=== PATIENT | male | born 1950 | race Caucasian/White ===

== ENCOUNTER → 2018-01-04 | Outpatient (CLI) | payer OTHER, BC ==
[~2018-01-04] MED LIST: B-COCAP2 PO; CINN1CAP2 PO; GLIM2TAB2 PO; LSN20 PO; MULT-506 PO; OMEG10007 PO; ZCR40 PO
[2018-01-04 19:01] LABS: HEMATOCRIT 39.1 % (42-52); HEMOGLOBIN 13.4 g/dL (14.0-18.0); MEAN CELL VOLUME 90.1 fL (80-100); MEAN CORPUSCULAR HEMOGLOBIN 30.9 pg (25-34); MEAN CORPUSCULAR HGB CONC 34.3 g/dl (32-36); MEAN PLATELET VOLUME 9.3 fL (7.4-10.4); PLATELET COUNT 133 K/uL (130-400); RED CELL DISTRIBUTION WIDTH CV 12.4 % (11.5-14.5); RED CELL DISTRIBUTION WIDTH SD 40.5 fL (36.4-46.3)
--- NOTE | 2018-01-04 19:40 | DIAGNOSTIC IMAGING REPORT ---
ULTRASOUND LEFT LOWER EXTREMITY VENOUS CLINICAL HISTORY: Left leg pain. COMPARISON STUDY: No priors. TECHNIQUE: Real-time, grayscale, and color Doppler sonography of the deep veins of the left lower extremity was performed from the inguinal crease to the calf. Compression and augmentation were utilized. FINDINGS: There is no sonographic evidence of deep venous thrombosis identified in the left lower extremity. The common femoral, superficial femoral, and popliteal veins are patent and normally compressible. The greater saphenous vein and the profunda femoris vein at the junction with the common femoral vein are clear. The visualized calf veins are patent. A popliteal cyst measures 2.2 x 1.6 x 3.3 cm. IMPRESSION: 1. There is no sonographic evidence of deep venous thrombosis identified in the left lower extremity. 2. Popliteal cyst. Electronically signed by: Dom Mendoza M.D. 01/04/2018 7:39 PM Dictated Date/Time: 01/04/2018 7:38 PM
== END | disposition home or self-care (01) ==
LOC: C.ULTR 18:11
PROVIDERS: ATTEND Physician Assistant
DX: M25.462 Effusion, left knee (principal); M71.22 Synovial cyst of popliteal space [Baker], left knee

== ENCOUNTER 2018-12-22 05:57 | Observation (INO) ==
--- OUTSIDE RECORDS SUMMARY | 2018-12-22 06:00 | External Medical Summary | Continuity of Care Document ---
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 , M.D. Start: 22-Feb-2018 Refills: 0 Atorvastatin Calcium 20 MG Oral Tablet; take 1 tablet by mouth once daily , M.D. Start: 22-Feb-2018 Refills: 0 90 Tablet Bottle Vitamin B Complex Oral Tablet; TAKE 1 TABLET DAILY. , M.D. Start: 22-Feb-2018 Refills: 0 Cinnamon 500 MG Oral Capsule; TAKE 1 CAPSULE Daily , M.D. Start: 22-Feb-2018 Refills: 0 Coenzyme Q-10 200 MG Oral Capsule; TAKE 1 CAPSULE Daily , M. D. Start: 22-Feb-2018 Refills: 0 Fish Oil 1000 MG Oral Capsule; TAKE 2 CAPSULE Daily , M.D. Start: 22-Feb-2018 Refills: 0 Glimepiride 2 MG Oral Tablet; TAKE 1 TABLET DAILY DIRECTE D. , M.D. Start: 22-Feb-2018 Refills: 0 Indomethacin 25 MG Oral Capsule; TAKE 1 CAPSULE 3 TIMES DAILY WITH FOOD NEEDED. , M.D. Start: 22-Feb-2018 Refills: 0 Lisinopril 20 MG Oral Tablet; TAKE 1 TABLET DAILY DIRECTE D. , M.D. Start: 22-Feb-2018 Quantity: 90 Refills: 3 Mometasone Furoate 50 MCG/ACT Nasal Susp ension; USE 2 SPRAYS IN EACH NOSTRIL ONCE DAILY , M.D. Start: 22-Feb-2018 Refills: 0 17 GM Inhaler Multi Vitamin Daily Oral Tablet; TAKE 1 TABLET DAILY. , M.D. Start: 22-Feb-2018 Refills: 0 Procedures Procedures not documented Immunizations Immunizations not documented Plan of Treatment Planned Observations Planned Goals not documented Results No Known Results Results not documented Encounters Appointment; Akira Pennington M.D. 23-Feb-2018 9:30 Encounter Diagnosis: Problem not documented
[2018-12-22] MEDS ORDERED: ONDANSETRON INJ 2 MG/ML 2 ML VIAL IV STA (07:14)
[2018-12-22] MEDS ORDERED: HYDROmorphone INJ 0.5 MG/0.5 ML SYR IV STA (07:14)
--- NOTE | 2018-12-22 07:18 | Emergency Department Note ---
ED Visit Note I, Dr. Vani Calix, PGY3, saw this patient with my attending, Dr. Brown, and participated in the care and management of this patient. Resident Activity Tracking Resident Involvement: Resident Care Provided Care Provided: Adult ED
--- NOTE | 2018-12-22 07:30 | Emergency Department Note ---
Entered by Angelica Millan acting as a scribe for Justin Brown MD History of Present Illness General Chief complaint: Rib Injury/Pain Stated complaint: Right rib pain Time Seen by Provider: 12/22/18 06:47 Source: patient History of Present Illness Onset (ago): hour(s) (this morning) Location: back (right-sided posterior ribs) Severity: severe Pain Consistency: + other (episode) Maximum Pain Intensity: 9 Quality: + sharp Relieved By: + medication (Fentanyl) and + other (lying still) Exacerbated By: + movement Associated symptoms: + denies other symptoms (dizziness, palpitations, difficulties breathing); no chest pain and no shortness of breath The patient is a 68 year old male that is presenting to the Emergency Room with complaints of an episode of sharp right-sided back and rib pain that started this morning around 0300. The patient reports that he was sleeping and felt a pop in his back that was followed by severe back spasms that the patient descr ibes as 10/10. He states that he was able to move to a chair but then was unable to move again secondary to the pain. He notes that his called EMS at that time. The patient reports that he took oxycodone but noticed no change in the pain. He notes that EMS gave him Fentanyl on the way to the Emergency Room which brought the pain to 5/10. He states that the pain is brought to a 0/10 when he is lying still, but he notes that the pain is exacerbated by any movement. He denies any chest pain, dizziness, palpitations, difficulties breathing, shortness of breath, or pain with movement of his arms. He notes that he fell and scraped his back in the same area 5 days ago but states that the pain has been improving with 2 daily doses of Ibuprofen. He reports that he has a history of controlled diabetes and gout. He denies taking any blood thinners. He states that he was in the Emergency Room for kidney stones 1 month ago, but he notes that he has passed a stone since then. The patient reports that he has a right-sided abdominal hernia that is unchanged. Home Medications Home Medications Medication Instructions Recorded Confirmed Type allopurinol 1 tab PO DAILY 11/18/18 12/22/18 History atorvastatin 20 mg PO DAILY 11/18/18 12/22/18 History cinnamon bark [Cinnamon] 500 mg PO DAILY 11/18/18 12/22/18 History coenzyme Q10 10 mg PO DAILY 11/18/18 12/22/18 History fish [id number]-vit C-vit E 1 cap PO DAILY 11/18/18 12/22/18 History glimepiride 2 mg PO DAILY 11/18/18 12/22/18 History indomethacin 25 mg PO TID PRN 11/18/18 12/22/18 History lisinopril 20 mg PO DAILY 11/18/18 12/22/18 History mometasone 2 spray INTRANASAL DAILY 11/18/18 12/22/18 History multivitamin 1 tab PO DAILY 11/18/18 12/22/18 History oxycodone 5 mg PO Q4H PRN #15 tab 11/18/18 12/22/18 Rx tamsulosin [Flomax] 0.4 mg PO DAILY #7 cap 11/18/18 12/22/18 Rx vitamin B complex 1 tab PO DAILY 11/18/18 12/22/18 History Allergies Allergy/AdvReac Type Severity Reaction Status Date / Time hydromorphone [From Dilaudid] AdvReac Intermediate vomiting Verified 12/22/18 13:23 Past Med/Surg History Medical History Hypertension (Chronic) HTN (hypertension) (Chronic) DM type 2 (diabetes mellitus, type 2) (Chronic) HLD (hyperlipidemia) (Chronic) History of prostate cancer (Chronic) Gout (Chronic) Hematuria Surgical History History of colonoscopy History of prostate surgery S/P cataract surgery S/P cholecystectomy History of cystoscopy Social History Preferred Language: Nepali Communication Ability: Effective Gyro Compass Tester Required: No Beliefs That Will Affect Care: None marital status: Current Living Situation: Spouse Other Information That Helps Us Care for You: No Feels Safe at Home: Yes Safety Concerns: Feels Safe At This Time Smoking Status: Never smoker Do You Dip or Chew Tobacco: No Hx Alcohol Use: Yes Alcohol type: wine Hx Substance Use: No Review of Systems See HPI for pertinent positives & negatives. and A total of 10 systems reviewed and were otherwise negative Physical Exam Vital Signs Vital Signs - 24 hr 12/22/18 06:05 12/22/18 09:54 12/22/18 11:18 Temperature 36.9 C Temperature Source Oral Sepsis Recent Fever Within 48 Hours No Sepsis Action Taken by Nursing No Action Required Pulse Rate 82 Pulse Rate [Left Finger] 87 77 Pulse Rhythm Regular Pulse Rhythm [Left Finger] Regular Pulse Strength Normal Pulse Strength [Left Finger] Normal Respiratory Rate 18 20 22 Respiratory Effort / Characteristics Non-Labored Spontaneous Non-Labored Spontaneous Respiratory Depth Normal Normal Respiratory Pattern Regular Regular Blood Pressure 130/89 Blood Pressure [Right Arm] 127/68 137/80 Blood Pressure Mean 102 Blood Pressure Mean [Right Arm] 87 99 Blood Pressure Position Lying Blood Pressure Position [Right Arm] Lying Pulse Oximetry 94 97 97 Oxygen Delivery Method Room Air Room Air Room Air 12/22/18 12:28 Temperature Temperature Source Sepsis Recent Fever Within 48 Hours Sepsis Action Taken by Nursing Pulse Rate Pulse Rate [Left Finger] 61 Pulse Rhythm Pulse Rhythm [Left Finger] Regular Pulse Strength Pulse Strength [Left Finger] Normal Respiratory Rate 18 Respiratory Effort / Characteristics Non-Labored Respiratory Depth Normal Respiratory Pattern Blood Pressure Blood Pressure [Right Arm] 131/79 Blood Pressure Mean Blood Pressure Mean [Right Arm] 96 Blood Pressure Position Blood Pressure Position [Right Arm] Sitting Pulse Oximetry 96 Oxygen Delivery Method Room Air General: Non-ill appearing older male who appears to be in significant pain with palpation of right posterior ribs. HEENT: Normal cephalic atraumatic. Pupils are equal round and reactive to light. Extraocular movements are intact. Oropharynx is pink with moist mucous membranes. No swelling of the mouth lips or tongue. Neck: Supple with a midline trachea. No meningeal signs or stiffness, no JVD or bruits. No Stridor. Chest: Clear to auscultation bilaterally. No wheezes or rhonchi. No increased work of breathing. No crepitus. Heart: regular rate and rhythm. Abdomen: Soft nontender, nondistended without rebound guarding or rigidity. Non- tender right-sided hernia that is unchanged from baseline. Extremities: No cyanosis clubbing or edema. No calf tenderness or asymmetry Spine/Back. No CVA tenderness Skin: Good turgor without rashes. Neurologic exam: Cranial nerves two through 12 are intact. Motor and sensation are intact and symmetrical throughout. Course 07:The patient was evaluated in room A09B. A complete history and physical examination was performed. 807: Upon re-evaluation, the patient continues to be in significant pain. I updated him on his current results. The patient will complete a CT scan once his pain and nausea improve. 1015: I updated the patient on his current lab and imaging results. The patient continues to experience pain and nausea. 1045: I reviewed the patient's case with Dr. Burch, [facility] Hospitalist, will evaluate the patient for further management. 1050: Upon reevaluation, the patient is resting comfortably. I discussed laboratory and radiographic results with the patient. He verbalized agreement of the treatment plan. The patient will be evaluated for further management and care. Consultations Consultation #1: I reviewed the patient's case with Dr. Burch, [facility] [address] talist, will evaluate the patient for further management. Time: 10:45 Administered Medications Allopurinol (Zyloprim) 100 mg PO DAILY [facility] Stop: 01/21/19 12:29 Last Admin: 12/22/18 13:48 Dose: 100 mg Documented by: [id number] Atorvastatin Calcium (Lipitor) 20 mg PO DAILY [facility] Stop: 01/21/19 12:29 Last Admin: 12/22/18 13:48 Dose: 20 mg Documented by: [id number] Fluticasone Propionate (Flonase) 2 sprays SHERIF DAILY [facility] Stop: 01/21/19 12:29 Last Admin: 12/22/18 13:47 Dose: 2 sprays Documented by: [id number] Ioversol (Optiray 320 100ml) 94 ml IV ONCE PRN PRN Reason: Interaction Checking Stop: 12/26/18 09:41 Last Admin: 12/22/18 09:42 Dose: 94 ml Documented by: [id number] Lidocaine (Lidoderm 5%) 1 patch TD QAM [facility] Stop: 01/21/19 13:59 Last Admin: 12/22/18 13:47 Dose: 1 patch Documented by: [id number] Discontinued Medications Diazepam (Valium) 5 mg PO NOW ONE Stop: 12/22/18 13:00 Last Admin: 12/22/18 13:55 Dose: 5 mg Documented by: [id number] Hydromorphone HCl (Dilaudid) 0.5 mg IV NOW STA Stop: 12/22/18 07:15 Last Admin: 12/22/18 07:29 Dose: 0.5 mg Documented by: [id number] Hydromorphone HCl (Dilaudid) 1 mg IV NOW STA Stop: 12/22/18 08:15 Last Admin: 12/22/18 08:19 Dose: 1 mg Documented by: [id number] Promethazine HCl 12.5 mg/ (Sodium Chloride) 50.5 mls @ 202 mls/hr IV NOW STA Stop: 12/22/18 10:10 Last Infusion: 12/22/18 10:25 Dose: 0 mls/hr Documented by: [id number] Admin: 12/22/18 10:06 Dose: 202 mls/hr Documented by: [id number] Ketorolac Tromethamine (Toradol) 30 mg IV NOW ONE Stop: 12/22/18 08:15 Last Admin: 12/22/18 08:19 Dose: 30 mg Documented by: [id number] Ketorolac Tromethamine (Toradol) 15 mg IV NOW STA Stop: 12/22/18 11:47 Last Admin: 12/22/18 12:21 Dose: Not Given Documented by: [id number] Ketorolac Tromethamine (Toradol) Confirm Administered Dose 30 mg .ROUTE .STK-MED ONE Stop: 12/22/18 11:55 Last Admin: 12/22/18 11:58 Dose: 30 mg Documented by: [id number] Ondansetron HCl (Zofran) 4 mg IV NOW STA Stop: 12/22/18 07:15 Last Admin: 12/22/18 07:29 Dose: 4 mg Documented by: [id number] Promethazine HCl (Phenergan) Confirm Administered Dose 12.5 mg IV .STK-MED ONE Stop: 12/22/18 10:01 Last Admin: 12/22/18 10:06 Dose: Not Given Documented by: [id number] Medical Decision Making Differential Diagnosis Differential Diagnosis: Etiologies such as rib fracture, pulmonary contusion, pneumothorax, kidney stones, electrolyte or metabolite abnormalities as well as others were considered. Medical Records Attestation: I reviewed the patient's medical records. Home Medications Current Medication List: was personally reviewed by me Laboratory Data Attestation: I reviewed the patient's lab results. Result diagrams: 12/22/18 07:45 12/22/18 07:45 Lab Results 12/22/18 12/22/18 Range/Units 07:45 07:45 WBC 6.19 (4.8-10.8) K/uL RBC 4.15 L (4.7-6.1) M/uL Hgb 13.3 L (14.0-18.0) g/dL Hct 37.4 L (42-52) % MCV 90.1 (80-100) fL MCH 32.0 (25-34) pg MCHC 35.6 (32-36) g/dL RDW Std Deviation 41.0 (36.4-46.3) fL RDW Coeff of Agustin 12.5 (11.5-14.5) % Plt Count 123 L (130-400) K/uL MPV 10.0 (7.4-10.4) fL Immature Gran % (Auto) 0.3 % Neut % (Auto) 51.0 % Lymph % (Auto) 33.4 % Wilkin % (Auto) 12.4 % Eos % (Auto) 2.1 % Baso % (Auto) 0.8 % Immature Gran # (Auto) 0.02 (0.00-0.02) K/uL Neut # (Auto) 3.15 (1.4-6.5) K/uL Lymph # (Auto) 2.07 (1.2-3.4) K/uL Wilkin # (Auto) 0.77 H (0.11-0.59) K/uL Eos # (Auto) 0.13 (0-0.5) K/uL Baso # (Auto) 0.05 (0-0.2) K/uL Sodium 138 (136-145) mmol/L Potassium 4.2 (3.5-5.1) mmol/L Chloride 108 H (98-107) mmol/L Carbon Dioxide 21 (21-32) mmol/L Anion Gap 9.0 (3-11) BUN 13 (7-18) mg/dl Creatinine 0.99 (0.6-1.4) mg/dl Est Cr Clr Drug Dosing 78.0 ml/min Est GFR ( Amer) 91.0 Est GFR (Non-Af Amer) 78.5 BUN/Creatinine Ratio 13.2 (10-20) Glucose 169 H (70-99) mg/dl Calcium 9.0 (8.5-10.1) mg/dl Total Bilirubin 0.4 (0.2-1) mg/dl AST 47 H (15-37) U/L ALT 64 (12-78) U/L Alkaline Phosphatase 73 (45-117) U/L Total Protein 7.1 (6.4-8.2) gm/dl Albumin 3.4 (3.4-5.0) gm/dl Globulin 3.7 (2.5-4.0) gm/dl Albumin/Globulin Ratio 0.9 (0.9-2) Imaging Data Radiologist's Impression: Radiology results as stated below per my review and the radiologist's interpretation: CT OF THE ABDOMEN AND PELVIS WITH CONTRAST CLINICAL HISTORY: eval for trauma COMPARISON STUDY: CT of the abdomen and pelvis November 18, 2018. TECHNIQUE: Following IV administration of 94 mL of Optiray-320, axial images of the abdomen and pelvis were obtained from the lung bases to the proximal femurs. Images were reviewed in the axial, sagittal, and coronal planes. IV contrast was administered without complication. Automated exposure control was utilized for the study. A dose lowering technique was utilized adhering to the principles of ALARA. FINDINGS: Note is made of nondisplaced acute fractures of the right eighth and ninth ribs and an acute mildly displaced fracture of the right 10th rib. There is fatty infiltration of the liver. There is no evidence for traumatic injury to the liver, spleen, adrenal glands, kidneys or pancreas. The gallbladder surgically absent. There is no biliary ductal dilatation. There is a small right flank contusion. No hemoperitoneum or pneumoperitoneum is present. The distal left ureteral calculus shown on CT of January 18, 2019 is no longer visualized. Caliber and wall thickness of small and large bowel are normal. Fat-containing ventral and umbilical hernias are noted. There is no acute lumbar spine or pelvic fracture. IMPRESSION: 1. No evidence of traumatic injury to the solid abdominal viscera. 2. Acute fractures of the right eighth, ninth and 10th ribs, better depicted on the chest CT. Small right flank/lower chest wall contusion. Electronically signed by: Jamison Kirk M.D. 12/22/2018 10:[address] OF THE CHEST WITH IV CONTRAST CLINICAL HISTORY: eval for trauma, rt lower rib pain COMPARISON STUDY: Chest CT July 05, 2014. Chest radiograph January 23, 2018. TECHNIQUE: Following IV administration of 94 mL of Optiray-320, helical axial images of the chest were obtained. Sagittal and coronal reconstructions were viewed as well as maximal intensity projections on an independent 3-D w orkstation. Automated exposure control was utilized for the study. A dose lowering technique was utilized adhering to the principles of ALARA. CT DOSE: 968.49 mGy.cm FINDINGS: There is no pneumothorax or pleural effusion. There is no evidence for traumatic injury to the thoracic aorta. No acute thoracic spine fracture is noted. Note is made of an acute nondisplaced fractures of the lateral right eighth and ninth ribs and an acute minimally displaced fracture of the posterior lateral right 10th rib. Fatty infiltration of the liver is noted. The CT of the abdomen and pelvis will be reported separately. IMPRESSION: 1. Acute minimally displaced fracture of the posterolateral right 10th rib. Acute nondisplaced fractures of the lateral right eighth and ninth ribs. No pneumothorax. 2. No additional acute traumatic findings within chest. Electronically signed by: Jamison Kirk M.D. 12/22/2018 10:06 AM ECG Data Attestation: I personally reviewed and interpreted this ECG as follows: Indication: back/shoulder pain Rate (beats per minute): 67 Rhythm: normal sinus Findings: + prolonged QT (mildly); no PAC, no PVC, no ST depression, no ST elevation, no acute ischemic change and no ectopy Comparison ECG Date: from (01/23/2018) Change: no significant change Blood Pressure Blood Pressure Findings: Normal blood pressure MDM Narrative This patient comes in as described above. He is complained of right posterior rib pain. He had a injury on Monday and has had some mild pain since then last night he felt a pop and has had pain it comes in spasms is significantly exacerbated when I palpate him. He does not appear to be any any shortness of breath or have any central chest pain no abdominal pain. No fever chills or cough. He has had kidney stones recently says this feels different .no dysuria or hematuria. IV access was established and blood work was obtained. He was ordered IV Dilaudid and Zofran. X-rays were obtained. He was reassessed frequently. He did continue to have pain and was given additional IV Dilaudid and Toradol. He seemed to have a lot of nausea and vomiting to some of which may have been related headaches or the pain was given additional IV Zofran as well as IV Phenergan. Rather doing x-rays, I did abdomen CAT scans and he does have 3 rib fractures on the right one is slightly displaced. No pneumothorax no pulmonary contusion. no internal organ injury or bleeding. His EKG does not suggest acute coronary syndrome or arrhythmias. no acute electrolyte or metabolic abnormality. given his ongoing pain and vomiting and nausea, I do think he should be admitted/observe for pain management further treatment and evaluation. [facility]. Impression & Plan Rib fracture, Intractable pain, Nausea, Chest pain Discharge Plan Visit Data *Final* Discharge Date/Time: 12/22/18 12:50 Chief Complaint: Rib Injury/Pain Stated Complaint: Right rib pain ED Provider: Justin Brown ED Midlevel Provider: Vani Calix Discharge Problem: Rib fracture, Intractable pain, Nausea, Chest pain Patient Disposition: Admitted As Inpatient Discharge Instructions Interventions: ED Discharge Assessment Last Done: 12/22/18 12:50 The scribe's documentation has been prepared under my direction and personally reviewed by me in its entirety. I confirm that the note above accurately reflects all work, treatment, procedures, and medical decision making performed by me.
[2018-12-22] MEDS ORDERED: HYDROmorphone INJ 1 MG/ML SYRINGE IV STA (08:14)
[2018-12-22] MEDS ORDERED: KETOROLAC 30 MG/ML VIAL IV ONE (08:14)
[2018-12-22 08:34] LABS: Basophils # (auto) 0.05 K/uL (0-0.2); Basophils % (auto) 0.8 %; Eosinophils # (auto) 0.13 K/uL (0-0.5); Eosinophils % (auto) 2.1 %; Hematocrit (blood only) 37.4 % (42-52); Hemoglobin 13.3 g/dL (14.0-18.0); Immature Granulocytes # (auto) 0.02 K/uL (0.00-0.02); Immature Granulocytes % (auto) 0.3 %; Lymphocytes # (auto) 2.07 K/uL (1.2-3.4); Lymphocytes % (auto) 33.4 %; Mean Corpuscular Hgb Conc 35.6 g/dL (32-36); Mean Corpuscular Volume 90.1 fL (80-100); Monocytes # (auto) 0.77 K/uL (0.11-0.59); Monocytes % (auto) 12.4 %; Neutrophils # (auto) 3.15 K/uL (1.4-6.5); Platelet Count 123 K/uL (130-400); RDW Coefficient of Variation 12.5 % (11.5-14.5); Red Blood Count 4.15 M/uL (4.7-6.1); White Blood Count 6.19 K/uL (4.8-10.8)
[2018-12-22 08:50] LABS: Albumin Level 3.4 gm/dl (3.4-5.0); BUN Creatinine Ratio 13.2 (10-20); Est GFR (Non-African American) 78.5; Potassium 4.2 mmol/L (3.5-5.1)
[2018-12-22 08:53] LABS: Albumin Globulin Ratio 0.9 (0.9-2); Bilirubin,Total 0.4 mg/dl (0.2-1); Globulin 3.7 gm/dl (2.5-4.0); Total Protein 7.1 gm/dl (6.4-8.2)
[2018-12-22] MEDS ORDERED: IOVERSOL 100ml IV PRN (09:42)
[2018-12-22] MEDS ORDERED: PROMETHAZINE HCL 12.5 MG in SODIUM CHLORIDE 0.9% 50 ML IV STA (09:56)
[2018-12-22] MEDS ORDERED: PROMETHAZINE 12.5 MG/50.5 ML NSS IV ONE (10:00)
--- NOTE | 2018-12-22 10:07 | CT Scan Report ---
CT OF THE CHEST WITH IV CONTRAST CLINICAL HISTORY: eval for trauma, rt lower rib pain COMPARISON STUDY: Chest CT July 05, 2014. Chest radiograph January 23, 2018. TECHNIQUE: Following IV administration of 94 mL of Optiray-320, helical axial images of the chest we re obtained. Sagittal and coronal reconstructions were viewed as well as maximal intensity projectio ns on an independent 3-D workstation. Automated exposure control was utilized for the study. A dose lowering technique was utilized adhering to the principles of ALARA. CT DOSE: 968.49 mGy.cm FINDINGS: There is no pneumothorax or pleural effusion. There is no evidence for traumatic injury to the thoracic aorta. No acute thoracic spine fracture is noted. Note is made of an acute nondisplaced fractures of the lateral right eighth and ninth ribs and an acute minimally displaced fracture of th e posterior lateral right 10th rib. Fatty infiltration of the liver is noted. The CT of the abdomen a nd pelvis will be reported separately. IMPRESSION: 1. Acute minimally displaced fracture of the posterolateral right 10th rib. Acute nondisplaced fractu res of the lateral right eighth and ninth ribs. No pneumothorax. 2. No additional acute traumatic findings within chest. Electronically signed by: Jamison Kirk M.D. 12/22/2018 10:06 AM
--- NOTE | 2018-12-22 10:18 | CT Scan Report ---
CT OF THE ABDOMEN AND PELVIS WITH CONTRAST CLINICAL HISTORY: eval for trauma COMPARISON STUDY: CT of the abdomen and pelvis November 18, 2018. TECHNIQUE: Following IV administration of 94 mL of Optiray-320, axial images of the abdomen and pelvi s were obtained from the lung bases to the proximal femurs. Images were reviewed in the axial, sagitt al, and coronal planes. IV contrast was administered without complication. Automated exposure contro l was utilized for the study. A dose lowering technique was utilized adhering to the principles of A SHIRIN. FINDINGS: Note is made of nondisplaced acute fractures of the right eighth and ninth ribs and an acut e mildly displaced fracture of the right 10th rib. There is fatty infiltration of the liver. There is no evidence for traumatic injury to the liver, spleen, adrenal glands, kidneys or pancreas. The gall bladder surgically absent. There is no biliary ductal dilatation. There is a small right flank contus ion. No hemoperitoneum or pneumoperitoneum is present. The distal left ureteral calculus shown on CT of January 18, 2019 is no longer visualized. Caliber and wall thickness of small and large bowel are norm al. Fat-containing ventral and umbilical hernias are noted. There is no acute lumbar spine or pelvic fracture. IMPRESSION: 1. No evidence of traumatic injury to the solid abdominal viscera. 2. Acute fractures of the right eighth, ninth and 10th ribs, better depicted on the chest CT. Small r ight flank/lower chest wall contusion. Electronically signed by: Jamison Kirk M.D. 12/22/2018 10:17 AM
[2018-12-22] MEDS ORDERED: KETOROLAC TROMETHAMINE 15 MG/ML VIAL IV STA (11:46)
[2018-12-22] MEDS ORDERED: KETOROLAC 30 MG/ML VIAL ONE (11:54)
[2018-12-22] MEDS ORDERED: OXYCODONE HCL IR 5 MG TAB (IMMEDIATE RELEASE) PO PRN (12:28)
--- NOTE | 2018-12-22 12:36 | History & Physical Report ---
Date of Service December 22, 2018 Assessment & Plan (1) Rib fracture: Traumatic rib fractures from a fall 3 days ago. Mild displaced 10th rib possibly occurred overnight when he turned around in bed. Extreme pain. Dilaudid made him ill. Will try morphine, tylenol, Toradol, Valium PRN. Thoracic surgery for consideration of intercostal nerve block. Other considerations are a lidocaine patch and ice. (2) Intractable pain: supportive care as above. (3) Nausea: Multifactorial etiology including pain and narcotics. Antiemetics as needed. Avoid Dilaudid. He had morphine during a prior ER visit and did OK with it. (4) Hypertension: controlled, however, will hold lisinopril in setting of Toradol use to reduce risk of BRANDT. (5) DM type 2 (diabetes mellitus, type 2): Hold outpatient glymepiride. Lantus/ISS loose #1 coverage. A1C in am. (6) History of prostate cancer: s/p prostate surgery (7) Gout: controlled, cont daily allopurinol. (8) DVT prophylaxis: SCDs for now pending procedure by thoracics. Full Code as discussed with patient and his on admission. Dispo-to home when pain is controlled. Renée Burch DO [facility] Hospitalist History of Present Illness Chief Complaint: R flank pain Primary Care Provider: Shorty Gonzales DO 68-year-old man presents 3 days after falling into a cedar chest in a dark room. This was a mechanical fall and there was no loss of consciousness reported. He reportedly hit his right posterior flank which still has some skin irritation present but no broken skin. He states that overnight he rolled over in bed and heard a "ping." He immediately experienced extreme pain that was not improved. He developed some nausea and came to the ER for pain control. In the ER he received 1.5 mg of IV Dilaudid which subsequently made him ill. He began vomiting. He was then given 4 mg of IV Zofran followed by 12.5 mg of promethazine and was starting to improve. He tolerated 2 doses of ketorolac. Imaging was performed and a CT revealed an acute minimally displaced fracture of the posterior lateral right 10th rib with acute nondisplaced fractures of the lateral right eighth and ninth ribs. No pneumothorax is present. There were no acute traumatic findings within the chest outside of this. There was no evidence of injury to the thoracic aorta. There was no evidence of pleural effusion. No hemoperitoneum or pneumoperitoneum was present. A small right flank/lower chest wall contusion was seen. Lab work was otherwise unremarkable aside from a mildly elevated AST and the patient admitted to recent alcohol use. Anesthesia was notified but does not perform intercostal nerve blocks. Thoracic surgery was consulted. Allergies Allergy/AdvReac Type Severity Reaction Status Date / Time hydromorphone [From Dilaudid] AdvReac Intermediate vomiting Verified 12/22/18 13:23 Home Medications Home Medications Medication Instructions Recorded Confirmed Type allopurinol 1 tab PO DAILY 11/18/18 12/22/18 History atorvastatin 20 mg PO DAILY 11/18/18 12/22/18 History cinnamon bark [Cinnamon] 500 mg PO DAILY 11/18/18 12/22/18 History coenzyme Q10 10 mg PO DAILY 11/18/18 12/22/18 History fish [id number]-vit C-vit E 1 cap PO DAILY 11/18/18 12/22/18 History glimepiride 2 mg PO DAILY 11/18/18 12/22/18 History indomethacin 25 mg PO TID PRN 11/18/18 12/22/18 History lisinopril 20 mg PO DAILY 11/18/18 12/22/18 History mometasone 2 spray INTRANASAL DAILY 11/18/18 12/22/18 History multivitamin 1 tab PO DAILY 11/18/18 12/22/18 History oxycodone 5 mg PO Q4H PRN #15 tab 11/18/18 12/22/18 Rx tamsulosin [Flomax] 0.4 mg PO DAILY #7 cap 11/18/18 12/22/18 Rx vitamin B complex 1 tab PO DAILY 11/18/18 12/22/18 History Past Med/Surg History Medical History Hypertension (Chronic) HTN (hypertension) (Chronic) DM type 2 (diabetes mellitus, type 2) (Chronic) HLD (hyperlipidemia) (Chronic) History of prostate cancer (Chronic) Gout (Chronic) Hematuria Surgical History History of colonoscopy History of prostate surgery S/P cataract surgery S/P cholecystectomy History of cystoscopy Social History Preferred Language: Indonesian Communication Ability: Effective [employer] Installer Required: No Beliefs That Will Affect Care: None marital status: Current Living Situation: Spouse Other Information That Helps Us Care for You: No Feels Safe at Home: Yes Safety Concerns: Feels Safe At This Time Smoking Status: Never smoker Do You Dip or Chew Tobacco: No Hx Alcohol Use: Yes Alcohol type: wine Hx Substance Use: No Review of Systems Review of Systems: At least ten systems were reviewed and negative except as indicated in HPI above. Physical Exam Physical Exam: CONSTITUTIONAL: WNWD, vitals as above, generally well- appearing, moderate distress, actively vomiting EYES: normal conjuctivae, no scleral icterus RESPIRATORY: clear to auscultation bilaterally, no crackles, rales or wheezes, normal respiratory effort CARDIOVASCULAR: regular rate and rhythm, S1 and 2 heard without murmurs, gallops or rubs, no JVD, no peripheral edema CHEST: inspection of chest was normal GASTROINTESTINAL: soft, nontender, nontender, nondistended MUSCULOSKELETAL: strength 5/5 throughout, head is normocephalic and atraumatic, ambulatory, no anterior chest wall tenderness to palpation. Significant TTP over R posterolateral 8-10 ribs. SKIN: warm and dry, mild contusion on posterolateral R flank area with no break in skin NEUROLOGIC: no gross focal deficits, ambulatory PSYCHIATRIC: alert cooperative and oriented to person, place and time. Results & Data Vital Signs (Past 12 Hours) Vital Signs Temp Pulse Pulse Resp BP BP Pulse Ox 12/22/18 12:28 61 18 131/79 96 12/22/18 11:18 77 22 137/80 97 12/22/18 09:54 87 20 127/68 97 12/22/18 06:05 36.9 C 82 18 130/89 94 Laboratory Results Short CBC 12/22/18 Range/Units 07:45 WBC 6.19 (4.8-10.8) K/uL Hgb 13.3 L (14.0-18.0) g/dL Hct 37.4 L (42-52) % Plt Count 123 L (130-400) K/uL BMP 12/22/18 07:45 Sodium 138 Potassium 4.2 Chloride 108 H Carbon Dioxide 21 BUN 13 Creatinine 0.99 Glucose 169 H Calcium 9.0 Liver Function 12/22/18 Range/Units 07:45 Total Bilirubin 0.4 (0.2-1) mg/dl AST 47 H (15-37) U/L ALT 64 (12-78) U/L Alkaline Phosphatase 73 (45-117) U/L Albumin 3.4 (3.4-5.0) gm/dl Diagnostic Findings CT OF THE CHEST WITH IV CONTRAST CLINICAL HISTORY: eval for trauma, rt lower rib pain COMPARISON STUDY: Chest CT July 05, 2014. Chest radiograph January 23, 2018. FINDINGS: There is no pneumothorax or pleural effusion. There is no evidence for traumatic injury to the thoracic aorta. No acute thoracic spine fracture is noted. Note is made of an acute nondisplaced fractures of the lateral right eighth and ninth ribs and an acute minimally displaced fracture of the posterior lateral right 10th rib. Fatty infiltration of the liver is noted. The CT of the abdomen and pelvis will be reported separately. IMPRESSION: 1. Acute minimally displaced fracture of the posterolateral right 10th rib. Acute nondisplaced fractures of the lateral right eighth and ninth ribs. No pneumothorax. 2. No additional acute traumatic findings within chest. CT OF THE ABDOMEN AND PELVIS WITH CONTRAST CLINICAL HISTORY: eval for trauma COMPARISON STUDY: CT of the abdomen and pelvis November 18, 2018. FINDINGS: Note is made of nondisplaced acute fractures of the right eighth and ninth ribs and an acute mildly displaced fracture of the right 10th rib. There is fatty infiltration of the liver. There is no evidence for traumatic injury to the liver, spleen, adrenal glands, kidneys or pancreas. The gallbladder surgically absent. There is no biliary ductal dilatation. There is a small right flank contusion. No hemoperitoneum or pneumoperitoneum is present. The distal left ureteral calculus shown on CT of January 18, 2019 is no longer visualized. Caliber and wall thickness of small and large bowel are normal. Fat-containing ventral and umbilical hernias are noted. There is no acute lumbar spine or pelvic fracture. IMPRESSION: 1. No evidence of traumatic injury to the solid abdominal viscera. 2. Acute fractures of the right eighth, ninth and 10th ribs, better depicted on the chest CT. Small right flank/lower chest wall contusion Code Status & VTE Plan Code Status Full VTE Prophylaxis Plan VTE Prophylaxis will be ordered: Yes Critical Care Time Critical Care Time: No (1) Rib fracture Encounter type: initial encounter Fracture type: closed Laterality: right Rib fracture type: multiple ribs Qualified Code(s): S22.41XA - Multiple fractur es of ribs, right side, initial encounter for closed fracture
[2018-12-22] MEDS ORDERED: diazePAM 5 MG TABLET PO ONE (12:59)
[2018-12-22] MEDS ORDERED: ACETAMINOPHEN 325 MG TAB PO PRN (12:59)
[2018-12-22] MEDS ORDERED: DEXTROSE 50% 50 ML SYRINGE IV PRN (12:59)
[2018-12-22] MEDS ORDERED: MoRPHine SULFATE 4 MG/ML 1 ML CARP\\VIAL IV PRN (12:59)
[2018-12-22] MEDS ORDERED: GLUCOSE 10 TABS/TUBE PO PRN (12:59)
[2018-12-22] MEDS ORDERED: GLUCOSE 40% GEL 15 GM TUBE PO PRN (12:59)
[2018-12-22] MEDS ORDERED: CARBOHYDRATES FOR HYPOGLYCEMIA PO PRN (12:59)
[2018-12-22] MEDS ORDERED: ONDANSETRON INJ 2 MG/ML 2 ML VIAL IV PRN (12:59)
[2018-12-22] MEDS ORDERED: GLUCAGON FOR INJ 1 MG VIAL SQ PRN (12:59)
[2018-12-22] MEDS: LIDOCAINE 5% 1 PATCH TD SCH (13:47)
[2018-12-22] MEDS: FLUTICASONE PROPIONATE NA SPR 16 GM BTL NAE SCH (13:47)
[2018-12-22] MEDS: ALLOPURINOL 100 MG TAB PO SCH (13:48)
[2018-12-22] MEDS: ATORVASTATIN 20 MG TAB PO SCH (13:48)
[2018-12-22] MEDS: INSULIN ASPART 100 UNITS/ML 3 ML PEN SC SCH ×2 (18:05→21:42)
[2018-12-22] MEDS: INSULIN GLARGINE SOLOSTAR 100 UNITS/ML 3 ML PEN SC SCH (21:42)
[2018-12-22] MEDS: KETOROLAC TROMETHAMINE 15 MG/ML VIAL IV PRN (21:43)
[2018-12-22] MEDS: diazePAM 5 MG TABLET PO PRN (22:43)
[2018-12-23] MEDS: KETOROLAC TROMETHAMINE 15 MG/ML VIAL IV PRN (04:36)
[2018-12-23 07:05] VITALS: BP 102/65; PULSE 71; TEMP 98.1; O2SAT 94
[2018-12-23 07:25] LABS: Hematocrit (blood only) 37.7 % (42-52); Hemoglobin 13.2 g/dL (14.0-18.0); Mean Corpuscular Volume 90.6 fL (80-100); Mean Platelet Volume 9.6 fL (7.4-10.4); Platelet Count 108 K/uL (130-400); RDW Coefficient of Variation 12.6 % (11.5-14.5); RDW Standard Deviation 41.6 fL (36.4-46.3); Red Blood Count 4.16 M/uL (4.7-6.1)
--- NOTE | 2018-12-23 07:49 | XRay Report ---
SINGLE VIEW CHEST CLINICAL HISTORY: Rib fractures. FINDINGS: An AP, portable, upright chest radiograph is compared to study dated 01/23/2018 and correlate d with chest CT dated 12/22/2018. The examination is degraded by portable technique and patient rotatio n. The cardiomediastinal silhouette is unremarkable, noting atherosclerotic calcification of the tho racic aorta. There is elevation of the right hemidiaphragm and bibasilar atelectasis. No airspace con solidation or large pleural effusion is identified. No pneumothorax is seen. Right lower rib fracture s are again noted. IMPRESSION: 1. Right-sided rib fractures are again noted. 2. No pneumothorax is seen. 3. There is no airspace consolidation or large pleural effusion. Electronically signed by: Dom Mendoza M.D. 12/23/2018 7:47 AM
[2018-12-23 07:57] LABS: BUN Creatinine Ratio 18.8 (10-20); Calcium 8.6 mg/dl (8.5-10.1); Creatinine Clr Calc Pharmacy 59.4 ml/min; Est GFR (African American) 65.4; Est GFR (Non-African American) 56.5; Potassium 4.1 mmol/L (3.5-5.1)
[2018-12-23] MEDS: LIDOCAINE 5% 1 PATCH TD SCH (09:03)
[2018-12-23] MEDS: ALLOPURINOL 100 MG TAB PO SCH (09:04)
[2018-12-23] MEDS: ATORVASTATIN 20 MG TAB PO SCH (09:04)
[2018-12-23] MEDS: FLUTICASONE PROPIONATE NA SPR 16 GM BTL NAE SCH (09:04)
[2018-12-23] MEDS: INSULIN GLARGINE SOLOSTAR 100 UNITS/ML 3 ML PEN SC SCH (09:07)
[2018-12-23] MEDS: INSULIN ASPART 100 UNITS/ML 3 ML PEN SC SCH ×2 (09:07→13:08)
[2018-12-23] MEDS: diazePAM 5 MG TABLET PO PRN (09:14)
--- NOTE | 2018-12-23 13:13 | Discharge Summary ---
Date of Service December 23, 2018 Admission HPI Per Admitting Provider 68-year-old man presents 3 days after falling into a cedar chest in a dark room. This was a mechanical fall and there was no loss of consciousness reported. He reportedly hit his right posterior flank which still has some skin irritation present but no broken skin. He states that overnight he rolled over in bed and heard a "ping." He immediately experienced extreme pain that was not improved. He developed some nausea and came to the ER for pain control. In the ER he received 1.5 mg of IV Dilaudid which subsequently made him ill. He began vomiting. He was then given 4 mg of IV Zofran followed by 12.5 mg of p romethazine and was starting to improve. He tolerated 2 doses of ketorolac. Imaging was performed and a CT revealed an acute minimally displaced fracture of the posterior lateral right 10th rib with acute nondisplaced fractures of the lateral right eighth and ninth ribs. No pneumothorax is present. There were no acute traumatic findings within the chest outside of this. There was no evidence of injury to the thoracic aorta. There was no evidence of pleural effusion. No hemoperitoneum or pneumoperitoneum was present. A small right flank/lower chest wall contusion was seen. Lab work was otherwise unremarkable aside from a mildly elevated AST and the patient admitted to recent alcohol use. Anesthesia was notified but does not perform intercostal nerve blocks. Thoracic surgery was consulted. Admission Exam Per Admitting Provider CONSTITUTIONAL: WNWD, vitals as above, generally well-appearing, moderate di stress, actively vomiting EYES: normal conjuctivae, no scleral icterus RESPIRATORY: clear to auscultation bilaterally, no crackles, rales or wheezes, normal respiratory effort CARDIOVASCULAR: regular rate and rhythm, S1 and 2 heard without murmurs, gallops or rubs, no JVD, no peripheral edema CHEST: inspection of chest was normal GASTROINTESTINAL: soft, nontender, nontender, nondistended MUSCULOSKELETAL: strength 5/5 throughout, head is normocephalic and atraumatic, ambulatory, no anterior chest wall tenderness to palpation. Significant TTP over R posterolateral 8-10 ribs. SKIN: warm and dry, mild contusion on posterolateral R flank area with no break in skin NEUROLOGIC: no gross focal deficits, ambulatory PSYCHIATRIC: alert cooperative and oriented to person, place and time. Principal Diagnosis Pain from Rib Fractures Discharge Exam ROS-No Headache, No Visual Changes, No Nausea, No Vomiting, No Fever, No Chills, No Neck Pain or Stiffness, No Chest Pain, No Palpitations, No SOB, No HERNANDEZ, No Cough, No Sputum, No Wheezing, No Abdominal Pain, No Diarrhea, No Hematemesis, No Hemoptysis, No Unexpected Weight Loss, No Flank pain, No Melena, No Hematochezia, No Frequency, No Urgency, No Burning, No Hematuria, No Rashes, No Diaphoresis. Appetite is Normal, +Rib Pain Physical Exam Gen-AAO x 3, NAD, Afebrile Head-NCAT, EOMI, PERRLA, Anicteric Sclera, No Posterior Pharyngeal Erythema Neck-Supple, No JVD, No Thyromegaly, No Masses, No LAD, No Bruits Lungs-Clear to Auscultation Bilaterally, No Rales, No Rhonchi, No Wheezing, No Crepitus Chest-No S4, +S1, +S2, No S3, No Murmurs, No Rubs, No Gallops, No Ectopy Abdomen-Soft, Bowel Sounds Present, Non Tender, Non Distended, No Hepatomegaly, No Splenomegaly, No Palpable Masses, No Rebound, No Rigidity, No Guarding Musculoskeletal-Full Range of Motion Bilaterally, No CVAT Extremities-No Cyanosis, No Clubbing, No Edema Nuero-Cranial Nerves II-XII grossly intact, Motor WNL, DTRs WNL, Strength WNL, Non Focal Psych-Normal Mood Discharge Data Allergies Allergy/AdvReac Type Severity Reaction Status Date / Time hydromorphone [From Dilaudid] AdvReac Intermediate vomiting Verified 12/22/18 13:23 Consultations 12/22/18 13:17 Consult Thoracic Surgery Routine Ordered Studies 12/22/18 08:25 CT abd pelvis IV con only Stat CT chest w con Stat Current Diagnoses Type 2 diabetes mellitus without complications (12/22/18) Essential (primary) hypertension (12/22/18) Gout, unspecified (12/22/18) Nausea (12/22/18) Pain, unspecified (12/22/18) Multiple fractures of ribs, right side, initial encounter for closed fracture (12/22/18) Personal history of malignant neoplasm of prostate (12/22/18) Allergies hydromorphone [From Dilaudid] Adverse Reaction (Intermediate, Verified 12/22/18 13:23) vomiting Height/Weight/Isolation Height 5 ft 7 in Weight 91.2 kg Chemistry 12/22/18 12/23/18 07:45 07:00 Sodium 138 135 L Potassium 4.2 4.1 Chloride 108 H 105 Carbon Dioxide 21 24 Anion Gap 9.0 6.0 BUN 13 24 H D Creatinine 0.99 1.30 D Glucose 169 H 158 H Hospital Course (1) Rib fracture: Traumatic rib fractures from a fall 3 days ago. Mild displaced 10th rib possibly occurred overnight when he turned around in bed. Extreme pain. Dilaudid made him ill. Will try morphine, tylenol, Toradol, Valium PRN. Thoracic surgery for consideration of intercostal nerve block. Other considerations are a lidocaine patch and ice. Will DC today on Salonpas, Ativan, Motrin and tylenol (2) Intractable pain: supportive care as above. (3) Nausea: Multifactorial etiology including pain and narcotics. Antiemetics as needed. Avoid Dilaudid. He had morphine during a prior ER visit and did OK with it. (4) Hypertension: controlled, however, will hold lisinopril in setting of Toradol use to reduce risk of BRANDT. (5) DM type 2 (diabetes mellitus, type 2): Hold outpatient glymepiride. Lantus/ISS loose #1 coverage. (6) History of prostate cancer: s/p prostate surgery (7) Gout: controlled, cont daily allopurinol. (8) DVT prophylaxis: Dispo-to home today Total Time Total Time Spent Total Time Spent (In Minutes): 45 mins Total Time Includes: Examination of the Patient, Discharge Planning, Medication Reconciliation and Communication With Other Providers Discharge Plan Discharge Items Patient Disposition: Home - Self-Care Reason For Visit: PAIN S/P FALL Discharge Diagnosis: Rib Fractures Discharge Goals: Decrease discomfort Activity: Resume your previous activity Lifting: Gradually increase as tolerated Bathing: No limitations Sexual Activity: When tolerated Exercise/Sports: Gradually increase as tolerated Driving/Machine Use: No limitations Weightbearing: Left weightbearing and Right weightbearing Non-emergency contact: Primary Care Provider Call non-emergency contact if: you have any medication questions and your symptoms worsen Follow-up/Referrals: Shorty Gonzales, [Primary Care Provider] - 12/26/18 10:55 am Diet: Regular Addtl Provider Instructions: None Prescriptions: New acetaminophen [Tylenol Extra Strength] 500 mg tablet 500 mg PO .[id number] Qty: 90 RF: 0 ibuprofen 400 mg tablet 400 mg PO Q6H PRN (Reason: fever or pain) Qty: 90 RF: 0 ketorolac 10 mg tablet 10 mg PO Q8H PRN (Reason: pain) Qty: 10 RF: 0 No Action multivitamin Tablet 1 tab PO DAILY RF: 0 atorvastatin 20 mg tablet 20 mg PO DAILY RF: 0 lisinopril 20 mg tablet 20 mg PO DAILY RF: 0 coenzyme Q10 10 mg Capsule 10 mg PO DAILY RF: 0 allopurinol 100 mg tablet 1 tab PO DAILY RF: 0 glimepiride 2 mg tablet 2 mg PO DAILY RF: 0 indomethacin 25 mg capsule 25 mg PO TID PRN (Reason: gout flare) RF: 0 fish zap-gervn-4-vit C-vit E 2,000-650-12 mg/2.5 gram Emulsion In Packet 1 cap PO DAILY RF: 0 mometasone 50 mcg/actuation spray,non-aerosol 2 spray intranasal DAILY RF: 0 vitamin B complex Tablet 1 tab PO DAILY RF: 0 cinnamon bark [Cinnamon] 500 mg Capsule 500 mg PO DAILY RF: 0 tamsulosin [Flomax] 0.4 mg capsule 0.4 mg PO DAILY Qty: 7 RF: 0 oxycodone 5 mg tablet 5 mg PO Q4H PRN (Reason: pain) Qty: 15 RF: 0 Stand-Alone Forms: [facility] Discharge Orders: Discharge Order (Routine); Ordered 12/23/18 Ordered By: Krzysztof Garcia Admission Data Admit Date/Time: 12/22/18 11:37 Attending Provider: Krzysztof Garcia Admit Provider: Renée Burch Primary Care Provider: Shorty Gonzales Other Providers: Jose Vences Service: Medical
--- NOTE | 2018-12-23 22:17 | Consultation Report ---
DATE OF CONSULTATION: 12/23/2018 REASON FOR CONSULTATION: Right-sided rib fractures. 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 He turned in bed and I had such pain he could not move and 911 was called and EMS brought him into the Emergency Room. He was admitted by Dr. Renée Burch. I was asked to see the patient about possibly performing a block. Narcotics make him extremely nauseated and he will not use them. He has found that Valium has helped him. I met with the patient and his today. His pain is better this morning. He has a lidocaine patch and he is taking narcotics with Valium and is much better. We had a long discussion about different ways to handle rib fractures. The patient has had rib fractures in the past. This fracture is minimally displaced and I see only a single rib. PAST MEDICAL HISTORY: 1. History of rib fractures. 2. Adult onset diabetes mellitus. 3. History of carcinoma of the prostate. 4. History of gout. PAST SURGICAL HISTORY: 1. Cholecystectomy. 2. Cataract extraction with lens implants. 3. Prostatectomy. 4. Colonoscopy. 5. Cystoscopies. SOCIAL HISTORY: The patient occasionally drinks wine. He does not use tobacco. He has never smoked. He is originally from [place], [place]. 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 He lives at home with his . He retired here to [place] primarily because of the fly fishing. He is independent in his activities of daily living. FAMILY MEDICAL HISTORY: The patient's son at age 26 and we did not delve into the reasons. His daughter is healthy. REVIEW OF SYSTEMS: The patient states he has been eating well and drinking well until this occurred just a few days ago. He denies any skin breakdown. He has had no visual or auditory symptoms. He denies hemoptysis or productive cough. He has had no palpitations or substernal chest pressure. He has had no peripheral edema or joint effusions. Neurologically, he has been completely intact. PHYSICAL EXAMINATION: GENERAL: This is a 5 feet 7 inch, 200-pound male who is awake, alert and oriented. HEENT: His extraocular movements are intact. His pupils are equal, round and reactive. Sclerae are anicteric. He has a pierre. His tongue is midline. He has no oral mucosal lesions. NECK: Supple. I detect no supraclavicular or cervical lymphadenopathy or neck vein distention. LUNGS: Clear. HEART: He has no wheezing or rales. HEART: He has regular rate and rhythm of his heart. I see no ecchymosis and he has no crepitus in his chest. He does have a patch over his area of his rib. ABDOMEN: Soft, except in the right upper quadrant where due to his rib fracture he has pain on palpation. He has good bowel sounds. He has had no peripheral edema. He has good peripheral pulses. NEUROLOGIC: He is completely intact. ASSESSMENT AND PLAN: Minimally displaced right lateral tenth rib fracture. The x-ray also feels that there is a nondisplaced fracture of the 8th and 9th ribs; however, these are very subtle findings. He has no evidence of a pleural effusion. He has no evidence of a pneumothorax. ASSESSMENT AND PLAN: Day #4 status post right rib fractures. We had a long talk about this and I did explain to him that an intercostal block may be helpful, but it is a temporizing measure. I do not think that a referral to the pain specialist for a ferry terminal agent block is appropriate here. I told him he is going to take time, but he will get over it and having rib fracture in the past he understands. I did give the patient my card and I will be glad to see him back at any time, but I think he can be discharged home. JANINA
[2018-12-24 06:45] LABS: Estimated Average Glucose 146 mg/dl; Hemoglobin A1C 6.7 % (4.5-5.6)
== END 2018-12-23 14:28 | disposition home or self-care (01) ==
LOC: ED 05:57 → 3W 05:57

== ENCOUNTER 2024-03-04 09:53 | Inpatient (IN) ==
[2024-03-04] MEDS: OPTIRAY 320 125ml IV ONE (10:23)
--- NOTE | 2024-03-04 10:36 | Emergency Department Note ---
Impression & Plan Stroke-like symptoms, Anemia, Acute lower GI bleeding, Carotid arterial disease ED Provider Note NAME: KULWINDER LOTT AGE: 73 SEX: M : 1950 ARRIVES VIA: Walk-In INFORMANT: Patient, the patient's significant other ED PROVIDER(S): Chilo Patterson DO CHIEF COMPLAINT: Strokelike symptoms HPI: The patient is a 73-year-old male who was made a stroke alert from triage. The patient states that he has been having symptoms over the course of the last few months but the symptoms worsen especially over the last 24 hours. He was made a stroke alert because of a left facial droop as well as problems with vision in his left eye. The patient denies having any nausea or vomiting. He states he has dizziness upon standing. He has a history of metastatic prostate cancer and has been experiencing rectal bleeding recently. The patient has had no vomiting. He denies having any headache. He denies having any recent trauma but his significant other states he may have had a fever last week. The patient has not been seen by his family doctor but came directly to the emergency department because of the symptoms. ROS: See above HPI for pertinent positives & negatives. A total of 10 systems reviewed and were otherwise negative. PAST MEDICAL HISTORY: See Below PAST SURGICAL HISTORY: See Below FAMILY HISTORY: See Below SOCIAL HISTORY: See Below HOME MEDICATIONS: See Below ALLERGIES: See Below VITALS: See Below PHYSICAL EXAMINATION: GENERAL: Patient is awake alert in no acute distress patient is resting comfortably and showing no signs of anxiety EYES: The conjunctivae are pale. The pupils are round and reactive. EARS, NOSE, MOUTH AND THROAT: The nose is without any evidence of any deformity. NECK: The neck is nontender and supple. RESPIRATORY: Normal respiratory effort is noted there is no evidence of wheezing rhonchi or rales CARDIOVASCULAR: Regular rate and rhythm noted there no murmurs rubs or gallops normal S1 normal S2. GASTROINTESTINAL: The abdomen is soft. Abdomen is nontender. MUSCULOSKELETAL/EXTREMITIES: There is no evidence of gross deformity full range of motion is noted in the hips and shoulders. SKIN: Trace pedal edema was noted bilaterally. Skin was pale and cool. NEUROLOGIC: Patient is awake alert and oriented x 3. There is a left-sided facial droop with forehead sparing. There is no drift in the upper extremities. MEDICAL DECISION MAKING: The patient is a 73-year-old male who presented to the emergency department for an evaluation of strokelike symptoms. The patient was having problems with his left vision and also appeared to have a facial droop. It was unclear exactly when the symptoms started. The patient was not felt to be a candidate for TNK because the onset of symptoms was not completely well-known and not inside the 4 and half hour window but the patient was also very anemic with GI bleeding. I discussed the patient's laboratory and radiographic studies with him. He was ordered for blood transfusion. I did consent the patient and ordered the blood transfusion. I [facility] have agreed to evaluate the patient in the emergency department for further management and disposition. Triage Nursing notes reviewed. Prior medical records reviewed Vital Signs: reviewed and remarkable for no significant abnormalities Differential diagnosis: Infection, dehydration, metabolic abnormality, hypo/hyperglycemia, electrolyte disturbance, anemia, hypoxia, cardiac sources, intracerebral event, toxicologic, neurologic, as well as other pathologies. ER treatment provided: See below Diagnostics interpreted by me: ECG: EKG was obtained in the emergency department. My interpretation is normal sinus rhythm at 89 bpm. There is no ectopy. Nonspecific ST segment abnormalities were noted. This was compared to a tracing from December 22, 2018. No changes were noted. Cardiac Monitoring: An order was placed for continuous cardiac monitoring. The monitor shows a rate of 75 bpm with sinus rhythm. Laboratory studies: As stated above and show below. Imaging studies: See below. Radiographic imaging was reviewed by myself Consultation(s): I discussed this case with Dr. Chin who [facility] ED COURSE: Procedures: none Critical Care: I have personally spent greater than 45 minutes of critical care time in the direct management of this patient. This includes bedside care, interpretation of diagnostic studies, and testing, discussion with consultants, patient, and family members, and other required patient management activities. This 45 minutes is in excess of all separately billable procedures. Past Med/Surg History Problem List (Updated 03/04/24 @ 12:11 by New Chin MD) Radiation proctitis Carotid arterial disease (Acute) Acute lower GI bleeding (Acute) Anemia (Acute) Stroke-like symptoms (Acute) Rectal bleeding Prostate cancer (Chronic) Recurrent prostate cancer (Chronic) Incisional hernia Fever Lactic acid acidosis Lactic acidosis (Acute) Rib fracture (Acute) Intractable pain (Acute) Nausea (Acute) DVT prophylaxis Chest pain (Acute) History of colonoscopy Hypertension (Chronic) HTN (hypertension) (Chronic) DM type 2 (diabetes mellitus, type 2) (Chronic) HLD (hyperlipidemia) (Chronic) History of prostate cancer (Chronic) s/p prostatectomy (2009) Gout (Chronic) Medical History Anaplasmosis Thrombocytopenia Chronic- platelets baseline in the s per chart review dating back to at least 2018 (S). Appears to have been initially noted during active anaplasmosis infection at that time which was treated. Surgical History History of umbilical hernia repair S/P cataract surgery right and left S/P cholecystectomy History of prostate surgery prostatectomy 2008 History of cystoscopy Family History Mother Coronary heart disease Father No problems noted. 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 Feels Safe at Home: Yes Assistive Devices: Glasses Allergies Allergies Allergy/AdvReac Type Severity Reaction Status Date / Time fentanyl AdvReac Intermediate Vomiting Verified 03/04/24 13:00 hydromorphone [From Dilaudid] AdvReac Intermediate vomiting Verified 03/04/24 13:00 oxycodone AdvReac Mild Nausea Verified 03/04/24 13:00 Home Meds Home Medications Medication Instructions Recorded Confirmed allopurinol 100 mg tablet 100 mg PO QAM 11/18/18 03/04/24 atorvastatin 20 mg tablet 20 mg PO HS 11/18/18 03/04/24 coenzyme Q10 10 mg capsule 10 mg PO QAM 11/18/18 03/04/24 lisinopril 20 mg tablet 20 mg PO QAM 11/18/18 03/04/24 mometasone 50 mcg/actuation nasal 2 spray intranasal DAILY PRN 11/18/18 03/04/24 spray Allergy Symptoms multivitamin 1 tab PO QAM 11/18/18 03/04/24 vitamin B complex 1 tab PO QAM 11/18/18 03/04/24 cetirizine 10 mg tablet (Zyrtec) 10 mg PO DAILY PRN Allergy Symptoms 11/22/21 03/04/24 calcium carb-ergocalciferol (vit 1,000 tab PO DAILY 02/13/23 03/04/24 D2) 500 mg-125 unit tablet cholecalciferol (vitamin D3) 25 25 mcg PO DAILY 02/13/23 03/04/24 mcg (1,000 unit) capsule vitamin E mixed 400 unit capsule 400 unit PO QAM 02/13/23 03/04/24 glimepiride 4 mg tablet 4 mg PO QAM 03/04/24 03/04/24 mesalamine 1,000 mg rectal 1,000 mg VA HS 03/04/24 03/04/24 suppository Results & Data (ED) Vital Signs Vital Signs - 24 hr 03/04/24 10:01 03/04/24 10:29 03/04/24 10:39 Temperature 36.8 C Temperature Source Temporal Artery Scan Pulse Rate 93 H 77 Pulse Rate [Apical] 86 Pulse Rate from SpO2 Sensor 77 Pulse Rhythm Pulse Strength Respiratory Rate 18 14 14 Respiratory Effort / Characteristics Non-Labored Spontaneous Respiratory Depth Normal Respiratory Pattern Regular Blood Pressure 98/57 L Blood Pressure [Right Arm] 123/71 Blood Pressure Mean 70 Blood Pressure Mean [Right Arm] 88 Blood Pressure Position Sitting Pulse Oximetry 100 100 100 Oxygen Delivery Method Room Air Room Air Sepsis Recent Fever Within 48 Hours No Sepsis New/Unexplained Change in Mental Status No Sepsis Action Taken by Nursing No Action Required 03/04/24 10:42 03/04/24 11:00 03/04/24 11:00 Temperature Temperature Source Pulse Rate 86 Pulse Rate [Apical] Pulse Rate from SpO2 Sensor Pulse Rhythm Pulse Strength Respiratory Rate Respiratory Effort / Characteristics Respiratory Depth Respiratory Pattern Blood Pressure 113/68 113/68 Blood Pressure [Right Arm] Blood Pressure Mean 92 92 Blood Pressure Mean [Right Arm] Blood Pressure Position Pulse Oximetry Oxygen Delivery Method Sepsis Recent Fever Within 48 Hours Sepsis New/Unexplained Change in Mental Status Sepsis Action Taken by Nursing 03/04/24 11:00 03/04/24 11:30 03/04/24 11:38 Temperature Temperature Source Pulse Rate 75 83 Pulse Rate [Apical] Pulse Rate from SpO2 Sensor 75 Pulse Rhythm Pulse Strength Respiratory Rate 12 16 Respiratory Effort / Characteristics Respiratory Depth Respiratory Pattern Blood Pressure 116/54 L Blood Pressure [Right Arm] Blood Pressure Mean 72 Blood Pressure Mean [Right Arm] Blood Pressure Position Pulse Oximetry 100 Oxygen Delivery Method Sepsis Recent Fever Within 48 Hours Sepsis New/Unexplained Change in Mental Status Sepsis Action Taken by Nursing 03/04/24 11:54 03/04/24 12:00 03/04/24 12:00 Temperature Temperature Source Pulse Rate 78 Pulse Rate [Apical] Pulse Rate from SpO2 Sensor 76 Pulse Rhythm Pulse Strength Respiratory Rate 21 Respiratory Effort / Characteristics Respiratory Depth Respiratory Pattern Blood Pressure 110/61 110/61 Blood Pressure [Right Arm] Blood Pressure Mean 81 81 Blood Pressure Mean [Right Arm] Blood Pressure Position Pulse Oximetry 98 Oxygen Delivery Method Sepsis Recent Fever Within 48 Hours Sepsis New/Unexplained Change in Mental Status Sepsis Action Taken by Nursing 03/04/24 12:15 03/04/24 12:59 03/04/24 13:15 Temperature 36.7 C 36.6 C Temperature Source Oral Oral Pulse Rate 76 77 75 Pulse Rate [Apical] Pulse Rate from SpO2 Sensor 76 Pulse Rhythm Regular Pulse Strength Normal Respiratory Rate 15 18 18 Respiratory Effort / Characteristics Respiratory Depth Respiratory Pattern Blood Pressure 117/62 115/70 Blood Pressure [Right Arm] Blood Pressure Mean 80 85 Blood Pressure Mean [Right Arm] Blood Pressure Position Lying Pulse Oximetry 98 100 Oxygen Delivery Method Sepsis Recent Fever Within 48 Hours Sepsis New/Unexplained Change in Mental Status Sepsis Action Taken by Nursing 03/04/24 13:30 03/04/24 14:00 03/04/24 14:41 Temperature Temperature Source Pulse Rate 70 69 76 Pulse Rate [Apical] Pulse Rate from SpO2 Sensor Pulse Rhythm Regular Regular Pulse Strength Normal Normal Respiratory Rate 20 18 Respiratory Effort / Characteristics Respiratory Depth Respiratory Pattern Blood Pressure 101/61 104/61 Blood Pressure [Right Arm] Blood Pressure Mean 74 75 Blood Pressure Mean [Right Arm] Blood Pressure Position Lying Lying Pulse Oximetry 100 100 Oxygen Delivery Method Sepsis Recent Fever Within 48 Hours Sepsis New/Unexplained Change in Mental Status Sepsis Action Taken by Nursing 03/04/24 14:45 03/04/24 15:12 03/04/24 15:30 Temperature 36.8 C 36.8 C Temperature Source Oral Oral Pulse Rate 76 71 75 Pulse Rate [Apical] Pulse Rate from SpO2 Sensor Pulse Rhythm Regular Regular Pulse Strength Normal Normal Respiratory Rate 18 12 14 Respiratory Effort / Characteristics Respiratory Depth Respiratory Pattern Blood Pressure 117/65 121/64 120/76 Blood Pressure [Right Arm] Blood Pressure Mean 82 83 90 Blood Pressure Mean [Right Arm] Blood Pressure Position Lying Lying Pulse Oximetry 99 100 100 Oxygen Delivery Method Sepsis Recent Fever Within 48 Hours Sepsis New/Unexplained Change in Mental Status Sepsis Action Taken by Jail Medications Current Medication List: was personally reviewed by me Laboratory Data Attestation: I reviewed the patient's lab results. 03/04/24 10:29 03/04/24 10:29 Lab Results 03/04/24 03/04/24 03/04/24 Range/Units 10:29 10:31 11:37 WBC 3.20 L (4.8-10.8) K/ul RBC 1.99 L (4.70-6.10) M/uL Hgb 5.9 L* (14.0-18.0) g/dl Hct 19.3 L* (42.0-52.0) % MCV 97.0 (80.0-100.0) fL MCH 29.6 (25.0-34.0) pg MCHC 30.6 L (32.0-36.0) g/dL RDW Std Deviation 50.6 H (36.4-46.3) fL RDW Coeff of Agustin 14.6 H (11.5-14.5) % Plt Count 102 L (130-400) K/uL MPV 9.5 (9.4-12.4) fL Immature Gran % (Auto) 0.3 % Neut % (Auto) 57.8 % Lymph % (Auto) 20.0 % Power % (Auto) 16.9 % Eos % (Auto) 4.4 % Baso % (Auto) 0.6 % Neut # (Auto) 1.85 (1.40-6.50) K/uL Lymph # (Auto) 0.64 L (1.20-3.40) K/uL Power # (Auto) 0.54 (0.11-0.59) K/uL Eos # (Auto) 0.14 (0.00-0.50) K/uL Baso # (Auto) 0.02 (0.00-0.20) K/uL Immature Gran # (Auto) 0.01 (0.01-0.20) K/uL Polychromasia 1+ Tear Drop Cells 1+ PT 11.7 (9.0-12.0) Seconds INR 1.1 (0.9-1.1) APTT 23 (21-31) Seconds PTT Ratio 0.9 Sodium 135 L (136-145) mmol/L Potassium 4.1 (3.5-5.1) mmol/L Chloride 107 (98-107) mmol/L Carbon Dioxide 21 (21-32) mmol/L Anion Gap 7 (3-11) BUN 13 (6-23) mg/dl Creatinine 0.99 (0.6-1.4) mg/dl Est Cr Clr Drug Dosing 68.7 ml/min Est GFR ( Amer) 87.8 ml/min Est GFR (Non-Af Amer) 75.8 ml/min BUN/Creatinine Ratio 13.1 (10-20) Glucose 132 H (70-99(Fasting)) mg/dl POC Glucose 142 H (70-99) mg/dl Calcium 8.4 L (8.6-10.3) mg/dl Magnesium 1.9 (1.7-2.4) mg/dl Total Bilirubin 0.4 (0.2-1.0) mg/dl AST 15 (13-39) U/L ALT 11 (7-52) U/L Alkaline Phosphatase 61 (34-104) U/L Troponin I High Sens 3.5 (0-20) pg/ml Total Protein 5.5 L (6.0-8.3) gm/dl Albumin 3.3 L (3.4-5.0) gm/dl Globulin 2.2 L (2.5-4.0) gm/dl Albumin/Globulin Ratio 1.5 (0.9-2) Blood Type A Positive Blood Type Recheck A Positive Antibody Screen NEGATIVE Crossmatch See Detail Administered Medications Discontinued Medications Sodium Chloride (Nss) 500 mls @ 999 mls/hr IV .Q31M ONE Stop: 03/04/24 11:09 Last Infusion: 03/04/24 15:12 Dose: Infused Documented By: Admin: 03/04/24 11:58 Dose: 999 mls/hr Documented By: STEPHEN Ioversol (Optiray 320 125ml) 112 ml IV ONCE ONE Stop: 03/04/24 10:24 Last Admin: 03/04/24 10:23 Dose: 112 ml Documented By: HANNAH Imaging Data Attestation: I personally reviewed and interpreted this imaging study as follows: My Impression: 1 view chest x-ray was obtained in the emergency department. My interpretation is no free air or definite infiltrate, final report below. CT of the brain was obtained in the emergency department. My interpretation is no intracranial hemorrhage or mass effect, final report below. Radiologist's Impression: Chest X-Ray 03/04/24 10:16 XR chest 1V portable CLINICAL HISTORY: neuro deficit, acute stroke suspected TECHNIQUE: Single frontal radiograph of the chest was obtained. Comparison: Comparison is made to chest radiograph 12/23/2018 FINDINGS: No lines and tubes are seen. Calcified aortic knob is seen. The lungs are clear. No evidence of pleural effusion or pneumothorax. IMPRESSION: No acute chest disease. ACT 112: Negative or not required by law. Electronically signed by: Trell Dudley M.D. 03/04/2024 10:[address] 03/04/24 10:16 CT head/brain wo con CLINICAL HISTORY: neuro deficit, acute stroke suspected Technique: Contiguous axial CT images of the head were acquired from the base of the skull to the vertex without intravenous contrast administration. Images were viewed in brain, subdural and bone windows. Automated dose lowering techniques and/or adjustment according to patient size were utilized for this exam. Comparison: None available at the time of this dictation. Findings: Areas of decreased attenuation are present in the periventricular and subcortical white matter bilaterally consistent with small vessel ischemic disease. Generalized cerebral atrophy with commensurate enlargement of the ventricles, sulci, and cisterns is also present. There is no acute intracranial hemorrhage or evidence of acute territorial infarction. No shift of the midline structures, mass effect, or extra-axial abnormalities are shown. Atherosclerotic calcifications are present in the intracranial segments of the internal carotid arteries. Imaged portions of the paranasal sinuses and mastoid air cells are clear. The orbits appear normal. There are no acute fractures of the calvaria or scalp swelling. Impression: No acute intracranial hemorrhage, no evidence of acute territorial infarction or other acute intracranial disease process. ACT 112: Negative or not required by law. Electronically signed by: Trell Dudley M.D. 03/04/2024 10:38 AM Head CTA 03/04/24 10:16 CT ANGIOGRAM OF THE BRAIN CLINICAL HISTORY: Neurological deficit. Stroke like symptoms. COMPARISON STUDY: Unenhanced CT of the brain performed concurrently on 03/04/2024. TECHNIQUE: Following the IV administration of 112 cc of Optiray 320, CT angiogram of the brain was performed from the skull base to the vertex. Images are reviewed in the axial, sagittal, and coronal planes. 3-D MIPS images are created and assessed. IV contrast was administered without complication. A dose lowering technique was utilized adhering to the principles of ALARA. CT DOSE: 1322.69 mGy.cm FINDINGS: Brain parenchyma: There is age-related involutional change noting mild subcortical and periventricular microangiopathic disease. There is no evidence of hemorrhage, mass effect, or acute territorial ischemia noting angiographic phase technique. There is no evidence of enhancing mass lesion on the angiogram phase images. No extra-axial fluid collection is seen. Billingsley-white matter differentiation is preserved. Ventricles, sulci, and cisterns: Prominent secondary to involutional change. CT angiogram of the brain: There is atherosclerotic calcification of the cavernous carotid and vertebral arteries. The internal carotid arteries are widely patent, as are the anterior and middle cerebral arteries. The vertebrobasilar system and posterior cerebral arteries are widely patent. The vertebral arteries are codominant. There is no aneurysm, high-grade stenosis, or focal vessel cutoff identified throughout the intracranial circulation. Dural sinuses: Clear as visualized. Orbits: The bony orbits are intact. The orbital contents are normal as visualized noting bilateral ocular lens implants. Sinuses and mastoids: There is moderate mucosal thickening within the maxillary antra and ethmoid sinuses. Trace mucosal thickening is seen in the left frontal sinus and the sphenoid sinuses. The mastoid air cells are well pneumatized. Calvarium: The skeletal structures are osteopenic. The calvarium appears intact. IMPRESSION: 1. There is no evidence of hemorrhage, mass effect, or acute territorial ischemia noting angiographic phase technique. 2. Unremarkable CT angiogram of the brain. ACT 112: Negative or not required by law. Electronically signed by: Dom Mendoza M.D. 03/04/2024 11:06 AM Neck CTA 03/04/24 10:16 CT ANGIOGRAPHY OF THE NECK WITH CONTRAST CLINICAL HISTORY: neuro deficit, acute stroke suspected COMPARISON STUDY: CT of the neck February 17, 2018. Technique: CT angiography of the carotid and vertebral arteries was obtained using Optiray and 3D reconstruction on an independent workstation. NASCET criteria was utilized. Automated exposure control was utilized for the study. A dose lowering technique was utilized adhering to the principles of ALARA. Findings: Visualized portions of the lung apices are unremarkable. There is no cervical spine fracture. No cervical lymphadenopathy is identified. There is moderate plaque within the proximal bilateral internal carotid arteries. This results in mild stenosis of the proximal right internal carotid artery. Vessel measures 3.2 mm at site of narrowing and 4 mm distally. There is 30% stenosis. There is no significant stenosis of the cervical portion of the left internal carotid artery. The bilateral vertebral arteries are patent. There is no aneurysm or dissection within the neck. There is moderate plaque at the origin of the right subclavian artery without stenosis. IMPRESSION: 1. Moderate atherosclerotic plaque within the proximal bilateral internal carotid arteries. Mild stenosis of the proximal right internal carotid artery. No stenosis within the cervical left internal carotid artery. 2. No dissection or aneurysm within the neck. ACT 112: Negative or not required by law. Electronically signed by: Jamison Kirk M.D. 03/04/2024 10:41 AM Discharge Plan Visit Data Chief Complaint: TIA Symptoms Stated Complaint: EAR PAIN, LOSING VISION, SLURRED SPEECH ED Provider: Chilo Patterson Discharge Problem: Stroke-like symptoms, Anemia, Acute lower GI bleeding, Carotid arterial disease Patient Disposition: Being Evaluated by Hospitalist Forms Stand Alone Forms: My [facility] Prescriptions Prescriptions: No Action vitamin E mixed 400 unit capsule 400 unit PO QAM calcium carbonate-vitamin D2 500-125 mg-unit tablet 1,000 tab PO DAILY cholecalciferol (vitamin D3) 25 mcg (1,000 unit) capsule 25 mcg PO DAILY multivitamin Tablet 1 tab PO QAM atorvastatin 20 mg tablet 20 mg PO HS lisinopril 20 mg tablet 20 mg PO QAM coenzyme Q10 10 mg Capsule 10 mg PO QAM allopurinol 100 mg tablet 100 mg PO QAM mometasone 50 mcg/actuation spray,non-aerosol 2 spray intranasal DAILY PRN (Reason: Allergy Symptoms) vitamin B complex Tablet 1 tab PO QAM cetirizine [Zyrtec] 10 mg Tablet 10 mg PO DAILY PRN (Reason: Allergy Symptoms) glimepiride 4 mg tablet 4 mg PO QAM mesalamine 1,000 mg suppository 1,000 mg VA HS Referrals Referrals: Shorty Gonzales DO [Primary Care Provider] - Discharge Problem: Anemia Qualifiers: Anemia type: unspecified type Qualified Code(s): D64.9 - Anemia, unspecified Carotid arterial disease Qualifiers: Carotid artery disease type: unspecified Laterality: unspecified laterality Q ualified Code(s): I77.9 - Disorder of arteries and arterioles, unspecified
--- NOTE | 2024-03-04 10:40 | CT Scan Report ---
CT head/brain wo con CLINICAL HISTORY: neuro deficit, acute stroke suspected Technique: Contiguous axial CT images of the head were acquired from the base of the skull to the emmy bonny without intravenous contrast administration. Images were viewed in brain, subdural and bone [facility]. Automated dose lowering techniques and/or adjustment according to patient size were utilized for this exam. Comparison: None available at the time of this dictation. Findings: Areas of decreased attenuation are present in the periventricular and subcortical white matter bilate rally consistent with small vessel ischemic disease. Generalized cerebral atrophy with commensurate e nlargement of the ventricles, sulci, and cisterns is also present. There is no acute intracranial hem orrhage or evidence of acute territorial infarction. No shift of the midline structures, mass effect, or extra-axial abnormalities are shown. Atherosclerotic calcifications are present in the intracran ial segments of the internal carotid arteries. Imaged portions of the paranasal sinuses and mastoid air cells are clear. The orbits appear normal. There are no acute fractures of the calvaria or scalp swelling. Impression: No acute intracranial hemorrhage, no evidence of acute territorial infarction or other acute intracra nial disease process. ACT 112: Negative or not required by law. Electronically signed by: Trell Dudley M.D. 03/04/2024 10:38 AM
--- NOTE | 2024-03-04 10:40 | XRay Report ---
XR chest 1V portable CLINICAL HISTORY: neuro deficit, acute stroke suspected TECHNIQUE: Single frontal radiograph of the chest was obtained. Comparison: Comparison is made to chest radiograph 12/23/2018 FINDINGS: No lines and tubes are seen. Calcified aortic knob is seen. The lungs are clear. No evidence of pleur al effusion or pneumothorax. IMPRESSION: No acute chest disease. ACT 112: Negative or not required by law. Electronically signed by: Trell Dudley M.D. 03/04/2024 10:39 AM
--- NOTE | 2024-03-04 10:42 | CT Scan Report ---
CT ANGIOGRAPHY OF THE NECK WITH CONTRAST CLINICAL HISTORY: neuro deficit, acute stroke suspected COMPARISON STUDY: CT of the neck February 17, 2018. Technique: CT angiography of the carotid and vertebral arteries was obtained using Optiray and 3D rec onstruction on an independent workstation. NASCET criteria was utilized. Automated exposure control was utilized for the study. A dose lowering technique was utilized adhering to the principles of ALA RA. Findings: Visualized portions of the lung apices are unremarkable. There is no cervical spine fractur e. No cervical lymphadenopathy is identified. There is moderate plaque within the proximal bilateral internal carotid arteries. This results in mild stenosis of the proximal right internal carotid arter y. Vessel measures 3.2 mm at site of narrowing and 4 mm distally. There is 30% stenosis. There is no significant stenosis of the cervical portion of the left internal carotid artery. The bilateral verte bral arteries are patent. There is no aneurysm or dissection within the neck. There is moderate plaqu e at the origin of the right subclavian artery without stenosis. IMPRESSION: 1. Moderate atherosclerotic plaque within the proximal bilateral internal carotid arteries. Mild sten osis of the proximal right internal carotid artery. No stenosis within the cervical left internal car otid artery. 2. No dissection or aneurysm within the neck. ACT 112: Negative or not required by law. Electronically signed by: Jamsion Kirk M.D. 03/04/2024 10:41 AM
[2024-03-04 10:52] LABS: Hematocrit (blood only) 19.3 % (42.0-52.0); Hemoglobin 5.9 g/dl (14.0-18.0); Mean Corpuscular Hemoglobin 29.6 pg (25.0-34.0); Mean Corpuscular Hgb Conc 30.6 g/dL (32.0-36.0); Mean Platelet Volume 9.5 fL (9.4-12.4); Platelet Count 102 K/uL (130-400); RDW Coefficient of Variation 14.6 % (11.5-14.5); RDW Standard Deviation 50.6 fL (36.4-46.3); Red Blood Count 1.99 M/uL (4.70-6.10)
[2024-03-04] MEDS ORDERED: SODIUM CHLORIDE 0.9% 250 ML IV PRN (10:55)
[2024-03-04 11:00] LABS: INR 1.1 (0.9-1.1); Partial Thromboplastin Ratio 0.9; Partial Thromboplastin Time 23 Seconds (21-31); Prothrombin Time 11.7 Seconds (9.0-12.0)
[2024-03-04 11:02] LABS: Albumin Globulin Ratio 1.5 (0.9-2); Albumin Level 3.3 gm/dl (3.4-5.0); BUN Creatinine Ratio 13.1 (10-20); Bilirubin,Total 0.4 mg/dl (0.2-1.0); Calcium 8.4 mg/dl (8.6-10.3); Creatinine Clr Calc Pharmacy 68.7 ml/min; Est GFR (African American) 87.8 ml/min; Est GFR (Non-African American) 75.8 ml/min; Globulin 2.2 gm/dl (2.5-4.0); Magnesium 1.9 mg/dl (1.7-2.4); Potassium 4.1 mmol/L (3.5-5.1); Total Protein 5.5 gm/dl (6.0-8.3)
[2024-03-04 11:06] LABS: Basophils # (auto) 0.02 K/uL (0.00-0.20); Basophils % (auto) 0.6 %; Eosinophils # (auto) 0.14 K/uL (0.00-0.50); Eosinophils % (auto) 4.4 %; Immature Granulocytes # (auto) 0.01 K/uL (0.01-0.20); Immature Granulocytes % (auto) 0.3 %; Lymphocytes # (auto) 0.64 K/uL (1.20-3.40); Monocytes # (auto) 0.54 K/uL (0.11-0.59); Monocytes % (auto) 16.9 %; Neutrophils # (auto) 1.85 K/uL (1.40-6.50); Neutrophils % (auto) 57.8 %; Polychromasia 1+; Tear Drop Cells 1+
[2024-03-04 11:07] LABS: Troponin I High Sensitivity 3.5 pg/ml (0-20)
--- NOTE | 2024-03-04 11:08 | CT Scan Report ---
CT ANGIOGRAM OF THE BRAIN CLINICAL HISTORY: Neurological deficit. Stroke like symptoms. COMPARISON STUDY: Unenhanced CT of the brain performed concurrently on 03/04/2024. TECHNIQUE: Following the IV administration of 112 cc of Optiray 320, CT angiogram of the brain was pe rformed from the skull base to the vertex. Images are reviewed in the axial, sagittal, and coronal pl anes. 3-D MIPS images are created and assessed. IV contrast was administered without complication. A dose lowering technique was utilized adhering to the principles of ALARA. CT DOSE: 1322.69 mGy.cm FINDINGS: Brain parenchyma: There is age-related involutional change noting mild subcortical and periventricula r microangiopathic disease. There is no evidence of hemorrhage, mass effect, or acute territorial isc hemia noting angiographic phase technique. There is no evidence of enhancing mass lesion on the angio gram phase images. No extra-axial fluid collection is seen. Billingsley-white matter differentiation is pres erved. Ventricles, sulci, and cisterns: Prominent secondary to involutional change. CT angiogram of the brain: There is atherosclerotic calcification of the cavernous carotid and verteb ral arteries. The internal carotid arteries are widely patent, as are the anterior and middle cerebra l arteries. The vertebrobasilar system and posterior cerebral arteries are widely patent. The vertebr al arteries are codominant. There is no aneurysm, high-grade stenosis, or focal vessel cutoff identif ied throughout the intracranial circulation. Dural sinuses: Clear as visualized. Orbits: The bony orbits are intact. The orbital contents are normal as visualized noting bilateral oc ular lens implants. Sinuses and mastoids: There is moderate mucosal thickening within the maxillary antra and ethmoid sin uses. Trace mucosal thickening is seen in the left frontal sinus and the sphenoid sinuses. The mastoi d air cells are well pneumatized. Calvarium: The skeletal structures are osteopenic. The calvarium appears intact. IMPRESSION: 1. There is no evidence of hemorrhage, mass effect, or acute territorial ischemia noting angiographic phase technique. 2. Unremarkable CT angiogram of the brain. ACT 112: Negative or not required by law. Electronically signed by: Dom Mendoza M.D. 03/04/2024 11:06 AM
[2024-03-04] MEDS: SODIUM CHLORIDE 0.9% 500 ML IV ONE (11:58)
--- NOTE | 2024-03-04 12:13 | History & Physical Report ---
Date of Service March 04, 2024 Assessment & Plan (1) Anemia: (2) Rectal bleeding: (3) Radiation proctitis: (4) Prostate cancer: (5) Stroke-like symptoms: Plan 73-year-old male with history of diabetes type 2, hypertension, metastatic prostate cancer, status post prostatectomy, radiation therapy, radiation proctitis presenting with dizziness. Strokelike symptoms, left facial droop, left visual symptoms r/o TIA vs Acute CVA, in the setting of severe anemia CT head: No acute process CT angiogram head and neck: Atherosclerotic plaques of bilateral ICA, mild stenosis RCA Left facial droop not observed on my exam Mild left blurring of vision still present though Patient not on aspirin, but is already on Lipitor Anticoagulation contraindicated at this point in light of patient's Hematochezia,severe anemia Will proceed with the stroke protocol without tPA Obtain brain MRI after 2 units of packed RBCs are given, and patient ensured to be hemodynamically stable Neurology consultation ordered Severe anemia secondary acute blood loss anemia secondary to hematochezia, radiation proctitis Status post EGD and colonoscopy in February 28, 2024 Positive for gastritis, radiation proctitis status post APC, positive for polyps and diverticulosis Mesalamine suppository and iron supplements started as an outpatient Last hemoglobin was 7.5 earlier this month Currently 5.6 2 units of packed RBCs ordered Repeat hemoglobin at 4 PM and 10 PM Check anemia panel Protonix IV twice daily GI consultation Pancytopenia WBC 3000s Hemoglobin 5.6 Platelet count 102,000 Check peripheral smear Diabetes type 2 Hold glimepiride Insulin sliding scale for now Hypertension Hold lisinopril in light of strokelike symptoms, anemia Metastatic prostate cancer Status post prostatectomy in 2008, status post radiation therapy Follows with urology as an outpatient and radiation clinic DVT prophylaxis SCDs for now Full code Disposition Admit to PCU Lives at home with family History of Present Illness Chief Complaint: Persistent hematochezia, left eye blurring of vision Primary Care Provider: Shorty Gonzales DO 73-year-old male with history of diabetes type 2, hypertension, metastatic prostate cancer, status post prostatectomy, radiation therapy, radiation proctitis presenting with persistent hematochezia, left eye blurring of vision. Patient has a history of metastatic prostate cancer status post prostatectomy in 2008 and radiation therapy last session March 2023. For the past 3 months, he has been having progressive hematochezia. He underwent an EGD and colonoscopy February 28, 2024 which showed gastritis, radiation proctitis status post APC, polyps and diverticulosis. He was started on mesalamine suppository and iron supplements. Patient still reports persistent frequent hematochezia 2-3 times per day. Today, patient noted that he was having blurring of vision on the left eye, prompting consult to the ER. At the ER, blood pressure 123/71, pulse rate 86, saturating 100% on room air. At the triage area, patient was noted to have left-sided facial droop and left eye visual disturbance. CT head no acute process CT angiogram head and neck showing plaques at the bilateral ICA, mild stenosis of the right ICA Hemoglobin 5.6. 2 units of packed RBCs ordered In light of patient's severe anemia, suspected GI bleeding secondary to radiation proctitis, stroke alert canceled as patient is not a candidate for tPA and patient's left facial droop and visual symptoms are chronic per ER MD's assessment On exam, patient seen resting in bed, comfortable, not in distress, very pleasant gentleman Denies active shortness of breath, chest pain, palpitations, dizziness No hematochezia so far while in the ER Reports mild blurring of vision, left eye No other neurologic symptoms Allergies Allergy/AdvReac Type Severity Reaction Status Date / Time fentanyl AdvReac Intermediate Vomiting Verified 03/04/24 13:00 hydromorphone [From Dilaudid] AdvReac Intermediate vomiting Verified 03/04/24 13:00 oxycodone AdvReac Mild Nausea Verified 03/04/24 13:00 Home Medications Medication Instructions Recorded Confirmed Type allopurinol 100 mg tablet 100 mg PO QAM 11/18/18 03/04/24 History atorvastatin 20 mg tablet 20 mg PO HS 11/18/18 03/04/24 History coenzyme Q10 10 mg capsule 10 mg PO QAM 11/18/18 03/04/24 History lisinopril 20 mg tablet 20 mg PO QAM 11/18/18 03/04/24 History mometasone 50 mcg/actuation nasal 2 spray intranasal DAILY PRN 11/18/18 03/04/24 History spray Allergy Symptoms multivitamin 1 tab PO QAM 11/18/18 03/04/24 History vitamin B complex 1 tab PO QAM 11/18/18 03/04/24 History cetirizine 10 mg tablet (Zyrtec) 10 mg PO DAILY PRN Allergy Symptoms 11/22/21 03/04/24 History calcium carb-ergocalciferol (vit 1,000 tab PO DAILY 02/13/23 03/04/24 History D2) 500 mg-125 unit tablet cholecalciferol (vitamin D3) 25 25 mcg PO DAILY 02/13/23 03/04/24 History mcg (1,000 unit) capsule vitamin E mixed 400 unit capsule 400 unit PO QAM 02/13/23 03/04/24 History glimepiride 4 mg tablet 4 mg PO QAM 03/04/24 03/04/24 History mesalamine 1,000 mg rectal 1,000 mg [place] HS 03/04/24 03/04/24 History suppository Past Med/Surg History Problem List (Updated 03/04/24 @ 12:11 by New Chin MD) Radiation proctitis Carotid arterial disease (Acute) Acute lower GI bleeding (Acute) Anemia (Acute) Stroke-like symptoms (Acute) Rectal bleeding Prostate cancer (Chronic) Recurrent prostate cancer (Chronic) Incisional hernia Fever Lactic acid acidosis Lactic acidosis (Acute) Rib fracture (Acute) Intractable pain (Acute) Nausea (Acute) DVT prophylaxis Chest pain (Acute) History of colonoscopy Hypertension (Chronic) HTN (hypertension) (Chronic) DM type 2 (diabetes mellitus, type 2) (Chronic) HLD (hyperlipidemia) (Chronic) History of prostate cancer (Chronic) s/p prostatectomy (2008) Gout (Chronic) Medical History Anaplasmosis Thrombocytopenia Chronic- platelets baseline in the 's per chart review dating back to at least 2018 ([facility]). Appears to have been initially noted during active anaplasmosis infection at that time which was treated. Surgical History History of umbilical hernia repair S/P cataract surgery right and left S/P cholecystectomy History of prostate surgery prostatectomy 2009 History of cystoscopy Family History Mother Coronary heart disease Father No problems noted. 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 Last used 03/01/24. 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 Feels Safe at Home: Yes Safety Concerns: Feels Safe At This Time Assistive Devices: None Review of Systems Review of Systems: all noted and negative except for above Physical Exam Physical Exam: General- oriented x 3, not in distress, speaks in sentences with no effort or accessory muscle use Head- atraumatic Eyes- PERRL, EOMI, anicteric ENT- oropharynx clear Neck- supple, no JVD, no adenopathy, no thyromegaly; carotids +2/2, no bruits appreciated Lungs- clear to auscultation bilaterally, no rales/wheezes Heart- normal rate, regular rhythm; no murmur, no gallop, no rub appreciated Abdomen- normal bowel sounds, nondistended, soft, nontender, no masses or hepatosplenomegaly Extremities- no pretibial edema, no calf tenderness; peripheral pulses intact Neuro- alert, oriented x 3; CN 2-12 grossly intact except for mild blurring of vision in the left eye; motor 5/5 bilaterally;sensation 100% on all extremities; no other gross focal neurologic deficits Skin- warm & dry Results & Data Results & Data Vital Signs (Past 12 Hours) Vital Signs Temp Pulse Pulse Resp BP BP Pulse Ox 03/04/24 10:42 86 03/04/24 10:29 86 14 123/71 100 03/04/24 10:01 36.8 C 93 H 18 98/57 L 100 O2 Del Method 03/04/24 10:42 03/04/24 10:29 Room Air 03/04/24 10:01 Room Air all noted and reviewed including below (1) Anemia Anemia type: unspecified type Qualified Code(s): D64.9 - Anemia, unspecified
--- NOTE | 2024-03-04 13:04 | Electrocardiogram Report ---
Test Reason : Blood Pressure : / mmHG Vent. Rate : 089 BPM Atrial Rate : 089 BPM P-R Int : 118 ms QRS Dur : 076 ms QT Int : 408 ms P-R-T Axes : 064 044 032 degrees QTc Int : 496 ms Normal sinus rhythm Nonspecific T wave abnormality Abnormal ECG When compared with ECG of 22-DEC-2018 07:56, Nonspecific T wave abnormality now evident in Lateral leads Confirmed by Chilo Owens ([id number]) on 03/04/2024 1:04:05 PM Referred By: REFERRED SELF Confirmed By:Chilo Owens
--- OUTSIDE RECORDS SUMMARY | 2024-03-04 14:07 | External Medical Summary ---
Author Name Unknown Address Unknown Organization : Laboratory Report Ordering Provider Test Date Status YANNA DURAND 02/28/2024 13:03:09 Final Observation Date Value Abnormality Reference (Units ) Status Glucose Point of Care 02/28/2024 13:03:09 138 Above high normal 70-120 (mg/dL) Final Performing Location
--- OUTSIDE RECORDS SUMMARY | 2024-03-04 14:07 | External Medical Summary | Summary of Care ---
Author Name Unknown Organization [facility] Address [address] [place] [address] Phone [phone] Care Team Providers Care Simulation Engineer Name Role Phone Shorty Gonzales DO Primary Care Provider Reason for Visit * Reason Comments Outpatient Testing Encounter Details Date Type Department Care Team (Late st Contact Info) Description 02/21/2024 1:00 PM EDT Laboratory Laboratory [facility] [address] [place] [phone] [place], [address] [place] [address] Rectal bleeding Allergies Active Allergy Reactions Criticality Noted Date Comments Pollen 05/02/2013 Blevins, maple pollen Ragweed 05/02/2013 Eye sx documented as of this encounter (statuses as of 02/21/2024) Medications Medication Sig Dispensed Refills Start Date End Date Status Multiple Vitamin (MULTI VITAMIN MENS) Tablet Take 1 Tab by mouth daily. Active Cinnamon 500 MG Capsule Take 1 Capsule by mouth in the morning. Active B Complex Vitamins (VITAMIN B COMPLEX) Tablet Take 1 Tablet by mouth in the morning. Active Calcium Carb-Cholecalciferol 500-10 MG-MCG Oral Tablet Take by mouth. Active Indomethacin 25 MG Oral Capsule (Indocin)Indications :Gouty arthropathy Take 1 Capsule by mouth 3 times a day as needed for Pain. 40 Capsule 1 07/19/2023 Active Allopurinol 100 MG Oral Tablet (Zyloprim)Indication s:Acute idiopathic gout of right hand TAKE 1 TABLET BY MOUTH EVERY MORNING 90 Tablet 2 09/16/2023 Active Lisinopril 20 MG Oral Tablet (Prinivil)Indication s:HTN, goal below 130/80 Take 1 Tablet by mouth in the morning. 90 Tablet 2 11/14/2023 Active Atorvastatin Calcium 20 MG Oral Tablet (Lipitor)Indications :Hyperlipidemia TAKE 1 TABLET BY MOUTH EVERY MORNING 90 Tablet 2 01/18/2024 Active Mometasone Furoate 50 MCG/ACT Nasal SuspensionIndication s:Allergic rhinitis, unspecified seasonality, unspecified trigger Administer 2 Sprays into nostril in the morning. 51 g 3 01/26/2024 Active Glimepiride 4 MG Oral Tablet (Amaryl) TAKE 1 TABLET BY MOUTH EVERY MORNING 90 Tablet 2 02/06/2024 Active Vitamin E 100 UNIT Oral Capsule Take 1 Capsule by mouth in the morning. Active Hydrocortisone (Perianal) 2.5 % External CreamIndications:Hem orrhoids, external without complications Administer into the rectum 2 times a day. 28 g 1 02/20/2024 Active documented as of this encounter (statuses as of 02/21/2024) Active Problems Problem Noted Date Diagnosed Date Prostate cancer 04/04/2023 Chronic osteoarthritis 10/08/2021 Type 2 diabetes mellitus with polyneuropathy 03/2019 Type 2 diabetes mellitus wit h hemoglobin A1c goal of less than 7.0% 12/08/2015 Overview: ICD-10 update of inactive term History of prostate cancer 12/08/2015 Actinic keratosis 04/03/2014 Actinic keratosis 01/30/2014 History of basal cell carcinoma 01/30/2014 Hyperlipidemia 05/02/2013 HTN, goal below 140/90 05/02/2013 documented as of this encounter (statuses as of 02/21/2024) Resolved Problems Problem Noted Date Diagnosed Date Resolved Date Benign paroxysmal vertigo 03/03/2016 Recurrent nevus of back 01/30/201411/2018 Pre-diabetes 05/02/2013 12/08/2015 documented as of this encounter (statuses as of 02/21/2024) Immunizations Name Administration Dates Next Due COVID-19 mRNA, LNP-s, No Pre serve, 2-Dose Series (ZoomForth) 01/30/2022,06/03/2021,10/28/2020,10/07 Covid-19, Mrna, Lnp-s, Pf, B ivalent, 30 Mcg, IM, 12 yrs and above (Pfizer) 05/20/2022 Pneumococcal Conjugate Vacc, 13 Valent (Prevnar) 05/19/2017 Pneumococcal Conjugate Vacci ne, 20-valent ([id number]) 09/21/2022 Pneumococcal Polysaccharide PPV23 (Pneumovax) 02/26/2016 Seasonal Influenza Virus Vac cine, Unspecified Formulation 06/06/2021 Seasonal Influenza, PF, 6 M & above, IM , (FluLaval or Fluzone) 06/19/2018,06/07/2017 Seasonal Influenza, Quadriva lent Hd, 65+ Yrs 06/05/2022 Seasonal Influenza, Quadriva lent, No Preserve, IM 05/31/2020,06/01/2016,06/03/2015 Seasonal Influenza, Split, I IV3, With Preserve, Inj 05/27/2014,05/02/2013,06/25/2012,06/30,08/22/2006 Seasonal Influenza, Trivalen t, Adjuvanted, 65+ yrs 05/28/2020,07/03/2019 TD, Preservative Free 12/07/2016 TDAP (age 10 and older)(Boostrix) 08/22/2006 Varicella Zoster Vaccine (Adult) 07/05/2012 Zoster Vaccine Recombinant (Shingrix) 06/02/2019 ,03/17/2019 documented as of this encounter Social History Tobacco Use Types Packs/Day Years Used Date Smoking Tobacco: Never Smokeless Tobacco: Never Alcohol Use Standard Drinks/Week Comments Yes 0 (1 standard drink = 0.6 oz pur e alcohol) 3-4 drinks/week PHQ-2 Answer Date Recorded PHQ Adult Total Score 0 10/27/2021 Hunger Vital Sign Answer Date Recorded Within the past 12 months, y ou worried that your food would run out before you got the money to buy more. Never true 02/19/20 21 Within the past 12 months, t he food you bought just didn't last and you didn't have money to get more. Never true 02/18/2021 Utilities Answer Date Recorded Do you have trouble paying y our heating, water, or electric bill? (Adult - for ages 18 years and over) Not on file 02/06/2024 Is your family able to pay t he heat, water, or electric bill? (Household - for ages 0-17 years) Not on file 02/06/2024 Does your family have access to good internet? (Household - for ages 0-17 years) Not on file 02/06/2024 Social Connections Answer Date Recorded How often do you feel lonely or isolated from those around you? (Adult - for ages 18 years and over) Not on file 02/06/2024 Sex and Gender Information Value Date Recorded Sex Assigned at Not on file Gender Identity Not on file Sexual Orientation Not on file Job Start Date Occupation Industry Not on file Not on file Not on file documented as of this encounter Plan of Treatment Upcoming Encounters Date Type Department Care Team (Latest Contact Info) Description 02/28/2024 1:15 PM EDT Hospital Encounter ENDO [facility], Endoscopy Room [facility] [address] [place] [phone] Alicia Hoover, DO [address] [place] [address] 02/28/2024 1:15 PM EDT - 02/28/2024 1:45 PM EDT Surgery ENDO [facility], Endoscopy Room [facility] [address] [place] [phone] Alicia Hoover, DO [address] [place] [address] COLONOSCOPY FLEXIBLE PROXIMAL DIAGNOSTIC 03/27/2024 3:40 PM EDT Office Visit [facility] [place] [address] [place] [address] Shorty Gonzales, DO [address] [place] [id number] 06/05/2024 3:00 PM EDT Office Visit [facility] [place] [address] [place] [address] Shorty Gonzales, DO [address] [place] [id number] 02/25/2025 11:15 AM EDT Office Visit Dermatology [facility] [place] [address] [facility] [place] [address] Cristian Banks MD [address] [facility] [place], [place] [address] Pending Results Name Type Priority Associated Diagnoses Date /Time CBC Lab Routine Rectal bleeding 02/21/2024 12:55 PM EDT Scheduled Procedures Name Priority Associated Diagnoses Date/Ti me COLONOSCOPY FLEXIBLE PROXIMAL DIAGNOSTIC Recall History of colon polyps Hemorrhage of rectum and anus 02/28/2024 1:15 PM EDT Health Maintenance Due Date Last Done Comments Cologuard 1996 Fecal Occult Blood Test 1996 Sigmoidoscopy 1996 Depression Screening 10/27/2022 10/27/2021 Diabetic Foot Exam 09/21/2023 09/21/2022, 0 02/19/2021, 01/31/2020, Additional history exists COVID-19 Vaccine (2022- season) 2023 05/28/2023, 05/20/2022, 01/30/2022, Additional history exists Influenza Vaccine (FLU shot) (#1) 2024 05/28/2023, 06/05/2022, 06/06/2021, Additional history exists HbA1c 05/16/2024 11/14/2023, 08/22, 10/25/2021, Additional history exists Albumin/Creatinine Ratio 11/13/2024 024, 10/25/2021, 02/06/2020, Additional history exists Diabetic Eye Exam 12/11/2024 12/12/2023, , 12/05/2022, Additional history exists Colonoscopy 02/11/2025 02/12/2020, 02/12/2020 Colorectal Cancer Screening 02/11/2025 GFR 02/18/2025 02/19/2024, 10/20, 04/04/2023, Additional history exists DTaP,Tdap,and Td Vaccines (3 - Td or Tdap) 12/07/2026 12/07/2016, 08/22/2006 Lipid Panel 11/13/2028 11/14/2023, 08/22, 03/17/2021, Additional history exists Zoster Vaccines Completed 06/02/2019, 02/19, 07/05/2012 RETIRED - COLONOSCOPY-EVERY 5 YRS AGES 18-100 Discontinued 02/12/2020, 02/12/2020 Pneumococcal Vaccine: 65+ Years Completed 09/21/2022, 05/19/2017, 02/26/2016 HPV (Gardasil) Vaccine Aged Out No lo nger eligible based on patient's age to complete this topic Hepatitis B Vaccine Aged Out No longe r eligible based on patient's age to complete this topic MENINGOCOCCAL (MENACTRA/MENVEO) Aged Out No longer eligible based on patient's age to complete this topic documented as of this encounter Medical Devices Not on filedocumented as of this encounter Visit Diagnoses Diagnosis Rectal bleeding Hemorrhage of rectum and anus History of colon polyps Personal history of colonic polyps Hemorrhage of rectum and anus documented in this encounter Care Teams Simulation Engineer Relationship Specialty Start Date End Date Shorty Gonzales DO [address] [place] [address] PCP - General Family Medicine 05/02/13 documented as of this encounter
--- OUTSIDE RECORDS SUMMARY | 2024-03-04 14:07 | External Medical Summary | Summary of Care ---
Author Name Unknown Organization [facility] Address [address] [place] [address] Phone [phone] Care Team Providers Care Member Of Congress Name Role Phone Shorty Gonzales DO Primary Care Provider [phone] Reason for Visit * Auth/Cert Specialty Diagnoses / Procedures Referred By Contac t Referred To Contact Diagnoses History of colon polyps Hemorrhage of rectum and anus History of colon polyps [Z86.010] Hemorrhage of rectum and anus [K62.5] Procedures COLONOSCOPY, DIAGNOSTIC (RECTUM) COLONOSCOPY FLEXIBLE PROXIMAL DIAGNOSTIC Alicia Hoover DO [address] [place] [id number] [facility] [address] [place] [phone] Referral ID Status Reason Start Date Expiration Date Visits Re quested Visits Authorized [id number] Encounter Details Date Type Department Care Team (Latest Contact Info) Description 02/28/2024 12:22 PM EDT - 02/28/2024 2:46 PM EDT Hospital Encounter [facility], Endoscopy [facility] [address] [place] [id number] Alicia Hoover DO [address] [place] [id number] Various: GICOLON,UGI Discharge Disposition: Home - Self Care Allergies Active Allergy Reactions Criticality Noted Date Comments Pollen 05/02/2013 [place], maple pollen Ragweed 05/02/2013 Eye sx documented as of this encounter (statuses as of 02/29/2024) Medications Medication Sig Dispensed Refills Start Date End Date Status Multiple Vitamin (MULTI VITAMIN MENS) Tablet Take 1 Tab by mouth daily. Active Cinnamon 500 MG Capsule Take 1 Capsule by mouth in the morning. Active B Complex Vitamins (VITAMIN B COMPLEX) Tablet Take 1 Tablet by mouth in the morning. Active Calcium Carb-Cholecalcife rol 500-10 MG-MCG Oral Tablet Take by mouth. Active Indomethacin 25 MG Oral Capsule (Indocin)Indicati ons:Gouty arthropathy Take 1 Capsule by mouth 3 times a day as needed for Pain. 40 Capsule 1 3 Active Additional Information Patient not taking.Reported on 02/28/2024 Allopurinol 100 MG Oral Tablet (Zyloprim)Indicat ions:Acute idiopathic gout of right hand TAKE 1 TABLET BY MOUTH EVERY MORNING 90 Tablet 2 4 Active Lisinopril 20 MG Oral Tablet (Prinivil)Indicat ions:HTN, goal below 130/80 Take 1 Tablet by mouth in the morning. 90 Tablet 2 4 Active Atorvastatin Calcium 20 MG Oral Tablet (Lipitor)Indicati ons:Hyperlipidemi a TAKE 1 TABLET BY MOUTH EVERY MORNING 90 Tablet 2 4 Active Additional Information Patient taking differently:20 mg Oral Daily(AM), Takes at night, Reported on 02/23/2024 Mometasone Furoate 50 MCG/ACT Nasal SuspensionIndicat ions:Allergic rhinitis, unspecified seasonality, unspecified trigger Administer 2 Sprays into nostril in the morning. 51 g 3 4 Active Glimepiride 4 MG Oral Tablet (Amaryl) TAKE 1 TABLET BY MOUTH EVERY MORNING 90 Tablet 2 4 Active Vitamin E 100 UNIT Oral Capsule Take 1 Capsule by mouth in the morning. Active Hydrocortisone (Perianal) 2.5 % External CreamIndications: Hemorrhoids, external without complications Administer into the rectum 2 times a day. 28 g 1 4 Active Mesalamine 1000 MG Rectal Suppository (Canasa) Administer 1 Suppository into the rectum at bedtime. 90 Suppository 4 Active Ferrous Sulfate 325 (65 Fe) MG Oral Tablet (Feosol) Take 1 Tablet by mouth in the morning and 1 Tablet before bedtime. 180 Tablet 4 Active Ferrous Sulfate 325 (65 Fe) MG Oral Tablet (Feosol) Take 1 Tablet by mouth in the morning and 1 Tablet before bedtime. 180 Tablet 4 02/28/20 24 Discontinued Mesalamine 1000 MG Rectal Suppository (Canasa) Administer 1 Suppository into the rectum at bedtime. 90 Suppository 4 02/28/20 24 Discontinued documented as of this encounter (statuses as of 02/29/2024) Active Problems Problem Noted Date Diagnosed Date [...] as of this encounter (statuses as of 02/29/2024) Resolved Problems Problem Noted Date Diagnosed Date Resolved Date Benign paroxysmal vertigo 03/03/2016 Recurrent nevus of back 01/30/201411/2018 Pre-diabetes 05/02/2013 12/08/2015 documented as of this encounter (statuses as of 02/29/2024) Immunizations Name Administration Dates Next Due COVID-19 mRNA, LNP-s, No Pre serve, 2-Dose Series ([employer]) 01/30/2022,06/03/2021,10/28/2020,10/07 Covid-19, Mrna, Lnp-s, Pf, B ivalent, 30 Mcg, IM, 12 yrs and above ([employer]) 05/20/2022 Pneumococcal Conjugate Vacc, 13 Valent (Prevnar) 05/19/2017 Pneumococcal Conjugate Vacci ne, 20-valent ([id number]) 09/21/2022 Pneumococcal Polysaccharide PPV23 (Pneumovax) 02/26/2016 Seasonal [...] on file documented as of this encounter Last Filed Vital Signs Vital Sign Reading Time Taken Comments Blood Pressure 109/51 02/28/2024 2:26 PM EDT Pulse 78 02/28/2024 2:26 PM EDT Temperature 37.2 C (99 F) 02/28/2024 2:26 PM EDT Respiratory Rate 16 02/28/2024 2:26 PM EDT Oxygen Saturation 100% 02/28/2024 2:26 PM EDT Inhaled Oxygen Concentration - - Weight 80.7 kg (178 lb) 02/23/2024 9:05 AM EDT Height 170.2 cm (5' 7") 02/23/2024 9:05 AM EDT Body Mass Index 27.88 02/23/2024 9:05 AM EDT documented in this encounter H&P Notes * Alicia Hoover, DO - 02/28/2024 1:03 PM EDT Endoscopy Pre-Procedure Assessment Name: Vincenzo Hernández Date: 02/28/2024 Time: 1:03 PM Procedure(s): Colonoscopy; with Indication(s) of evaluation of GI blood loss or iron- deficiency anemia Upper GI Endoscopy; with Indication(s) of evaluation and management of GI bleeding and/or iron-deficiency anemia Endoscopy Pre-Procedure Assessment: Prior to the procedure, the patient is identified. The patient's history, medications and allergieshave been reviewed. The patient is competent. The risks and benefits of the proposed procedure and the planned sedation have been discussed with the patient. All questions have been answered and informed consent for the procedure has been obtained. Prior to Admission medications Medication Sig Last Dose Discont. Vitamin E 100 UNIT Oral Capsule Take 1 Capsule by mouth in the morning. 02/27/2024 Glimepiride 4 MG Oral Tablet (Amaryl) TAKE 1 TABLET BY MOUTH EVERY MORNING 02/27/2024 Mometasone Furoate 50 MCG/ACT Nasal Suspension Administer 2 Sprays into nostril in the morning. 02/27/2024 Atorvastatin Calcium 20 MG Oral Tablet (Lipitor) TAKE 1 TABLET BY MOUTH EVERY MORNING Patient taking differently: Take 1 Tablet by mouth in the morning. Takes at night . 02/27/2024 Lisinopril 20 MG Oral Tablet (Prinivil) Take 1 Tablet by mouth in the morning. Past Week Allopurinol 100 MG Oral Tablet (Zyloprim) TAKE 1 TABLET BY MOUTH EVERY MORNING 02/27/2024 Calcium Carb-Cholecalciferol 500-10 MG-MCG Oral Tablet Take by mouth. 02/27/2024 B Complex Vitamins (VITAMIN B COMPLEX) Tablet Take 1 Tablet by mouth in the morning. 02/27/2024 Cinnamon 500 MG Capsule Take 1 Capsule by mouth in the morning. Past Week Multiple Vitamin (MULTI VITAMIN MENS) Tablet Take 1 Tab by mouth daily. 02/27/2024 Hydrocortisone (Perianal) 2.5 % External Cream Administer into the rectum 2 times a day. Indomethacin 25 MG Oral Capsule (Indocin) Take 1 Capsule by mouth 3 times a day as needed for Pain. Patient not taking: Reported on 02/28/2024 Not Taking Review of patient's allergies indicates: Allergen Reactions Pollen [place], maple pollen Ragweed Eye sx Ht 1.702 m (5' 7") | Wt 80.7 kg (178 lb) | BMI 27.88 kg/m | BSA 1.95 m Physical Exam: Mental Status Examination: alert and oriented. Airway Examination: normal oropharyngeal airway and neck mobility. Respiratory Examination: clear to auscultation. CV Examination: regular rate and rhythm. ASA Grade: III - A patient with severe systemic disease. Abdomen: soft Latest Reference Range & Units 02/19/24 10:42 02/21/24 12:55 Sodium 135 - 146 mmol/L 139 Potassium 3.5 - 5.1 mmol/L 4.0 Chloride 98 - 107 mmol/L 104 CO2 22 - 32 mmol/L 22 BUN 6 - 20 mg/dL 14 Creatinine 0.6 - 1.2 mg/dL 1.0 Estimated Glomerular Filtration Rate >=60 mL/min 80 Anion Gap 7 - 15 mmol/L 13 Glucose 70 - 120 mg/dL 254 (H) Calcium 8.4 - 10.2 mg/dL 9.1 Folic Acid >4.5 ng/mL >20.0 TSH 0.27 - 4.20 uIU/mL 1.10 CBC Rpt ! WBC 4.00 - 10.80 K/uL 4.44 5.47 RBC 4.50 - 5.25 M/uL 2.50 2.45 HGB 14.0 - 16.8 g/dL 7.9 (L) 7.5 (L) HCT 40.0 - 48.4 % 25.0 (L) 23.9 (L) MCV 82.0 - 99.5 fL 100.0 97.6 MCH 27.0 - 34.0 pg 31.6 30.6 MCHC 32.0 - 36.0 g/dL 31.6 31.4 RDW 11.5 - 15.5 % 13.6 14.2 PLT 140 - 400 K/uL 120 (L) 119 (L) MPV 6.6 - 11.1 fL 10.6 10.0 ANEMIA CBC Rpt ! Absolute Neutrophils 1.80 - 7.70 K/uL 2.50 Absolute Lymphocytes 1.00 - 4.80 K/ul 1.18 Absolute Monocytes 0.00 - 1.10 K/uL 0.50 Absolute Eosinophils 0.00 - 0.70 K/uL 0.20 Absolute Basophils 0.00 - 0.20 K/uL 0.05 IRON SCREEN, INCLUDING TIBC Rpt Iron 45 - 176 ug/dL 57 Iron Binding Capacity 250 - 425 ug/dL 324 Transferrin Saturation Percent 15 - 55 % 18 Ferritin 30 - 400 ng/mL 86 Vitamin B12 232 - 1,245 pg/mL 537 Immature Reticuloctye Fraction 2.5 - 20.6 % 21.6 (H) Reticulocyte Hemoglobin 29.7 - 37.4 pg 31.7 Absolute Reticulocyte 31.3 - 100.1 K/uL 124.2 (H) Reticulocyte Percent 0.80 - 1.90 % 4.87 (H) (H): Data is abnormally high !: Data is abnormal (L): Data is abnormally low Rpt: View report in Results Review for more information This patient has undergone a preprocedural evaluation. A determination has been made to proceed with the planned procedure under [facility] procedural guidelines and the [facility] Non-Emergent, Elective Medical Services and Treatment Recommendations (published on 11-26-19). The community and hospital prevalence of COVID-19 has been discussed as well as this patient's specific risks associated with SARS-CoV-19 infection. Based upon the clinical acuity and patient-specific care considerations, this procedure is deemed a Tier II - Intermediate acuity treatment or service with either progression or the threat of progressive disease related to the delay in treatment. Not providing the service has the potential for increasing morbidity or mortality. After reviewing the risks and benefits, the patient is deemed in satisfactory condition to undergo the procedure. The anesthesia plan is to use general anesthesia. We have discussed the risks and benefits of upper endoscopy to include bleeding, infection, perforation, discomfort, aspiration and need for follow-up studies. I have discussed the risks of colonoscopy to include bleeding, infection, perforation, pain, missedpolyps, and need for follow-up studies. Alicia Hoover DO 02/28/2024 documented in this encounter Procedure Notes * Shorty Gonzales DO - 02/28/2024 1:03 PM EDTAssociated Order(s): UPPER GI ENDOSCOPY [facility] Patient Name: Vincenzo Hernández Procedure Date: 02/28/2024 1:03 PM Date of : 1950 Admit Type: Outpatient Note Status: Finalized Date of : 1950 Admit Type: Outpatient Age: 73 Room: [facility] Gender: Male Note Status: Finalized Procedure: Upper GI endoscopy Indications: Hematochezia Providers: Alicia Hoover DO (Doctor) Referring MD: Shorty Gonzales DO (Referring MD) Medicines: General Anesthesia Complications: No immediate complications. Estimated blood loss: Minimal. Procedure: Pre-Anesthesia Assessment: - Prior to the procedure, a History and Physical was performed, and patient medications, allergies and sensitivities were reviewed. The patient's tolerance of previous anesthesia was reviewed. - The risks and benefits of the procedure and the sedation options and risks were discussed with the patient. All questions were answered and informed consent was obtained. - Patient identification and proposed procedure were verified prior to the procedure by the physician, the nurse and the table games manager. The procedure was verified in the procedure room. - Pre-procedure physical examination revealed no contraindications to sedation. - ASA Grade Assessment: III - A patient with severe systemic disease. - After reviewing the risks and benefits, the patient was deemed in satisfactory condition to undergo the procedure. - The anesthesia plan was to use general anesthesia. - Immediately prior to administration of medications, the patient was re- assessed for adequacy to receive sedatives. - The heart rate, respiratory rate, oxygen saturations, blood pressure, adequacy of pulmonary ventilation, and response to care were monitored throughout the procedure. - The physical status of the patient was re-assessed after the procedure. After obtaining informed consent, the endoscope was passed under direct vision. All instruments were visually inspected immediately before and after removal from the patient to ensure they are fully intact. Throughout the procedure, the patient's blood pressure, pulse, and oxygen saturations were monitored continuously. The PCF-H180AL(colonscope)[id number] was introduced through the mouth, and advanced to the third part of duodenum. The upper GI endoscopy was accomplished without difficulty. The patient tolerated the procedure well. Findings & Specimens: The examined esophagus was normal. The Z-line was regular and was found 37 cm from the incisors. Diffuse mild inflammation characterized by erythema and granularity was found in the entire examined stomach. Biopsies were taken with a cold forceps for histology. The pathology specimen was placed into Bottle Number 1. Estimated blood loss was minimal. The examined duodenum was normal. Impression: - Normal esophagus. - Z-line regular, 37 cm from the incisors. - Gastritis. Biopsied. - Normal examined duodenum. Recommendation: - Perform a colonoscopy today. Alicia Hoover DO 02/28/2024 2:20:13 PM This report has been signed electronically. * Shorty Gonzales DO - 02/28/2024 1:01 PM EDTAssociated Order(s): COLONOSCOPY [facility] Patient Name: Vincenzo Hernández Procedure Date: 02/28/2024 1:01 PM Date of : 1950 Admit Type: Outpatient Note Status: Finalized Date of : 1950 Admit Type: Outpatient Age: 73 Room: [facility] Gender: Male Note Status: Finalized Procedure: Colonoscopy Indications: Hematochezia Providers: Alicia Hoover DO (Doctor) Referring MD: Shorty Gonzales DO (Referring MD) Medicines: General Anesthesia Complications: No immediate complications. Estimated blood loss: Minimal. Procedure: Pre-Anesthesia Assessment: - Prior to the procedure, a History and Physical was performed, and patient medications, allergies and sensitivities were reviewed. The patient's tolerance of previous anesthesia was reviewed. - The risks and benefits of the procedure and the sedation options and risks were discussed with the patient. All questions were answered and informed consent was obtained. - Patient identification and proposed procedure were verified prior to the procedure by the physician, the nurse and the table games manager. The procedure was verified in the procedure room. - Pre-procedure physical examination revealed no contraindications to sedation. - ASA Grade Assessment: III - A patient with severe systemic disease. - After reviewing the risks and benefits, the patient was deemed in satisfactory condition to undergo the procedure. - The anesthesia plan was to use general anesthesia. - Immediately prior to administration of medications, the patient was re- assessed for adequacy to receive sedatives. - The heart rate, respiratory rate, oxygen saturations, blood pressure, adequacy of pulmonary ventilation, and response to care were monitored throughout the procedure. - The physical status of the patient was re-assessed after the procedure. After I obtained informed consent, the scope was passed under direct vision. All instruments were visually inspected immediately before and after removal from the patient to ensure they are fully intact. Throughout the procedure, the patient's blood pressure, pulse, and oxygen saturations were monitored continuously. The PCF-H180AL(colonscope)[id number] was introduced through the anus and advanced to the terminal ileum. The patient tolerated the procedure well. The quality of the bowel preparation was fair. The colonoscopy was technically difficult and complex due to significant looping. Successful completion of the procedure was aided by withdrawing and reinserting the scope. Findings & Specimens: The digital rectal exam findings include surgically absent prostate. Pertinent negatives include normal sphincter tone. The terminal ileum appeared normal. Two sessile polyps were found in the ascending colon. The polyps were 4 to 6 mm in size. These polyps were removed with a cold snare. Resection was complete, but the polyp tissue was not retrieved. Multiple medium-mouthed diverticula were found in the sigmoid colon and descending colon. A 5 mm polyp was found in the transverse colon. The polyp was sessile. The polyp was removed with a cold snare. Resection was complete, but the polyp tissue was not retrieved. A localized area of mildly nodular mucosa was found in the anterior rectum. Biopsies were taken with a cold forceps for histology. The pathology specimen was placed into Bottle Number 2. Estimated blood loss was minimal. Multiple medium-sized localized angioectasias with bleeding on contact were found in the anerior rectum. Coagulation for hemostasis using argon plasma at 1 liter/minute and 20 moon was successful. Estimated blood loss was minimal. The exam was otherwise without abnormality. Impression: - Preparation of the colon was fair. - The examined portion of the ileum was normal. - Two 4 to 6 mm polyps in the ascending colon, removed with a cold snare. Complete resection. Polyp tissue not retrieved. - Moderate diverticulosis in the sigmoid colon and in the descending colon. - One 5 mm polyp in the transverse colon, removed with a cold snare. Complete resection. Polyp tissue not retrieved. - Nodular mucosa in the rectum. Biopsied. 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 Treated with argon plasma coagulation (APC). - The examination was otherwise normal. Recommendation: - The patient will be observed post-procedure, until all discharge criteria are met. - Advance diet as tolerated today. - Await pathology results. - Repeat colonoscopy in 1 year because the bowel preparation was suboptimal. - Try Canasa 1000 mg suppository 1 per rectum QHS for 8 weeks. - If significant bleeding persists, repeat APC can be arranged. Alicia Hoover DO 02/28/2024 2:18:46 PM This report has been signed electronically. documented in this encounter Nursing Notes * Quiana Reece RN - 02/28/2024 2:30 PM EDT Patient is alert, pain free, passing flatus and tolerating po fluids prior to discharge. Patient has been visited by Dr. Alicia Hoover. Patient has received and demonstrates understanding of discharge instructions. Patient is transported via w/c to private auto accompanied by endo staff. * Sudhir Obrien RN - 02/28/2024 2:11 PM EDT Multiple polyps removed in ascending colon, unable to retreive due to poor prep, Dr Hoover aware. * Sudhir Obrien RN - 02/28/2024 2:10 PM EDT See anesthesia record for medication administered during procedure. Sudhir Obrien RN Specimen(s) and location(s) verified with physician post procedure 2:10 PM Sudhir Obrien RN Pre cleaning of scope at the bedside started by surgery technician. Mid abdominal pressure given per Dr. Alicia Hoover to assist with scope advancement. Pt tolerated well * Radha Diaz RN - 02/28/2024 1:06 PM EDT Pt prepped and ready for anesthesia to assess. Call villagomez in reach. documented in this encounter Plan of Treatment Upcoming Encounters Date Type Department Care Team (Late st Contact Info) Description 03/27/2024 3:40 PM EDT Office Visit [facility] [address] [place] [id number] Shorty Gonzales, DO [address] [place], [place] [address] 06/05/2024 3:00 PM EDT Office Visit [facility] [address] [place] [address] Shorty Gonzales, DO [address] [place] [id number] 02/25/2025 11:15 AM EDT Office Visit [facility] [address] [place] [address] Cristian Bnaks MD [address] [facility] [place] [id number] Pending Results Name Type Priority Associated Diagnoses Date /Time SURGICAL PATHOLOGY Pathology Routine History of colon polyps Hemorrhage of rectum and anus 02/28/2024 2:11 PM EDT Scheduled Orders Name Type Priority Associated Diagnoses Order Schedule GLUCOSE METER, POINT OF CARE (COMMUNICATION ORDER) Point of Care Testing Routine As Needed until discontinued starting 02/28/2024 SURGICAL PATHOLOGY Pathology Routine History of colon polyps Hemorrhage of rectum and anus Release Upon Ordering for 1 Occurrences starting 02/28/2024, 1 completed Health Maintenance Due Date Last Done Comments Cologuard 1996 Fecal Occult Blood Test 1996 Sigmoidoscopy 1996 Depression Screening 10/27/2022 10/27/2021 Diabetic Foot Exam 09/21/2023 09/21/2022, 0 02/19/2021, 01/31/2020, Additional history exists COVID-19 Vaccine ( season) 2023 05/28/2023, 05/20/2022, 01/30/2022, Additional history exists Influenza Vaccine (FLU shot) (#1) 2024 05/28/2023, 06/05/2022, 06/06/2021, Additional history exists HbA1c 05/16/2024 11/14/2023, 08/22, 10/25/2021, Additional history exists Albumin/Creatinine Ratio 11/13/2024 024, 10/25/2021, 02/06/2020, Additional history exists Diabetic Eye Exam 12/11/2024 12/12/2023, , 12/05/2022, Additional history exists GFR 02/18/2025 02/19/2024, 10/20, 04/04/2023, Additional history exists DTaP,Tdap,and Td Vaccines (3 - Td or Tdap) 12/07/2026 12/07/2016, 08/22/2006 Lipid Panel 11/13/2028 11/14/2023, 08/22, 03/17/2021, Additional history exists Colonoscopy 02/27/2029 02/28/2024, 01/20, 02/12/2020 Colorectal Cancer Screening 02/27/2029 Zoster Vaccines Completed 06/02/2019, 02/19, 07/05/2012 Pneumococcal Vaccine: 65+ Years Completed 09/21/2022, 05/19/2017, 02/26/2016 RETIRED - COLONOSCOPY-EVERY 5 YRS AGES 18-100 Discontinued 02/28/2024, 02/12/2020, 02/12/2020 HPV (Gardasil) Vaccine Aged Out No lo nger eligible based on patient's age to complete this topic Hepatitis B Vaccine Aged Out No longe r eligible based on patient's age to complete this topic MENINGOCOCCAL (MENACTRA/MENVEO) Aged Out No longer eligible based on patient's age to complete this topic documented as of this encounter Medical Devices Not on filedocumented as of this encounter Procedures Procedure Name Priority Date/Time Associated Diagnosis Comments UPPER GI ENDOSCOPY 02/28/2024 1: 03 PM EDT GLUCOSE METER, POINT OF CARE ARJUN 02/28/2024 1:03 PM EDT COLONOSCOPY 02/28/2024 1:01 PM EDT documented in this encounter Results * UPPER GI ENDOSCOPY (02/28/2024 1:03 PM EDT) 02/28/2024 1:03 PM EDT Narrative Procedure Note Shorty Gonzales DO - 02/28/2024 1:03 PM EDT [facility] Patient Name: Vincenzo Hernández Procedure Date: 02/28/2024 1:03 PM Date of : 1950 Admit Type: Outpatient Note Status:Finalized Date of : 1950 Admit Type: Outpatient Age: 73 Room: [facility] Gender: Male Note Status: Finalized Procedure: Upper GI endoscopy Indications: Hematochezia Providers: Alicia Hoover DO (Doctor) Referring MD: Shorty Gonzales DO (Referring MD) Medicines: General Anesthesia Complications: No immediate complications. Estimated blood loss:Minimal. Procedure: Pre-Anesthesia Assessment: - Prior to the procedure, a History and Physicalwas performed, and patient medications, allergies and sensitivities werereviewed. The patient's tolerance of previous anesthesia was reviewed. - The risks and benefits of the procedure and thesedation options and risks were discussed with the patient. All questions wereanswered and informed consent was obtained. - Patient identification and proposed procedurewere verified prior to the procedure by the physician, the nurse and the table games manager.The procedure was verified in the procedure room. - Pre-procedure physical examination revealed nocontraindications to sedation. - ASA Grade Assessment: III - A patient with severesystemic disease. - After reviewing the risks and benefits, thepatient was deemed in satisfactory condition to undergo the procedure. - The anesthesia plan was to use generalanesthesia. - Immediately prior to administration ofmedications, the patient was re-assessed for adequacy to receive sedatives. - The heart rate, respiratory rate, oxygensaturations, blood pressure, adequacy of pulmonary ventilation, and response to care weremonitored throughout the procedure. - The physical status of the patient wasre-assessed after the procedure. After obtaining informed consent, the endoscope waspassed under direct vision. All instruments were visually inspected immediatelybefore and after removal from the patient to ensure they are fully intact. Throughout the procedure, the patient's bloodpressure, pulse, and oxygen saturations were monitored continuously. ThePCF-H180AL(colonscope)[id number] was introduced through the mouth, and advanced to the third part ofduodenum. The upper GI endoscopy was accomplished without difficulty. The patienttolerated the procedure well. Findings & Specimens: The examined esophagus was normal. The Z-line was regular and was found 37 cm from the incisors. Diffuse mild inflammation characterized by erythema and granularitywas found in the entire examined stomach. Biopsies were taken with a cold forceps for histology. Thepathology specimen was placed into Bottle Number 1. Estimated blood loss was minimal. The examined duodenum was normal. Impression: - Normal esophagus. - Z-line regular, 37 cm from the incisors. - Gastritis. Biopsied. - Normal examined duodenum. Recommendation: - Perform a colonoscopy today. Alicia Hoover DO 02/28/2024 2:20:13 PM This report has been signed electronically. Shorty Ascencio [facility] DO GASTRO UPPER * (ABNORMAL) GLUCOSE METER, POINT OF CARE (02/28/2024 1:03 PM EDT) Glucose Meter 138(H) 70 - 120 mg/dL 02/28/2024 1:10 PM EDT LAB[facility]ATORY [place] 57-00 Blood Whole blood specimen / Unknown 02/28/2024 1:03 PM EDT 02/28/2024 1:10 PM EDT Alicia Hoover DO LAB POINT OF CARE TE ST DOCKED DEVICE UNSOLICITED RESULTS LAB[facility]AT[facility] [address] [facility] [place] [address] * COLONOSCOPY (02/28/2024 1:01 PM EDT) 02/28/2024 1:01 PM EDT Narrative Procedure Note Shorty Gonzales DO - 02/28/2024 1:01 PM EDT [facility] Patient Name: Vincenzo Hernández Procedure Date: 02/28/2024 1:01 PM Date of : 1950 Admit Type: Outpatient Note Status:Finalized Date of : 1950 Admit Type: Outpatient Age: 73 Room: Advanced Endo Gender: Male Note Status: Finalized Procedure: Colonoscopy Indications: Hematochezia Providers: Alicia Hoover DO (Doctor) Referring MD: Shorty Gonzales DO (Referring MD) Medicines: General Anesthesia Complications: No immediate complications. Estimated blood loss:Minimal. Procedure: Pre-Anesthesia Assessment: - Prior to the procedure, a History and Physicalwas performed, and patient medications, allergies and sensitivities werereviewed. The patient's tolerance of previous anesthesia was reviewed. - The risks and benefits of the procedure and thesedation options and risks were discussed with the patient. All questions wereanswered and informed consent was obtained. - Patient identification and proposed procedurewere verified prior to the procedure by the physician, the nurse and the table games manager.The procedure was verified in the procedure room. - Pre-procedure physical examination revealed nocontraindications to sedation. - ASA Grade Assessment: III - A patient with severesystemic disease. - After reviewing the risks and benefits, thepatient was deemed in satisfactory condition to undergo the procedure. - The anesthesia plan was to use generalanesthesia. - Immediately prior to administration ofmedications, the patient was re-assessed for adequacy to receive sedatives. - The heart rate, respiratory rate, oxygensaturations, blood pressure, adequacy of pulmonary ventilation, and response to care weremonitored throughout the procedure. - The physical status of the patient wasre-assessed after the procedure. After I obtained informed consent, the scope waspassed under direct vision. All instruments were visually inspected immediatelybefore and after removal from the patient to ensure they are fully intact. Throughout the procedure, the patient's bloodpressure, pulse, and oxygen saturations were monitored continuously. ThePCF-H180AL(colonscope)[id number] was introduced through the anus and advanced to the terminal ileum. Thepatient tolerated the procedure well. The quality of the bowel preparation wasfair. The colonoscopy was technically difficult and complex due to significant looping.Successful completion of the procedure was aided by withdrawing and reinsertingthe scope. Findings & Specimens: The digital rectal exam findings include surgically absent prostate.Pertinent negatives include normal sphincter tone. The terminal ileum appeared normal. Two sessile polyps were found in the ascending colon. The polyps were4 to 6 mm in size. These polyps were removed with a cold snare. Resection was complete, but the polyptissue was not retrieved. Multiple medium-mouthed diverticula were found in the sigmoid colonand descending colon. A 5 mm polyp was found in the transverse colon. The polyp wassessile. The polyp was removed with a cold snare. Resection was complete, but the polyp tissue was notretrieved. A localized area of mildly nodular mucosa was found in the anteriorrectum. Biopsies were taken with a cold forceps for histology. The pathology specimen was placed intoBottle Number 2. Estimated blood loss was minimal. Multiple medium-sized localized angioectasias with bleeding oncontact were found in the anerior rectum. Coagulation for hemostasis using argon plasma at 1liter/minute and 20 moon was successful. Estimated blood loss was minimal. The exam was otherwise without abnormality. Impression: - Preparation of the colon was fair. - The examined portion of the ileum was normal. - Two 4 to 6 mm polyps in the ascending colon,removed with a cold snare. Complete resection. Polyp tissue not retrieved. - Moderate diverticulosis in the sigmoid colon andin the descending colon. - One 5 mm polyp in the transverse colon, removedwith a cold snare. Complete resection. Polyp tissue not retrieved. - Nodular mucosa in the rectum. Biopsied. 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 Treated with argon plasma coagulation (APC). - The examination was otherwise normal. Recommendation: - The patient will be observed post-procedure,until all discharge criteria are met. - Advance diet as tolerated today. - Await pathology results. - Repeat colonoscopy in 1 year because the bowelpreparation was suboptimal. - Try Canasa 1000 mg suppository 1 per rectum QHSfor 8 weeks. - If significant bleeding persists, repeat APC canbe arranged. Alicia Hoover DO 02/28/2024 2:18:46 PM This report has been signed electronically. Shorty Gonzales DO GASTRO LOWER documented in this encounter Visit Diagnoses Diagnosis History of colon polyps Personal history of colonic polyps Hemorrhage of rectum and anus documented in this encounter Administered Medications Inactive Administered Medications - up to 3 most recent administrations Medication Order MAR Action Action Date Dose Rate Site isolyte-S pH 7.4 infusion Intravenous, at 75 mL/hr, for Outpatient patient Plasma-LYTE 148, isolyte-S, and isolyte-S pH 7.4 are considered equivalent - including for MAR barcode scanning., CONTINUOUS, Starting on Mon02/28/24 at 1315, Until Mon02/28/24 at 1851, Pre-Op Continue from Pre-Op 02/28/2024 1:24 PM EDT 75 mL/hr New Bag 02/28/2024 1:06 PM EDT 75 mL/hr 75 mL/hr documented in this encounter Active and Recently Administered Medications Times are shown in EDT. Continuous Medication Order 02/26/2024 02/27/2024 02/28/2024 isolyte-S pH 7.4 infusion Intravenous, at 75 mL/hr, for Outpatient patient Plasma-LYTE 148, isolyte-S, and isolyte-S pH 7.4 are considered equivalent - including for MAR barcode scanning., CONTINUOUS, Starting on Mon02/28/24 at 1315, Until Mon02/28/24 at 1851, Pre-Op 1306 (New Bag - Prov ider: Radha Diaz, RN)1324 (Continue from Pre-Op - Provider: Ramona Pinto CRNA)1410 (Anes Intra-Op Fluid - Provider: Ramona Pinto CRNA) documented in this encounter Care Teams Member Of [employer] Relationship Specialty Start Date End Date Shorty Gonzales DO [address] [place] [address] PCP - General Family Medicine 05/02/13 documented as of this encounter
--- OUTSIDE RECORDS SUMMARY | 2024-03-04 14:07 | External Medical Summary | Summary of Care ---
Author Name Unknown Organization [facility] Address [address] [place] [address] Phone [phone] Care Team Providers Care Distribution A Class Lineman Name Role Phone MayurShorty caldwell Sonu CAN Primary Care Provider [phone]- [phone] Reason for Visit * Reason Onset Date Comments Advice 02/29/2024 Encounter Details Date Type Department Care Team (Late st Contact Info) Description 02/29/2024 Telephone Gastroenterology, [facility] [address] [facility] [place] [address] Alicia Hoover DO [address] [place] [address] Advice Allergies Active Allergy Reactions Criticality Noted Date Comments Pollen 05/02/2013 [place], maple pollen Ragweed 05/02/2013 Eye sx documented [...] by mouth in the morning. Active Calcium Carb-Cholecalcifero l 500-10 MG-MCG Oral Tablet Take by mouth. Active Indomethacin 25 MG Oral Capsule (Indocin)Indication s:Gouty arthropathy Take 1 Capsule by mouth 3 times a day as needed for Pain. 40 Capsule 1 07/19/2023 Active Additional Information Patient not taking.Reported on 02/28/2024 Allopurinol 100 MG Oral Tablet (Zyloprim)Indicatio ns:Acute idiopathic gout of right hand TAKE 1 TABLET BY MOUTH EVERY MORNING 90 Tablet 2 09/16/2023 Active Lisinopril 20 MG Oral Tablet (Prinivil)Indicatio ns:HTN, goal below 130/80 Take 1 Tablet by mouth in the morning. 90 Tablet 2 11/14/2023 Active Atorvastatin Calcium 20 MG Oral Tablet (Lipitor)Indication s:Hyperlipidemia TAKE 1 TABLET BY MOUTH EVERY MORNING 90 Tablet 2 01/18/2024 Active Additional Information Patient taking differently:20 mg Oral Daily(AM), Takes at night, Reported on 02/23/2024 Mometasone Furoate 50 MCG/ACT Nasal SuspensionIndicatio ns:Allergic rhinitis, unspecified seasonality, unspecified trigger Administer 2 Sprays into nostril in the morning. 51 g 3 01/26/2024 Active Glimepiride 4 MG Oral Tablet (Amaryl) TAKE 1 TABLET BY MOUTH EVERY MORNING 90 Tablet 2 02/06/2024 Active Vitamin E 100 UNIT Oral Capsule Take 1 Capsule by mouth in the morning. Active Hydrocortisone (Perianal) 2.5 % External CreamIndications:He morrhoids, external without complications Administer into the rectum 2 times a day. 28 g 1 02/20/2024 Active Mesalamine 1000 MG Rectal Suppository (Canasa) Administer 1 Suppository into the rectum at bedtime. 90 Suppository 02/28/2024 Active Ferrous Sulfate 325 (65 Fe) MG Oral Tablet (Feosol) Take 1 Tablet by mouth in the morning and 1 Tablet before bedtime. 180 Tablet 02/28/2024 Active documented as of this encounter (statuses [...] paroxysmal vertigo 03/03/2016 Recurrent nevus of back 01/30/2014 090 11/2018 Pre-diabetes 05/02/2013 12/08/2015 documented as of this encounter (statuses as of 02/29/2024) Immunizations Name Administration Dates Next Due COVID-19 mRNA, LNP-s, No Pre serve, 2-Dose Series (Pfizer) 01/30/2022,06/03/2021,10/28/2020,10/07 Covid-19, Mrna, Lnp-s, Pf, B ivalent, 30 Mcg, IM, 12 yrs and above (Pfizer) 05/20/2022 Pneumococcal Conjugate Vacc, 13 Valent (Prevnar) 05/19/2017 Pneumococcal Conjugate Vacci ne, 20-valent ([id number]) 09/21/2022 Pneumococcal Polysaccharide PPV23 (Pneumovax) 02/26/2016 Seasonal [...] on file documented as of this encounter Miscellaneous Notes * Telephone Encounter - Alicia Hoover DO - 02/29/2024 12:53 PM EDT Able to contact the patient's Radiation Oncology doctor. I did let him know about the radiation proctitis in the treatment be performed for the patient yesterday. Hopefully the patient will begin to improve over the next few weeks. I have also started the patient on a Canasa suppository with this is effective in some patients with radiation proctitis. Should the patient's symptoms persist we could do a repeat colonoscopy with a CBC in 4-6 weeks * Telephone Encounter - Ada Weller OSA - 02/29/2024 11:56 AM EDT Received a call from [facility]/Oncology who stated that Dr. Kalen Hernandez would like to speak with you about Vincenzo. No urgency, Mariah stated she thinks he just wants to run some things by you. [phone] documented in this encounter Plan of Treatment Upcoming Encounters Date Type Department Care Team (Late st Contact Info) Description 03/27/2024 3:40 PM EDT Office Visit [facility] [address] [facility] [place] [address] Shorty Gonzales, DO [address] [place] [address] 06/05/2024 3:00 PM EDT Office Visit [facility] [address] [facility] [place] [address] Shorty Gonzales, DO [address] [facility] [place] [address] 02/25/2025 11:15 AM EDT Office Visit Dermatology [facility] [address] [facility] [place] [address] Cristian Banks MD [address] [place], [place] [address] Health Maintenance Due Date Last Done Comments [...] Not on filedocumented as of this encounter Care Teams Distribution A Class Lineman Relationship Specialty Start Date End Date Shorty Gonzales DO [address] [place] [address] PCP - General Family Medicine 05/02/13 documented as of this encounter
--- OUTSIDE RECORDS SUMMARY | 2024-03-04 14:08 | External Medical Summary ---
Author Name Unknown Address Unknown Organization K01:[facility] - [address] [place] [address] Laboratory Report Ordering Provider Test Date Status ZAK PETERSEN 02/19/2024 10:42:00 Final Observation Date Value Abnormality Reference (Units ) Status Folic Acid 02/19/2024 10:42:00 >20.0 >4.5 (ng/ mL) Final Performing Location [facility] - [address] [place] [address]
--- OUTSIDE RECORDS SUMMARY | 2024-03-04 14:08 | External Medical Summary ---
Author Name Unknown Address Unknown Organization K01:[facility] [place] [address] [facility] [place] [address] Laboratory Report Ordering Provider Test Date Status GIOVANNY PETERSENAngel 02/19/2024 10:42:00 Final Observation Date Value Abnormality Reference (Units ) Status SYNC LEUKOCYTES IN BLOOD BY AUTOMATED COUNT 02/19/2024 10:42:00 4.44 4.00-10.80 (K/uL) Final Segs 02/19/2024 10:42:00 56.3 40.0-75.0 (%) Final Lymphs % 02/19/2024 10:42:00 26.6 18.0-42.0 (%) Final Monos 02/19/2024 10:42:00 11.3 Above high normal 1.0-11.0 (%) Final Eosinophils 02/19/2024 10:42:00 4.5 0.0-6.0 (%) Final Basos 02/19/2024 10:42:00 1.1 0.0-2.0 (%) Final Immature Granulocyte, Percent 02/19/2024 10:42:00 0.2 0.0-2.0 (%) Final Absolute Segs 02/19/2024 10:42:00 2.50 1.80-7.70 (K/uL) Final Lymphs, absolute 02/19/2024 10:42:00 1.18 1.00-4.80 (K/ul) Final Monos, Abs 02/19/2024 10:42:00 0.50 0.00-1.10 (K/uL) Final Eos, Abs 02/19/2024 10:42:00 0.20 0.00-0.70 (K/uL) Final Basos, Abs 02/19/2024 10:42:00 0.05 0.00-0.20 (K/uL) Final Immature Granulocytes, Number 02/19/2024 10:42:00 0.01 0.00-0.20 (K/uL) Final Performing Location [facility] [address] [place] [facility] [address]
--- OUTSIDE RECORDS SUMMARY | 2024-03-04 14:08 | External Medical Summary ---
Author Name Unknown Address Unknown Organization K01:[facility] - [address] [place] [address] Laboratory Report Ordering Provider Test Date Status ZAK PETERSEN 02/19/2024 10:42:00 Final Observation Date Value Abnormality Reference (Units ) Status Vitamin B12 02/19/2024 10:42:00 [phone] (pg/mL) Final Performing Location [facility] - [address] [place] [address]
--- OUTSIDE RECORDS SUMMARY | 2024-03-04 14:08 | External Medical Summary | Summary of Care ---
Author Name Unknown Organization [facility] Address [address] [place] [address] Phone [phone] Care Team Providers Care Early Head Start Teacher Name Role Phone JanetShorty Sonu CAN Primary Care Provider +1 [phone] Reason for Visit * Reason Onset Date Comments Appointment 01/26/2024 Encounter Details Date Type Department Care Team (Late st Contact Info) Description 01/26/2024 Telephone Gastroenterology, [facility] [address] [place] [address] Alicia Hoover DO [address] [place] [address] Appointment Allergies Active Allergy Reactions Criticality Noted Date Comments Fentanyl High 11/22/2021 Other reaction(s): Vomiting Hydromorphone High 11/22/2021 Other reaction(s): vomiting Oxycodone Low 11/22/2021 Other reaction(s): Nausea Pollen 05/02/2013 [place], maple pollen Ragweed 05/02/2013 Eye sx documented as of this encounter (statuses as of 01/26/2024) Medications Medication Sig Dispensed Refills Start Date End Date Status Multiple Vitamin (MULTI VITAMIN MENS) Tablet Take 1 Tab by mouth daily. Active [place]-3 Fatty Acids (FISH OIL DOUBLE STRENGTH) 1200 MG CAPS Take by mouth. Active Cinnamon 500 MG Capsule Take 1 Capsule by mouth in the morning. Active B Complex Vitamins (VITAMIN B COMPLEX) Tablet Take 1 Tablet by mouth in the morning. Active Calcium Carb-Cholecalcifero l 500-10 MG-MCG Oral Tablet Take by mouth. Active Glimepiride 4 MG Oral Tablet (Amaryl) TAKE 1 TABLET BY MOUTH EVERY MORNING 90 Tablet 3 02/11/2023 Active Indomethacin 25 MG Oral Capsule (Indocin)Indication s:Gouty arthropathy Take 1 Capsule by mouth 3 times a day as needed for Pain. 40 Capsule 1 07/19/2023 Active Allopurinol 100 MG Oral Tablet (Zyloprim)Indicatio ns:Acute [...] 01/18/2024 Active Mometasone Furoate 50 MCG/ACT Nasal SuspensionIndicatio ns:Allergic rhinitis, unspecified seasonality, unspecified trigger Administer 2 Sprays into nostril in the morning. 51 g 3 01/26/2024 Active documented as of this encounter (statuses as of 01/26/2024) Active Problems Problem Noted Date Diagnosed Date [...] as of this encounter (statuses as of 01/26/2024) Resolved Problems Problem Noted Date Diagnosed Date Resolved Date Benign paroxysmal vertigo 03/03/2016 Recurrent nevus of back 01/30/2014/0 11/2018 Pre-diabetes 05/02/2013 12/08/2015 documented as of this encounter (statuses as of 01/26/2024) Immunizations Name Administration Dates Next Due COVID-19 mRNA, LNP-s, No Pre serve, 2-Dose Series ([employer]) 01/30/2022,06/03/2021,10/28/2020,10/07 Covid-19, Mrna, Lnp-s, Pf, B ivalent, 30 Mcg, IM, 12 yrs and above (Pfizer) 05/20/2022 Pneumococcal Conjugate Vacc, 13 Valent (Prevnar) 05/19/2017 Pneumococcal Conjugate Vacci ne, 20-valent ([id number]) 09/21/2022 Pneumococcal Polysaccharide PPV23 (Pneumovax) 02/26/2016 Seasonal [...] money to get more. Never true 02/18/2021 Sex and Gender Information Value Date Recorded Sex Assigned at Not on file Gender Identity Not on file Sexual Orientation Not on file Job Start Date Occupation Industry Not on file Not on file Not on file documented as of this encounter Miscellaneous Notes * Telephone Encounter - Izzy Mott OSA - 01/26/2024 3:13 PM EDT Pt scheduled on 04/12/24 for colonoscopy. Pt on move up list. * Telephone Encounter - Alicia Hoover DO - 01/26/2024 2:19 PM EDT The patient can be scheduled for colonoscopy, this can be done by any provider ideally within 4-6 weeks * Telephone Encounter - Juana Aleman OSA - 01/26/2024 2:10 PM EDT MODESTA Perdomo 01/26/2024 2:10 PM * Telephone Encounter - Arpita Canchola OSA - 01/26/2024 2:05 PM EDT Received call from [facility] Radiation Oncology department to schedule appt for ptfor rectal bleeding, questionable radiation proctitis. Records faxed for colonoscopy for rectal bleeding, r/o radiation proctitis and treat with argon laser therapy if indicated. Records will be scanned for you review. Thank you! documented in this encounter Plan of Treatment Upcoming Encounters Date Type Department Care Team (Latest Contact Info) Description 02/08/2024 11:15 AM EDT Office Visit [place]ermatology [place] [facility] [address] [place] [address] Cristian Banks MD [address] [facility] [place] [address] 04/12/2024 2:00 PM EDT Hospital Encounter ENDO [facility], Endoscopy Room [facility] [address] [place] [phone] Savanah Casas MD [address] [place] [address] 04/12/2024 2:00 PM EDT - 04/12/2024 2:30 PM EDT Surgery ENDO [facility], Endoscopy Room [facility] [address] [place] [phone] Savanah Casas MD [address] [place] [address] COLONOSCOPY FLEXIBLE PROXIMAL DIAGNOSTIC 06/05/2024 3:00 PM EDT Office Visit [facility] [place] [address] [place] [address] Shorty Gonzales, DO [address] [place] [address] Scheduled Procedures Name Priority Associated Diagnoses Date/Ti me COLONOSCOPY FLEXIBLE PROXIMAL DIAGNOSTIC Recall History of colon polyps Hemorrhage of rectum and anus 04/12/2024 2:00 PM EDT Health Maintenance Due Date Last Done Comments Cologuard 1996 Fecal Occult Blood Test 1996 Sigmoidoscopy 1996 Depression Screening 10/27/2022 10/27/2021 Diabetic Foot Exam 09/21/2023 09/21/2022, 0 02/19/2021, 01/31/2020, Additional history exists COVID-19 Vaccine ( season) 2023 05/28/2023, 05/20/2022, 01/30/2022, Additional history exists HbA1c 05/16/2024 11/14/2023, 08/22, 10/25/2021, Additional history exists Albumin/Creatinine Ratio 11/13/2024 024, 10/25/2021, 02/06/2020, Additional history exists GFR 11/13/2024 11/14/2023, 03/21, 09/16/2022, Additional history exists Diabetic Eye Exam 12/11/2024 12/12/2023, , 12/05/2022, Additional history exists Colonoscopy 02/11/2025 02/12/2020, 02/12/2020 Colorectal Cancer Screening 02/11/2025 DTaP,Tdap,and Td Vaccines (3 - Td or Tdap) 12/07/2026 12/07/2016, 08/22/2006 Lipid Panel 11/13/2028 11/14/2023, 08/22, 03/17/2021, Additional history exists Zoster Vaccines Completed 06/02/2019, 02/19, 07/05/2012 RETIRED - COLONOSCOPY-EVERY 5 YRS AGES 18-100 Discontinued 02/12/2020, 02/12/2020 Pneumococcal Vaccine: 65+ Years Completed 09/21/2022, 05/19/2017, 02/26/2016 Influenza Vaccine (FLU shot) Completed 05/28/2023, 06/05/2022, 06/06/2021, Additional history exists GARDASIL-HPV IMMUNIZATION SERIES Aged Out No longer eligible based on patient's age to complete this topic Hepatitis B Aged Out No longer eligi ble based on patient's age to complete this topic MENINGOCOCCAL (MENACTRA/MENVEO) Aged Out No longer eligible based on patient's age to complete this topic documented as of this encounter Medical Devices Not on filedocumented as of this encounter Care Teams Early Head Start Teacher Relationship Specialty Start Date End Date Shorty Gonzales DO [address] [place] [address] PCP - General Family Medicine 05/02/13 documented as of this encounter
--- OUTSIDE RECORDS SUMMARY | 2024-03-04 14:08 | External Medical Summary | Summary of Care ---
Author Name Unknown Organization [facility] Address [address] [place] [address] Phone [phone] Care Team Providers Care Drier Operator Head Name Role Phone JanetShorty Sonu CAN Primary Care Provider +1 [phone] Reason for Visit * Reason Onset Date Comments Appointment 01/26/2024 Encounter Details Date Type Department Care Team (Late st Contact Info) Description 01/26/2024 Telephone Gastroenterology, [facility] [address] [place] [address] Alicia Hoover DO [address] [place] [address] Appointment Allergies Active Allergy Reactions Criticality Noted Date Comments Fentanyl High 11/22/2021 Other reaction(s): Vomiting Hydromorphone High 11/22/2021 Other reaction(s): vomiting Oxycodone Low 11/22/2021 Other reaction(s): Nausea Pollen 05/02/2013 [place], maple pollen Ragweed 05/02/2013 Eye sx documented as of this encounter (statuses as of 01/26/2024) Medications Medication Sig Dispensed Refills Start Date End Date Status Multiple Vitamin (MULTI VITAMIN MENS) Tablet Take 1 Tab by mouth daily. Active [place]-3 Fatty Acids (FISH OIL DOUBLE STRENGTH) 1200 [...] mRNA, LNP-s, No Pre serve, 2-Dose Series (Discretix) 01/30/2022,06/03/2021,10/28/2020,10/07 Covid-19, Mrna, Lnp-s, Pf, B ivalent, 30 Mcg, IM, 12 yrs and above (Pfizer) 05/20/2022 Pneumococcal Conjugate Vacc, 13 Valent (Prevnar) 05/19/2017 Pneumococcal Conjugate Vacci ne, 20-valent ([id number]) 09/21/2022 Pneumococcal Polysaccharide PPV23 (Pneumovax) 02/26/2016 Seasonal [...] Aleman OSA - 01/26/2024 2:10 PM EDT Scanned MODESTA Gama 01/26/2024 2:10 PM * Telephone Encounter - Arpita Canchola OSA - 01/26/2024 2:05 PM EDT Received call from [facility] Radiation On[facility] department to schedule appt for ptfor rectal bleeding, questionable radiation proctitis. Records faxed for colonoscopy for rectal bleeding, r/o radiation proctitis and treat with argon laser therapy if indicated. Records will be scanned for you review. Thank you! documented in this encounter Plan of Treatment Upcoming Encounters Date Type Department Care Team (Late st Contact Info) Description 02/08/2024 11:15 AM EDT Office Visit Dermatology [facility] [address] [place] [address] Cristian Banks MD [address] [place] [address] 06/05/2024 3:00 PM EDT Office Visit Family Practice [facility] [address] [place] [address] Shorty Gonzales, [address] [facility] [place] [address] Scheduled Procedures Name Priority Associated Diagnoses Date/Ti me COLONOSCOPY FLEXIBLE PROXIMAL DIAGNOSTIC Recall History of colon polyps Health Maintenance Due Date Last Done Comments [...] filedocumented as of this encounter Care Teams Drier Operator Head Relationship Specialty Start Date End Date Shorty Gonzales DO [address] [place] [address] PCP - General Family Medicine 05/02/13 documented as of this encounter
--- OUTSIDE RECORDS SUMMARY | 2024-03-04 14:08 | External Medical Summary | Summary of Care ---
Author Name Unknown Organization [facility] Address [address] [place] [address] Phone [phone] Care Team Providers Care Sales Professional Name Role Phone Shorty Gonzales DO Primary Care Provider [phone] [phone] Reason for Visit * Reason Comments Outpatient Testing Encounter Details Date Type Department Care Team (Late st Contact Info) Description 02/19/2024 10:50 AM EDT Laboratory [facility] [address] [place] [id number] [place], [facility] [address] [place] [address] Hematochezia Allergies Active Allergy Reactions Criticality Noted Date Comments Fentanyl High 11/22/2021 Other reaction(s): Vomiting Hydromorphone High 11/22/2021 Other reaction(s): vomiting Oxycodone Low 11/22/2021 Other reaction(s): Nausea Pollen 05/02/2013 [place], maple pollen Ragweed 05/02/2013 Eye sx documented as of this encounter (statuses as of 02/19/2024) Medications Medication Sig Dispensed Refills Start Date [...] Capsule by mouth in the morning. Active documented as of this encounter (statuses as of 02/19/2024) Active Problems Problem Noted Date Diagnosed Date [...] as of this encounter (statuses as of 02/19/2024) Resolved Problems Problem Noted Date Diagnosed Date Resolved Date Benign paroxysmal vertigo 03/03/2016 Recurrent nevus of back 01/30/2014 09/0 11/2018 Pre-diabetes 05/02/2013 12/08/2015 documented as of this encounter (statuses as of 02/19/2024) Immunizations Name Administration Dates Next Due COVID-19 mRNA, LNP-s, No Pre serve, 2-Dose Series ([employer]) 01/30/2022,06/03/2021,10/28/2020,10/07 Covid-19, Mrna, Lnp-s, Pf, B ivalent, 30 Mcg, IM, 12 yrs and above (Pfizer) 05/20/2022 Pneumococcal Conjugate Vacc, 13 Valent (Prevnar) 05/19/2017 Pneumococcal Conjugate Vacci ne, 20-valent ([id number]) 09/21/2022 Pneumococcal Polysaccharide PPV23 (Pneumovax) 02/26/2016 Seasonal [...] Department Care Team (Latest Contact Info) Description 02/20/2024 4:40 PM EDT Office Visit [facility] [address] [place] [address] Shorty Gonzales, DO [address] [place] [address] 03/27/2024 3:40 PM EDT Office Visit [facility] [address] [place] [address] Shorty Gonzales, DO [address] [place] [address] 04/12/2024 2:00 PM EDT Hospital Encounter ENDO OSSC, Endoscopy Room [facility] [address] [place] [address] Savanah Casas MD [address] [place] [address] 04/12/2024 2:00 PM EDT - 04/12/2024 2:30 PM EDT Surgery ENDO OSSC, Endoscopy Room [facility] [address] [place] [address] Savanah Casas MD [address] [place] [address] COLONOSCOPY FLEXIBLE PROXIMAL DIAGNOSTIC 06/05/2024 3:00 PM EDT Office Visit Family Practice [facility] [address] [place] [address] Shorty Gonzales DO 200 [facility] [place] [address] 02/25/2025 11:15 AM EDT Office Visit Dermatology [facility] [address] [facility] [place] [address] Cristian Banks MD 200 [facility] [place] [address] Pending Results Name Type Priority Associated Diagnoses Date /Time BASIC METABOLIC PANEL Lab Routine Hematochezia 02/19/2024 10:42 AM EDT CBC WITH WBC DIFFERENTIAL AND ANEMIA REFLEX WORKUP Lab Routine Hematochezia 02/19/2024 10:42 AM EDT ANEMIA CBC Lab Routine Hematochezia 02/19/2024 10:42 AM EDT DIFFERENTIAL, AUTOMATED Lab Routine Hematochezia 02/19/2024 10:42 AM EDT ANEMIA REFLEX CHEMISTRY HOLD Lab Routine Hematochezia 02/19/2024 10:42 AM EDT Scheduled Procedures Name Priority Associated Diagnoses [...] Vaccine: 65+ Years Completed 09/21/2022, 05/19/2017, 02/26/2016 GARDASIL-HPV IMMUNIZATION SERIES Aged Out No longer [...] as of this encounter Visit Diagnoses Diagnosis Hematochezia Blood in stool History of colon polyps Personal history of colonic polyps Hemorrhage of rectum and anus documented in this encounter Care Teams Sales Professional Relationship Specialty Start Date End Date Shorty Gonzales DO [address] [place] [address] PCP - General Family Medicine 05/02/13 documented as of this encounter
--- OUTSIDE RECORDS SUMMARY | 2024-03-04 14:08 | External Medical Summary | Summary of Care ---
Author Name Unknown Organization [facility] Address [address] [place] [address] Phone [phone] Care Team Providers Care Loan Expeditor Name Role Phone JanetShorty Sonu CAN Primary Care Provider [phone] Reason for Visit * Reason Onset Date Comments Appointment 01/26/2024 Encounter Details Date Type Department Care Team (Late st Contact Info) Description 01/26/2024 Telephone Gastroenterology, [facility] [address] [place] [address] Alicia Hoover DO [address] [place] [address] Appointment Allergies Active Allergy Reactions Criticality Noted Date Comments Fentanyl High 11/22/2021 Other reaction(s): Vomiting Hydromorphone High 11/22/2021 Other reaction(s): vomiting Oxycodone Low 11/22/2021 Other reaction(s): Nausea Pollen 05/02/2013 [place], maple pollen Ragweed 05/02/2013 Eye sx documented as of this encounter (statuses as of 01/26/2024) Medications Medication Sig Dispensed Refills Start Date End Date Status Multiple Vitamin (MULTI VITAMIN MENS) Tablet Take 1 Tab by mouth daily. Active [place]-3 Fatty Acids (FISH OIL DOUBLE STRENGTH) 1200 [...] mRNA, LNP-s, No Pre serve, 2-Dose Series ([employer]) 01/30/2022,06/03/2021,10/28/2020,10/07 Covid-19, Mrna, Lnp-s, Pf, B ivalent, 30 Mcg, IM, 12 yrs and above (Pfizer) 05/20/2022 Pneumococcal Conjugate Vacc, 13 Valent (Prevnar) 05/19/2017 Pneumococcal Conjugate Vacci ne, 20-valent ([id number]) 09/21/2022 Pneumococcal Polysaccharide PPV23 (Pneumovax) 02/26/2016 Seasonal [...] encounter Miscellaneous Notes * Telephone Encounter - Juana Aleman OSA - 01/26/2024 2:10 PM EDT Scanned MODESTA Gama 01/26/2024 2:10 PM * Telephone Encounter - Arpita Canchola OSA - 01/26/2024 2:05 PM EDT Received call from [facility] Radiation Oncology department to schedule [...] 02/08/2024 11:15 AM EDT Office Visit Dermatology [facility] [address] [place] [address] Cristian Banks MD [address] [place] [address] 06/05/2024 3:00 PM EDT Office Visit Family Practice [facility] [address] [place] [address] Shorty Gonzales DO [address] [place] [address] Scheduled Procedures Name Priority Associated Diagnoses Date/Ti [...] filedocumented as of this encounter Care Teams Loan Expeditor Relationship Specialty Start Date End Date Shorty Gonzales DO [address] [place] [address] PCP - General Family Medicine 05/02/13 documented as of this encounter
--- OUTSIDE RECORDS SUMMARY | 2024-03-04 14:08 | External Medical Summary ---
Author Name Unknown Address Unknown Organization [id number]:[facility] [address] [place] [address] Laboratory Report Ordering Provider Test Date Status ZAK PETERSEN 02/19/2024 10:42:00 Final Observation Date Value Abnormality Reference (Units ) Status Ferritin 02/19/2024 10:42:00 86 30-400 (ng /mL) Final Performing Location [facility] [address] [place] [address]
--- OUTSIDE RECORDS SUMMARY | 2024-03-04 14:08 | External Medical Summary | Summary of Care ---
Author Name Unknown Organization [facility] Address [address] [place] [address] Phone [phone] Care Team Providers Care Forming Machine Operator Name Role Phone JanetShorty Sonu CAN Primary Care Provider [phone] Reason for Visit * Reason Onset Date Comments Appointment 01/26/2024 Encounter Details Date Type Department Care Team (Late st Contact Info) Description 01/26/2024 Telephone Gastroenterology, [facility] [address] [place] [address] Alicia Hoover DO [address] [place] [address] Appointment Allergies Active Allergy Reactions Criticality Noted Date Comments Fentanyl High 11/22/2021 Other reaction(s): Vomiting Hydromorphone High 11/22/2021 Other reaction(s): vomiting Oxycodone Low 11/22/2021 Other reaction(s): Nausea Pollen 05/02/2013 [place], maple pollen Ragweed 05/02/2013 Eye sx documented as of this encounter (statuses as of 01/26/2024) Medications Medication Sig Dispensed Refills Start Date End Date Status Multiple Vitamin (MULTI VITAMIN MENS) Tablet Take 1 Tab by mouth daily. Active [place]-3 Fatty Acids (FISH OIL DOUBLE STRENGTH) 1200 [...] mRNA, LNP-s, No Pre serve, 2-Dose Series ([employer]) 01/30/2022,06/03/2021,10/28/2020,10/07 Covid-19, Mrna, Lnp-s, Pf, B ivalent, 30 Mcg, IM, 12 yrs and above (Pfizer) 05/20/2022 Pneumococcal Conjugate Vacc, 13 Valent (Prevnar) 05/19/2017 Pneumococcal Conjugate Vacci ne, 20-valent ([id number]) 09/21/2022 Pneumococcal Polysaccharide PPV23 (Pneumovax) 02/26/2016 Seasonal [...] 01/26/2024 2:05 PM EDT Received call from [facility] Radiation Oncology department to schedule [...] 02/08/2024 11:15 AM EDT Office Visit Dermatology [facility] [address] [place] [address] Cristian Banks MD [address] [place] [address] 06/05/2024 3:00 PM EDT Office Visit Family Practice [facility] [address] [place] [address] Shorty Gonzales, 200 [facility] [place] [address] Scheduled Procedures Name Priority Associated Diagnoses Date/Ti [...] filedocumented as of this encounter Care Teams Forming Machine Operator Relationship Specialty Start Date End Date Shorty Gonzales DO [address] [place] [address] PCP - General Family Medicine 05/02/13 documented as of this encounter
--- OUTSIDE RECORDS SUMMARY | 2024-03-04 14:08 | External Medical Summary | Summary of Care ---
Author Name Unknown Organization [facility] Address [address] [place] [address] Phone [phone] Care Team Providers Care Immigration Law Specialist Name Role Phone Trinity Crespo DO Primary Care Provider [phone] Reason for Visit * Reason Comments eRx-Medication Refill Encounter Details Date Type Department Care Team (Late st Contact Info) Description 02/05/2024 Refill Family Practice [facility] [place] [address] [place] [address] Trinity Crespo DO 200 [facility] [place] [address] Allergies Active Allergy Reactions Criticality Noted Date Comments Fentanyl High 11/22/2021 Other reaction(s): Vomiting Hydromorphone High 11/22/2021 Other reaction(s): vomiting Oxycodone Low 11/22/2021 Other reaction(s): Nausea Pollen 05/02/2013 [place], maple pollen Ragweed 05/02/2013 Eye sx documented as of this encounter (statuses as of 02/06/2024) Medications Medication Sig Dispensed Refills Start Date End Date Status Multiple Vitamin (MULTI VITAMIN MENS) Tablet Take 1 Tab by mouth daily. Active [place]-3 Fatty Acids (FISH OIL DOUBLE STRENGTH) 1200 [...] 07/19/2023 Active Allopurinol 100 MG Oral Tablet (Zyloprim)Indicat ions:Acute idiopathic gout of right hand TAKE 1 TABLET BY MOUTH EVERY MORNING 90 Tablet 2 09/16/2023 Active Lisinopril 20 MG Oral Tablet (Prinivil)Indicat ions:HTN, goal below 130/80 Take 1 Tablet by mouth in the morning. 90 Tablet 2 11/14/2023 Active Atorvastatin Calcium 20 MG Oral Tablet (Lipitor)Indicati ons:Hyperlipidemi a TAKE 1 TABLET BY MOUTH EVERY MORNING 90 Tablet 2 01/18/2024 Active Mometasone Furoate 50 MCG/ACT Nasal SuspensionIndicat ions:Allergic rhinitis, unspecified seasonality, unspecified trigger Administer 2 Sprays into nostril in the morning. 51 g 3 01/26/2024 Active Glimepiride 4 MG Oral Tablet (Amaryl) TAKE 1 TABLET BY MOUTH EVERY MORNING 90 Tablet 2 02/06/2024 Active Glimepiride 4 MG Oral Tablet (Amaryl) TAKE 1 TABLET BY MOUTH EVERY MORNING 90 Tablet 3 02/11/2023 4 Discontinued documented as of this encounter (statuses as of 02/06/2024) Active Problems Problem Noted Date Diagnosed Date [...] as of this encounter (statuses as of 02/06/2024) Resolved Problems Problem Noted Date Diagnosed Date Resolved Date Benign paroxysmal vertigo 03/03/2016 Recurrent nevus of back 01/30/2014 09/0 11/2018 Pre-diabetes 05/02/2013 12/08/2015 documented as of this encounter (statuses as of 02/06/2024) Immunizations Name Administration Dates Next Due COVID-19 mRNA, LNP-s, No Pre serve, 2-Dose Series ([employer]) 01/30/2022,06/03/2021,10/28/2020,10/07 Covid-19, Mrna, Lnp-s, Pf, B ivalent, 30 Mcg, IM, 12 yrs and above (Pfizer) 05/20/2022 Pneumococcal Conjugate Vacc, 13 Valent (Prevnar) 05/19/2017 Pneumococcal Conjugate Vacci ne, 20-valent ([id number]) 09/21/2022 Pneumococcal Polysaccharide PPV23 (Pneumovax) 02/26/2016 Seasonal [...] encounter Miscellaneous Notes * Telephone Encounter - Atilio Padron [facility] - 02/06/2024 1:31 PM EDTSigned Prescriptions: Disp Refills Glimepiride 4 MG Oral Tablet (Amaryl) 90 Tab*2 Sig: TAKE 1 TABLET BY MOUTH EVERY MORNINGAuthorizing Provider: TRINITY CRESPO User: ATILIO PADRON------- documented in this encounter Plan of Treatment Upcoming Encounters Date Type Department Care Team (Latest Contact Info) Description 02/08/2024 11:15 AM EDT Office Visit Dermatology [facility] [address] [facility] [place] [address] Cristian Banks MD [address] [facility] [place] [address] 04/12/2024 2:00 PM EDT Hospital Encounter ENDO OSSC, Endoscopy Room [facility] [address] [place] [address] Savanah Casas MD [address] [place] [address] 04/12/2024 2:00 PM EDT - 04/12/2024 2:30 PM EDT Surgery ENDO OSSC, Endoscopy Room [facility] [address] [place] [address] Savanah Casas MD [address] [place] [address] COLONOSCOPY FLEXIBLE PROXIMAL DIAGNOSTIC 06/05/2024 3:00 PM EDT Office Visit Family Practice [facility] [place] [address] [facility] [place] [address] Trinity Crespo DO 200 [facility] [place] [address] Scheduled Procedures Name Priority Associated Diagnoses Date/Ti [...] filedocumented as of this encounter Care Teams Immigration Law Specialist Relationship Specialty Start Date End Date Trinity Crespo DO [address] [place] [address] PCP - General Family Medicine 05/02/13 documented as of this encounter
--- OUTSIDE RECORDS SUMMARY | 2024-03-04 14:08 | External Medical Summary ---
Author Name Unknown Address Unknown Organization K09:[facility] [place] [address] Laboratory Report Ordering Provider Test Date Status ZAK PETERSEN 02/21/2024 12:55:53 Final Observation Date Value Abnormality Reference (Units ) Status WBC, Total 02/21/2024 12:55:53 5.47 4.00-10.8 0 (K/uL) Final RBC 02/21/2024 12:55:53 2.45 4.50-5.25 (M/uL) Final Hemoglobin 02/21/2024 12:55:53 7.5 Below low normal 14 .0-16.8 (g/dL) Final HCT 02/21/2024 12:55:53 23.9 Below low normal 40. 0-48.4 (%) Final MCV 02/21/2024 12:55:53 97.6 82.0-99.5 (fL) Final MCH 02/21/2024 12:55:53 30.6 27.0-34.0 (pg) Final MCHC 02/21/2024 12:55:53 31.4 32.0-36.0 (g/dL) Final RDW 02/21/2024 12:55:53 14.2 11.5-15.5 (%) Final Platelets 02/21/2024 12:55:53 119 Below low normal 140 -400 (K/uL) Final MPV 02/21/2024 12:55:53 10.0 6.6-11.1 ( fL) Final Performing Location [facility] [place] [address]
--- OUTSIDE RECORDS SUMMARY | 2024-03-04 14:08 | External Medical Summary | Summary of Care ---
Author Name Unknown Organization [facility] Address [address] [place] [address] Phone [phone] Care Team Providers Care Door To Door Sales Representative Name Role Phone MayurTrinity caldwell Sonu CAN Primary Care Provider [phone] Reason for Visit * Reason Comments Follow Up Skin check- no acute concerns at this time Encounter Details Date Type Department Care Team (Late st Contact Info) Description 02/08/2024 11:15 AM EDT Office Visit Dermatology [facility] [place] [address] [facility] [place] [address] Cristian Banks MD [address] [facility] [place] [address] Actinic skin damage*; Seborrheic keratoses; Hx of basal cell carcinoma; Scar; Actinic keratosis; Skin neoplasm Allergies Active Allergy Reactions Criticality Noted Date Comments Fentanyl High 11/22/2021 Other reaction(s): Vomiting Hydromorphone High 11/22/2021 Other reaction(s): vomiting Oxycodone Low 11/22/2021 Other reaction(s): Nausea Pollen 05/02/2013 [place]wood, maple pollen Ragweed 05/02/2013 Eye sx documented as of this encounter (statuses as of 02/08/2024) Medications Medication Sig Dispensed Refills Start Date [...] Capsule by mouth in the morning. Active [place]field-3 Fatty Acids (FISH OIL DOUBLE STRENGTH) 1200 MG CAPS Take by mouth. Discontinue d(Medicatio n List Clean Up) documented as of this encounter (statuses as of 02/08/2024) Active Problems Problem Noted Date Diagnosed Date [...] as of this encounter (statuses as of 02/08/2024) Resolved Problems Problem Noted Date Diagnosed Date Resolved Date Benign paroxysmal vertigo 03/03/2016 Recurrent nevus of back 01/30/2014 09/0 11/2018 Pre-diabetes 05/02/2013 12/08/2015 documented as of this encounter (statuses as of 02/08/2024) Immunizations Name Administration Dates Next Due COVID-19 mRNA, LNP-s, No Pre serve, 2-Dose Series (Pfizer) 01/30/2022,06/03/2021,10/28/2020,10/07 Covid-19, Mrna, Lnp-s, Pf, B ivalent, 30 Mcg, IM, 12 yrs and above (Pfizer) 05/20/2022 Pneumococcal Conjugate Vacc, 13 Valent (Prevnar) 05/19/2017 Pneumococcal Conjugate Vacci ne, 20-valent ([id number]) 09/21/2022 Pneumococcal Polysaccharide PPV23 (Pneumovax) 02/26/2016 Seasonal [...] on file documented as of this encounter Progress Notes * Cristian Banks MD - 02/08/2024 11:13 AM EDT SUBJECTIVE: Chief Complaint: Chief Complaint Patient presents with Follow Up Skin check- no acute concerns at this time HPI: Vincenzo Hernández is a 73 year old male seen for a full skin check for history of nonmelanoma skin cancer. 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 Left lateral calf - 4mm thin brown papule with some pigment network - favor SK, but r/o AMP Left roman catholic x3, right shoulder, left shoulder - x5 total gritty erythematous macules/papules Well-healed scar(s) at primary site(s) without evidence of recurrence Scattered on face, chest, back - diffuse mottled hypopigmented and hyperpigmented macules without significant irregularity. Associated telangiectasias At the trunk and extremities are several scattered montes de oca/brown hyperkeratotic stuck on appearing waxypapules. ASSESSMENT/PLAN: Skin neoplasm(s) - Shave biopsy of the following lesion(s) A. Left lateral calf - 4mm thin brown papule with some pigment network - favor SK, but r/o AMP Procedure - Tangential biopsy of skin Biopsy by shave was recommended for the lesion(s) noted above to establish and confirm diagnosis. The procedure, risks, benefits, alternatives and expected outcomes were discussed with the patient and consent was obtained. Time out called. Patient identified, procedure verified, site(s) identified and verified. Patient and staff present in agreement. Area prepped with alcohol and anesthetized using 0.5% lidocaine with epinephrine at 1:200,000 concentration. Biopsy of lesion(s) performed. 20% AlCl and bandaging applied. Specimen(s) sent to pathology. Patient instructed in routine post-op care. Actinic keratosis -The diagnosis and malignant potential of the lesion was explained. Treatment options were reviewedincluding cryotherapy, topical medications, and observation. All questions were addressed. Procedure - Cryotherapy (Premalignant Destruction) -The patient would like to proceed with cryosurgery;Cryosurgery explained to the patient, consent obtained, patient, site and procedure verified, and then cryotherapy was performed with Liquid Nitrogen via cryo spray unit to 5 lesions. Location noted in physical exam. Post op course explained. -Discussed that if any of these lesions fail to completely resolve after treatment patient should call me for re-evaluation Scar(s), History of Nonmelanoma Skin Cancer - Well healed scar(s) with no evidence of recurrence - Recommended periodic skin exams and instructed to call clinic if patient notices any changing lesions, including rapid enlargement, changes in color or shape or symptoms, bleeding, or other concerns. The common features and behavior of non-melanoma skin cancers (e.g. basal cell carcinoma/squamouscell carcinoma) as well as the features of melanoma were also reviewed. -Daily sun protection recommended including physical (i.e. clothing) and chemical blockers. Broad spectrum sunscreens with at least SPF 30 for UVA and UVA protection were recommended. Chronic Actinic Damage - Discussed that skin changes are due to chronic sun exposure. - Daily sun protection recommended as discussed above Seborrheic keratoses - The benign nature of these lesions was discussed with the patient and that no treatment is indicated today. Cristian Banks MD Ref: SELF[[id number]] NO STREET ADDRESS AVAILABLE None (office) None (fax) PCP: [facility] [place] [address] [phone] documented in this encounter Nursing Notes * Heaven Veloz LPN - 02/08/2024 11:05 AM EDT Patient identified by name and date of . Do you have any concerns about pain management for today's visit? No Living Will or Advance Directive for Health Care as noted on problem list. [facility] is a way you can talk to your provider online through e-mail. Would you like to sign up? I can activate it for you? ALREADY ACTIVE Chief Complaint Patient presents with Follow Up Skin check- no acute concerns at this time documented in this encounter Plan of Treatment Upcoming Encounters Date Type Department Care Team (Latest Contact Info) Description 03/27/2024 3:40 PM EDT Office Visit [facility] [place] [address] [facility] [place] [phone] Trinity Crespo, DO [address] [facility] [place] [address] 04/12/2024 2:00 PM EDT Hospital Encounter ENDO OSS[facility], Endoscopy Room [facility] [address] [place] [phone] Savanah Casas MD [address] [place] [address] 04/12/2024 2:00 PM EDT - 04/12/2024 2:30 PM EDT Surgery ENDO [facility], Endoscopy Room [facility] [address] [place] [phone] Savanah Casas MD [address] [place] [address] COLONOSCOPY FLEXIBLE PROXIMAL DIAGNOSTIC 06/05/2024 3:00 PM EDT Office Visit [facility] [address] [facility] [place] [address] Trinity Crespo, DO [address] [place] [address] 02/25/2025 11:15 AM EDT Office Visit Dermatology [facility] [place] [address] [place] [address] Cristian Banks MD [address] [facility] [place] [address] Pending Results Name Type Priority Associated Diagnoses Date /Time SURGICAL PATHOLOGY Pathology Routine Skin neoplasm 02/08/2024 11:29 AM EDT Scheduled Procedures Name Priority Associated [...] as of this encounter Visit Diagnoses Diagnosis Actinic skin damage- Primary Other dermatitis due to solar radiation Seborrheic keratoses Hx of basal cell carcinoma Personal history of other malignant neoplasm of skin Scar Scar condition and fibrosis of skin Actinic keratosis Skin neoplasm Neoplasm of unspecified nature of bone, soft tissue, and skin History of colon polyps Personal history of colonic polyps Hemorrhage of rectum and anus documented in this encounter Care Teams Door To Door Sales Representative Relationship Specialty Start Date End Date Trinity Crespo DO [address] [place] [address] PCP - General Family Medicine 05/02/13 documented as of this encounter
--- OUTSIDE RECORDS SUMMARY | 2024-03-04 14:08 | External Medical Summary ---
Author Name Unknown Address Unknown Organization [id number]:LABORATORY [facility] [place] - [address] [place] [address] Laboratory Report Ordering Provider Test Date Status TRINITYZAK 02/19/2024 10:42:00 Final Observation Date Value Abnormality Reference (Units ) Status Retic, % (auto) 02/19/2024 10:42:00 4.87 Above high normal 0.80-1.90 (%) Final Reticulocytes, Absolute 02/19/2024 10:42:00 124.2 Above high normal 31.3-100.1 (K/uL) Final Reticulocyte fraction, immature 02/19/2024 10:42:00 21.6 Above high normal 2.5-20.6 (%) Final Reticulocyte HGB 02/19/2024 10:42:00 31.7 29.7-37.4 (pg) Final Performing Location [facility] [place] - [address] [place] [address]
--- OUTSIDE RECORDS SUMMARY | 2024-03-04 14:08 | External Medical Summary | Summary of Care ---
Author Name Unknown Organization [facility] Address [address] [place] [address] Phone [phone] Care Team Providers Care Guide Name Role Phone Shorty Gonzales DO Primary Care Provider Reason for Visit * Reason Comments Rectal Bleeding Encounter Details Date Type Department Care Team (Latest Contact Info) Description 02/20/2024 4:40 PM EDT Office Visit [facility] [address] [place] [address] Shorty Gonzales DO [address] [place] [address] Rectal bleeding*; Hemorrhoids, external without complications Allergies Active Allergy Reactions Criticality Noted Date Comments Pollen 05/02/2013 Stout, maple pollen Ragweed 05/02/2013 Eye sx documented as of this encounter (statuses as of 02/20/2024) Medications Medication Sig Dispensed Refills Start Date [...] as of this encounter (statuses as of 02/20/2024) Active Problems Problem Noted Date Diagnosed Date [...] as of this encounter (statuses as of 02/20/2024) Resolved Problems Problem Noted Date Diagnosed Date Resolved Date Benign paroxysmal vertigo 03/03/2016 Recurrent nevus of back 01/30/201411/2018 Pre-diabetes 05/02/2013 12/08/2015 documented as of this encounter (statuses as of 02/20/2024) Immunizations Name Administration Dates Next Due COVID-19 mRNA, LNP-s, No Pre serve, 2-Dose Series (Stukent) 01/30/2022,06/03/2021,10/28/2020,10/07 Covid-19, Mrna, Lnp-s, Pf, B ivalent, 30 Mcg, IM, 12 yrs and above (Pfizer) 05/20/2022 Pneumococcal Conjugate Vacc, 13 Valent (Prevnar) 05/19/2017 Pneumococcal Conjugate Vacci ne, 20-valent ([id number]) 09/21/2022 Pneumococcal Polysaccharide PPV23 (Pneumovax) 02/26/2016 Seasonal [...] Sign Reading Time Taken Comments Blood Pressure 96/52 02/20/2024 4:53 PM EDT Pulse 87 02/20/2024 4:53 PM EDT Temperature 37.4 C (99.3 F) 02/20/2024 4:53 PM ED T Respiratory Rate 18 02/20/2024 4:53 PM EDT Oxygen Saturation 100% 02/20/2024 4:53 PM EDT Inhaled Oxygen Concentration - - Weight 83.7 kg (184 lb 9.6 oz) 02/20/2024 4:53 P M EDT Height - - Body Mass Index 29.32 11/14/2023 1:07 PM EDT documented in this encounter Progress Notes * Shorty Gonzales, - 02/20/2024 4:59 PM EDT Subjective: Vincenzo Hernández is a 73 year old male. Chief Complaint Patient presents with Rectal Bleeding HPI: Pt with rectal bleeding for over a month. It happens every 2 days or so. IT is a lot of blood or blood clots. When it starts to come he has to hit a bathroom. His HGB is 7.9. Does not know what to eat or what to change. No alcohol. Cutting out caffeiene. He is on Aspirin. His daughter is getting here Monday or and staying til Monday. Iron discussed. Will stop Lisinopril until bleeding fixed. PMHx, meds, and allergies reviewed Patient Active Problem List Diagnosis Hyperlipidemia HTN, goal below 140/90 Actinic keratosis History of basal cell carcinoma Actinic keratosis Type 2 diabetes mellitus with hemoglobin A1c goal of less than 7.0% (HCC) History of prostate cancer Type 2 diabetes mellitus with polyneuropathy (HCC) Chronic osteoarthritis Prostate cancer (HCC) Current Outpatient Medications Medication Sig Dispense Refill Multiple Vitamin (MULTI VITAMIN MENS) Tablet Take 1 Tab by mouth daily. Cinnamon 500 MG Capsule Take 1 Capsule by mouth in the morning. B Complex Vitamins (VITAMIN B COMPLEX) Tablet Take 1 Tablet by mouth in the morning. Calcium Carb-Cholecalciferol 500-10 MG-MCG Oral Tablet Take by mouth. Allopurinol 100 MG Oral Tablet (Zyloprim) TAKE 1 TABLET BY MOUTH EVERY MORNING 90 Tablet 2 Lisinopril 20 MG Oral Tablet (Prinivil) Take 1 Tablet by mouth in the morning. 90 Tablet 2 Atorvastatin Calcium 20 MG Oral Tablet (Lipitor) TAKE 1 TABLET BY MOUTH EVERY MORNING 90 Tablet 2 Mometasone Furoate 50 MCG/ACT Nasal Suspension Administer 2 Sprays into nostril in the morning. 51 g 3 Glimepiride 4 MG Oral Tablet (Amaryl) TAKE 1 TABLET BY MOUTH EVERY MORNING 90 Tablet 2 Vitamin E 100 UNIT Oral Capsule Take 1 Capsule by mouth in the morning. Indomethacin 25 MG Oral Capsule (Indocin) Take 1 Capsule by mouth 3 times a day as needed for Pain.40 Capsule 1 No current facility-administered medications for this visit. Review of patient's allergies indicates: Allergen Reactions Pollen Stout, maple pollen Ragweed Eye sx OBJECTIVE: BP 96/52 | Pulse 87 | Temp 37.4 C (99.3 F) (Tympanic) | Resp 18 | Wt 83.7 kg (184 lb 9.6 oz) | SpO2 100% | BMI 29.32 kg/m | BSA 1.98 m Estimated body mass index is 29.32 kg/m as calculated from the following: Height as of 11/14/23: 1.69 m (5' 6.54"). Weight as of this encounter: 83.7 kg (184 lb 9.6 oz). BP Readings from Last 3 Encounters: 02/20/24 96/52 11/14/23 118/66 04/04/23 112/62 Wt Readings from Last 3 Encounters: 02/20/24 83.7 kg (184 lb 9.6 oz) 11/14/23 86.9 kg (191 lb 9.6 oz) 04/04/23 85.1 kg (187 lb 9.6 oz) ROS: Negative except for above PHYSICAL EXAM: General: alert, healthy, and no distress Head: Normocephalic, No masses, lesions, tenderness or abnormalities Rectal: anus normal, digital rectal exam negative, anal sphincter tone normal, and no masses palpated. Hemorrhoid present but not actively bleeding ASSESSMENT/Plan Rectal bleeding (Primary) - CBC; Future; Expected date: 02/20/2024 Hemorrhoids, external without complications - Hydrocortisone (Perianal) 2.5 % External Cream; Administer into the rectum 2 times a day. I spent a total of 30 minutes on the date of service in preparation, delivery, and documentation ofthe care provided to this patient, excluding any time spent on the performance of any procedure or separately billable services. I have to think that this is from radiation proctitis. We need a scope to confirm this and treat itthough. We discussed the option of going to the Er with his current blood count but he is hoping tosee his daughter in the coming days. Ask-a-doc sent to see if anything acute can be done with GI. Start iron and stop lisinopril now. The above was discussed and understanding was expressed. Shorty Gonzales DO documented in this encounter Nursing Notes * Iva Alonso LPN - 02/20/2024 4:50 PM EDT Patient says he's trying to find out if he has radiation proctitis. Reports pretty heavy rectal bleeding for about 4 weeks. He has had to start wearing depends. Says sometimes the blood drips out, sometimes it gushes. Sometimes it has clots or mucous in it. He's had blood in his stool for quite a while but this is different and worse. Has a colonoscopy scheduled for 04/12/24 but needs to be seen sooner. documented in this encounter Plan of Treatment Upcoming Encounters Date Type Department Care Team (Latest Contact Info) Description 03/27/2024 3:40 PM EDT Office Visit [facility] [address] [place], [place] [address] Shorty Gonzales, DO [address] [place] [address] 04/12/2024 2:00 PM EDT Hospital Encounter ENDO OSSC, Endoscopy Room [facility] [address] [place] [phone] Savanah Casas MD [address] [place] [address] 04/12/2024 2:00 PM EDT - 04/12/2024 2:30 PM EDT Surgery ENDO OSS, Endoscopy Room [facility] [address] [place] [phone] Savanah Casas MD [address] [place] [address] COLONOSCOPY FLEXIBLE PROXIMAL DIAGNOSTIC 06/05/2024 3:00 PM EDT Office Visit [facility] [address] [place] [address] Shorty Gonzales, DO [address] [place] [address] 02/25/2025 11:15 AM EDT Office Visit Dermatology [facility] [place] [address] [place], [place] [address] Cristian Banks MD [address] [place] [address] Scheduled Orders Name Type Priority Associated Diagnoses Orde r Schedule CBC Lab Routine Rectal bleeding Expected: 02/20/2024 (Approximate), Expi res: 02/19/2025 Scheduled Procedures Name Priority Associated Diagnoses Date/Ti [...] of this encounter Visit Diagnoses Diagnosis Rectal bleeding- Primary Hemorrhage of rectum and anus Hemorrhoids, external without complications External hemorrhoids without mention of complication History of colon polyps Personal history of colonic polyps Hemorrhage of rectum and anus documented in this encounter Care Teams Guide Relationship Specialty Start Date End Date Shorty Gonzales DO [facility] [place] [address] PCP - General Family Medicine 05/02/13 documented as of this encounter
--- OUTSIDE RECORDS SUMMARY | 2024-03-04 14:08 | External Medical Summary ---
Author Name Unknown Address Unknown Organization [id number]:[facility] [place] - [address] [place] [address] Laboratory Report Ordering Provider Test Date Status ZAK PETERSEN 02/19/2024 10:42:00 Final Observation Date Value Abnormality Reference (Units ) Status Iron 02/19/2024 10:42:00 57 45-176 (ug /dL) Final Iron-binding capacity 02/19/2024 10:42:00 324 250-425 (ug/dL) Final Transferrin Sat % 02/19/2024 10:42:00 18 15 -55 (%) Final Performing Location [facility] [place] - [address] [place] [address]
--- OUTSIDE RECORDS SUMMARY | 2024-03-04 14:08 | External Medical Summary ---
Author Name Unknown Address Unknown Organization K01:LAB[facility]ATORY [facility] [place] - [address] [place] [address] Laboratory Report Ordering Provider Test Date Status ZAK PETERSEN 02/19/2024 10:42:00 Final Observation Date Value Abnormality Reference (Units ) Status TSH 02/19/2024 10:42:00 1.10 0.27-4.20 (uIU/mL) Final Performing Location LABORATORY C - [address] [place] [address]
--- NOTE | 2024-03-04 15:40 | Gastrointestinal Consultation ---
<Statement entered by Gigi Clark MD - 03/04/24 19:37> Patient seen and examined. Case discussed with David PYLE. Patient has known radiation proctitis and had recent colonoscopy with APC ablation. He continued to bleed although not as much. He is hemodynamically stable. Will plan Flex sig with possible APC ablation again. This procedure, the alternatives including no work up or treatment, risks and benefits were discussed. Among the risks discussed included cardiorespiratory suppression, aspiration, bleeding, failure to diagnose cancer or other pathology and pe rforation requiring surgery. In addition we discussed that if specimens are obtained it may be deemed beneficial to send these for genetic/DNA testing. The patient claimed to understand all that was discussed, consented to all and all of his questions were answered. Date of Consultation March 04, 2024 Assessment & Plan (1) Radiation proctitis: (2) Anemia: Plan Patient with 2-3 months of rectal bleeding secondary to radiation proctitis. Recent colonoscopy one week ago with APC. Came to the ED with dizziness and facial droop. Head CT and CTA were unremarkable. hgb 5.9. he is being transfused with 2 units of PRBC. Discussed case with DR. Clark who helped advise on plan. - will keep NPO tonight at midnight. - will plan to do tap water enemas tonight and tomorrow morning. - Patient is agreeable to having a flex sig tomorrow for further evaluation. - monitor hgb/hct and tranfuse as needed. History of Present Illness Reason for Consultation: Rectal Bleeding Requesting Physician: New Chin MD History of Present Illness Patient is a 73 year old male with history of diabetes type 2, hypertension, metastatic prostate cancer 2009 status post prostatectomy, radiation therapy, radiation proctitis presenting with dizziness and facial droop. CT and CTA head without acute process. He tells me that he has been having ongoing rectal bleeding for the past 2-3 months and has 6-8 bloody bowel movements a day. He tells me that he has been following with Dr. Hoover at [facility] and had a co lonoscopy and egd done last week showing gastritis, radiation proctitis treated with APC, polyps, and diverticulosis. I do not have these records. He tells me that he was told when he had this that he still had some radiation proctitis that would need treated. He was using mesalmine suppositories but admits he only used this for 4 days. He also has had some lower abdominal pain that he attributes to the radiation proctitis as he has been dealing with this for about 2-3 months as well. He proceeded to the ED today as he was "at my wits end". Upon evaluation in the ED, he was found to have a hgb of 5.9. He has been ordered two units of PRBC. rest of GI ros unremarkable. Allergies Allergy/AdvReac Type Severity Reaction Status Date / Time fentanyl AdvReac Intermediate Vomiting Verified 03/04/24 13:00 hydromorphone [From Dilaudid] AdvReac Intermediate vomiting Verified 03/04/24 13:00 oxycodone AdvReac Mild Nausea Verified 03/04/24 13:00 Home Medications Medication Instructions Recorded Confirmed Type allopurinol 100 mg tablet 100 mg PO QAM 11/18/18 03/04/24 History atorvastatin 20 mg tablet 20 mg PO HS 11/18/18 03/04/24 History coenzyme Q10 10 mg capsule 10 mg PO QAM 11/18/18 03/04/24 History lisinopril 20 mg tablet 20 mg PO QAM 11/18/18 03/04/24 History mometasone 50 mcg/actuation nasal 2 spray intranasal DAILY PRN 11/18/18 03/04/24 History spray Allergy Symptoms multivitamin 1 tab PO QAM 11/18/18 03/04/24 History vitamin B complex 1 tab PO QAM 11/18/18 03/04/24 History cetirizine 10 mg tablet (Zyrtec) 10 mg PO DAILY PRN Allergy Symptoms 11/22/21 03/04/24 History calcium carb-ergocalciferol (vit 1,000 tab PO DAILY 02/13/23 03/04/24 History D2) 500 mg-125 unit tablet cholecalciferol (vitamin D3) 25 25 mcg PO DAILY 02/13/23 03/04/24 History mcg (1,000 unit) capsule vitamin E mixed 400 unit capsule 400 unit PO QAM 02/13/23 03/04/24 History glimepiride 4 mg tablet 4 mg PO QAM 03/04/24 03/04/24 History mesalamine 1,000 mg rectal 1,000 mg HI HS 03/04/24 03/04/24 History suppository Patient History Medical History Anaplasmosis Thrombocytopenia Chronic- platelets baseline in the 's per chart review dating back to at least 2018 ([facility]). Appears to have been initially noted during active anaplasmosis infection at that time which was treated. Surgical History History of umbilical hernia repair S/P cataract surgery right and left S/P cholecystectomy History of prostate surgery prostatectomy 2009 History of cystoscopy Family History Mother Coronary heart disease Father No problems noted. 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 Feels Safe at Home: Yes Assistive Devices: Glasses Review of Systems Review of Systems: All systems reviewed & are unremarkable except as noted in HPI & below Physical Exam 2 Constitutional: WD/WN, vitals as above Respiratory: normal respiratory effort, lungs clear to auscultation Cardiovascular: RRR, no murmur, no edema Gastrointestinal (Abdomen): normal bowel sounds, soft, nontender, no hepatosplenomegaly Psychiatric: Orientation: alert and oriented x 3 Affect: euthymic affect Results & Data Vital Signs (Past 12 Hours) Vital Signs Temp Pulse Pulse Resp BP BP Pulse Ox 03/04/24 15:30 98.2 F 75 14 120/76 100 03/04/24 15:12 98.2 F 71 12 121/64 100 03/04/24 14:45 76 18 117/65 99 03/04/24 14:41 76 03/04/24 14:00 69 18 104/61 100 03/04/24 13:30 70 20 101/61 100 03/04/24 13:15 97.9 F 75 18 115/70 03/04/24 12:59 98.1 F 77 18 117/62 100 03/04/24 12:15 76 15 98 03/04/24 12:00 110/61 03/04/24 12:00 110/61 03/04/24 11:54 78 21 98 03/04/24 11:38 116/54 L 03/04/24 11:30 83 16 03/04/24 11:00 75 12 100 03/04/24 11:00 113/68 03/04/24 11:00 113/68 03/04/24 10:42 86 03/04/24 10:39 77 14 100 03/04/24 10:29 86 14 123/71 100 03/04/24 10:01 98.2 F 93 H 18 98/57 L 100 O2 Del Method 03/04/24 15:30 03/04/24 15:12 03/04/24 14:45 03/04/24 14:41 03/04/24 14:00 03/04/24 13:30 03/04/24 13:15 03/04/24 12:59 03/04/24 12:15 03/04/24 12:00 03/04/24 12:00 03/04/24 11:54 03/04/24 11:38 03/04/24 11:30 03/04/24 11:00 03/04/24 11:00 03/04/24 11:00 03/04/24 10:42 03/04/24 10:39 03/04/24 10:29 Room Air 03/04/24 10:01 Room Air Coding Level of Care Code 14033 INT INP/OBS CARE 255MIN Diagnoses Radiation proctitis K62.7 Anemia D64.9 Anemia type: unspecified type (2) Anemia Anemia type: unspecified type Qualified Code(s): D64.9 - Anemia, unspecified
[2024-03-04] MEDS ORDERED: GLUCOSE 40% GEL 15 GM TUBE PO PRN (16:18)
[2024-03-04] MEDS ORDERED: GLUCOSE 10 TAB/TUBE PO PRN (16:18)
[2024-03-04] MEDS ORDERED: GLUCAGON FOR INJ 1 MG VIAL SQ PRN (16:18)
[2024-03-04] MEDS ORDERED: PHARMACIST DISCHARGE MED REC CONSULT PRN (16:18)
[2024-03-04] MEDS ORDERED: CARBOHYDRATES FOR HYPOGLYCEMIA PO PRN (16:18)
[2024-03-04] MEDS ORDERED: DEXTROSE 50% 50 ML SYRINGE IV PRN (16:18)
[2024-03-04] MEDS: PANTOprazole 40 MG in SYRINGE 0 ML IV SCH (16:53)
[2024-03-04] MEDS: SODIUM CHLORIDE 0.9% 1,000 ML IV SCH (16:55)
[2024-03-04 17:33] LABS: Appearance Urine Clear (Clear); Bilirubin Urine Negative (Negative); Blood Urine Negative (Negative); Color Urine Yellow; Glucose Urine UA Negative (Negative); Ketones Urine Negative (Negative); Leukocyte Esterase Urine Negative (Negative); Nitrite Urine Negative (Negative); Protein Urine Negative (Negative); Specific Gravity Urine 1.027 (1.000-1.030); Urobilinogen Urine Negative (Negative)
[2024-03-04 18:12] LABS: Hematocrit (blood only) 26.4 % (42.0-52.0); Hemoglobin 8.2 g/dl (14.0-18.0)
[2024-03-04] MEDS: INSULIN ASPART PER UNIT CHARGE SC SCH (18:46)
[2024-03-04] MEDS: LORazepam 0.5 MG TAB PO STA (23:09)
[2024-03-04 23:21] LABS: Hematocrit (blood only) 26.8 % (42.0-52.0); Hemoglobin 8.5 g/dl (14.0-18.0)
[2024-03-05 06:14] LABS: Basophils # (auto) 0.02 K/uL (0.00-0.20); Basophils % (auto) 0.6 %; Eosinophils # (auto) 0.18 K/uL (0.00-0.50); Eosinophils % (auto) 5.4 %; Hematocrit (blood only) 27.2 % (42.0-52.0); Hemoglobin 8.6 g/dl (14.0-18.0); Immature Granulocytes # (auto) 0.01 K/uL (0.01-0.20); Immature Granulocytes % (auto) 0.3 %; Lymphocytes # (auto) 0.82 K/uL (1.20-3.40); Lymphocytes % (auto) 24.6 %; Mean Corpuscular Hemoglobin 29.2 pg (25.0-34.0); Mean Corpuscular Hgb Conc 31.6 g/dL (32.0-36.0); Mean Corpuscular Volume 92.2 fL (80.0-100.0); Mean Platelet Volume 9.6 fL (9.4-12.4); Neutrophils # (auto) 1.81 K/uL (1.40-6.50); Neutrophils % (auto) 54.1 %; Nucleated RBC # (auto) 0.02 K/uL (0.00-0.12); Nucleated RBC % (auto) 0.6 %; Platelet Count 100 K/uL (130-400); RDW Coefficient of Variation 15.9 % (11.5-14.5); RDW Standard Deviation 53.1 fL (36.4-46.3); Red Blood Count 2.95 M/uL (4.70-6.10); White Blood Count 3.34 K/ul (4.8-10.8)
[2024-03-05 06:36] LABS: BUN Creatinine Ratio 11.5 (10-20); Calcium 8.6 mg/dl (8.6-10.3); Chol HDL Ratio 3.1 (0-5); Creatinine Clr Calc Pharmacy 65.4 ml/min; Est GFR (African American) 82.7 ml/min; Est GFR (Non-African American) 71.4 ml/min
[2024-03-05 06:55] LABS: Folate (Folic Acid),Ser orPlas > 22.30 ng/ml (>5.38)
[2024-03-05 06:56] LABS: Vitamin B12 331 pg/ml (180-914)
[2024-03-05 07:29] LABS: Estimated Average Glucose 103 mg/dl; Hemoglobin A1C 5.2 % (4.5-5.6)
--- NOTE | 2024-03-05 09:08 | Neurology Consultation ---
Date of Consultation March 05, 2024 Assessment & Plan (1) Monocular vision loss: 73M with a PMH of recurrent anemia who presents with monoccular vision loss in the left eye since the weekend. On exam he has no focal findings other than <20% vision loss in the left eye nasal field. CT and CTA are unremarkable. He isn't a candidate for antiplatelets/anticoagualtion due to severe, recurrent episodes of anemia. One potential cause of the vision loss is stroke, but there are many others that would require evaluation by an pipeline dispatch operator. Plan -- hold antiplatelets/anticoagulation - recommend ASA 81 when safe -- MRI brain without contrast -- echocardiogram -- outpatient ophthalmology evaluation (he has established with one) -- telemetry, goal normotension Telehealth Consultation Telehealth Information Telehealth Information: I performed this visit using a real-time telehealth connection between my location and the patients location ([facility]). After connecting through interactive tele-video, patient was identified by name and date of and/or wristband check.Patient (or authorized healthcare field support representative) was informed that this was a telemedicine visit and it was being conducted confidentially over secure lines. My office door was closed and no one else was present in the room with me.Patient (or authorized healthcare field support representative) provided consent to proceed with the visit, expressed an understanding of privacy and security of the telemedicine visit, and gave permission to have a hospital field support representative in the room in order to assist with the visit and to conduct portions of the visit, as needed. I informed the patient (or authorized healthcare field support representative) that I reviewed their record and presented the opportunity for them to ask any questions regarding the visit today. The patient agreed to participate. History of Present Illness Reason for Consultation: vision loss Attending Physician: Dougie Mccall MD History of Present Illness He has a history of prostate cancer which was complicated by radiation of proctitis resulting in several episodes of decreased HBG. Over the weekend he woke up and noticed that he was missing the nasal portion in his left eye. He says about 20% of the vision in his left eye was missing. Otherwise he denies any focal neurologic findings, but did endorse worsening SOB, exercise intolerance and fatigue. On presentation to the hospital he was found to be hypotensive and anemic and was give pRBC. Currently he says his vision has improved somewhat but he still has a small area of loss in the nasal field of his left eye; but his symptoms of SOB, and fatigue are greatly improved. He denies any numbness, weakness, headache, fevers, chills and chest pain. 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 He denies any significant change in his floaters. He denies eye pain. Allergies Allergy/AdvReac Type Severity Reaction Status Date / Time fentanyl AdvReac Intermediate Vomiting Verified 03/04/24 13:00 hydromorphone [From Dilaudid] AdvReac Intermediate vomiting Verified 03/04/24 13:00 oxycodone AdvReac Mild Nausea Verified 03/04/24 13:00 Home Medications Medication Instructions Recorded Confirmed Type allopurinol 100 mg tablet 100 mg PO QAM 11/18/18 03/04/24 History atorvastatin 20 mg tablet 20 mg PO HS 11/18/18 03/04/24 History coenzyme Q10 10 mg capsule 10 mg PO QAM 11/18/18 03/04/24 History lisinopril 20 mg tablet 20 mg PO QAM 11/18/18 03/04/24 History mometasone 50 mcg/actuation nasal 2 spray intranasal DAILY PRN 11/18/18 03/04/24 History spray Allergy Symptoms multivitamin 1 tab PO QAM 11/18/18 03/04/24 History vitamin B complex 1 tab PO QAM 11/18/18 03/04/24 History cetirizine 10 mg tablet (Zyrtec) 10 mg PO DAILY PRN Allergy Symptoms 11/22/21 03/04/24 History calcium carb-ergocalciferol (vit 1,000 tab PO DAILY 02/13/23 03/04/24 History D2) 500 mg-125 unit tablet cholecalciferol (vitamin D3) 25 25 mcg PO DAILY 02/13/23 03/04/24 History mcg (1,000 unit) capsule vitamin E mixed 400 unit capsule 400 unit PO QAM 02/13/23 03/04/24 History glimepiride 4 mg tablet 4 mg PO QAM 03/04/24 03/04/24 History mesalamine 1,000 mg rectal 1,000 mg NV HS 03/04/24 03/04/24 History suppository Patient History Medical History Anaplasmosis Thrombocytopenia Chronic- platelets baseline in the 90's per chart review dating back to at least 2018 ([facility]). Appears to have been initially noted during active anaplasmosis infection at that time which was treated. Surgical History History of umbilical hernia repair S/P cataract surgery right and left S/P cholecystectomy History of prostate surgery prostatectomy 2009 History of cystoscopy Family History Mother Coronary heart disease Father No problems noted. 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 Last used 03/01/24. 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 Feels Safe at Home: Yes Safety Concerns: Feels Safe At This Time Assistive Devices: None Review of Systems see HPI Physical Exam Mental Status:alert, oriented to time, place, person, normal recent memory, normal remote memory, normal attention span, normal concentration, normal language, and normal fund of knowledge Cranial Nerves: CN 2 - no visual defect on confrontation and pupils round, equal, reactive to light CN 3, 4, 6 - extra-ocular movements intact and no nystagmus CN 5 - facial sensation intact CN 7 - no facial asymmetry CN 8 - intact hearing CN 9, 10 - palate symmetric, normal gag CN 11 - good shoulder shrug CN 12 - tongue midline MOTOR: Strength was at least antigravity throughout, Pronator drift was absent, and There were no abnormal movements SENSATION: intact and symmetric to pinprick, light touch, vibration and joint position GAIT: stable, no ataxia, and can perform tandem walking COORDINATION: no ataxia with finger to nose testing and heel to anderson testing REFLEXES: cannot assess over telemedicine Results & Data Vital Signs (Past 12 Hours) Vital Signs Temp Pulse Pulse Resp BP Pulse Ox O2 Del Method 03/05/24 08:17 36.8 C 77 18 112/58 L 100 Room Air 03/05/24 07:58 Room Air 03/05/24 03:44 37.3 C 76 18 107/68 98 Room Air 03/04/24 22:02 89 Laboratory Results Abnormal Lab Results 03/04/24 03/04/24 03/04/24 10:29 10:31 11:37 WBC 3.20 L RBC 1.99 L Hgb 5.9 L* Hct 19.3 L* MCV 97.0 MCH 29.6 MCHC 30.6 L RDW Std Deviation 50.6 H RDW Coeff of Agustin 14.6 H Plt Count 102 L MPV 9.5 Immature Gran % (Auto) 0.3 Neut % (Auto) 57.8 Lymph % (Auto) 20.0 Lane % (Auto) 16.9 Eos % (Auto) 4.4 Baso % (Auto) 0.6 Neut # (Auto) 1.85 Lymph # (Auto) 0.[address] # (Auto) 0.54 Eos # (Auto) 0.14 Baso # (Auto) 0.02 Immature Gran # (Auto) 0.01 Absolute Nucleated RBC Nucleated RBC % (auto) Polychromasia 1+ Tear Drop Cells 1+ PT 11.7 INR 1.1 APTT 23 PTT Ratio 0.9 Sodium 135 L Potassium 4.1 Chloride 107 Carbon Dioxide 21 Anion Gap 7 BUN 13 Creatinine 0.99 Est Cr Clr Drug Dosing 68.7 Est GFR ( Amer) 87.8 Est GFR (Non-Af Amer) 75.8 BUN/Creatinine Ratio 13.1 Glucose 132 H POC Glucose 142 H Estimat Average Glucose Hemoglobin A1c Calcium 8.4 L Magnesium 1.9 Iron Transferrin 245 Total Bilirubin 0.4 AST 15 ALT 11 Alkaline Phosphatase 61 Troponin I High Sens 3.5 Total Protein 5.5 L Albumin 3.3 L Globulin 2.2 L Albumin/Globulin Ratio 1.5 Triglycerides Cholesterol LDL Cholesterol, Calc VLDL Cholesterol, Calc HDL Cholesterol Cholesterol/HDL Ratio Vitamin B12 Folate Urine Color Urine Appearance Urine pH Ur Specific [place] Urine Protein Urine Glucose (UA) Urine Ketones Urine Blood Urine Nitrite Urine Bilirubin Urine Urobilinogen Ur Leukocyte Esterase Blood Type A Positive Blood Type Recheck A Positive Antibody Screen NEGATIVE Crossmatch See Detail 03/04/24 03/04/24 03/04/24 17:00 18:01 20:09 WBC RBC Hgb 8.2 L Hct 26.4 L MCV MCH MCHC RDW Std Deviation RDW Coeff of Agustin Plt Count MPV Immature Gran % (Auto) Neut % (Auto) Lymph % (Auto) Lane % (Auto) Eos % (Auto) Baso % (Auto) Neut # (Auto) Lymph # (Auto) Lane # (Auto) Eos # (Auto) Baso # (Auto) Immature Gran # (Auto) Absolute Nucleated RBC Nucleated RBC % (auto) Polychromasia Tear Drop Cells PT INR APTT PTT Ratio Sodium Potassium Chloride Carbon Dioxide Anion Gap BUN Creatinine Est Cr Clr Drug Dosing Est GFR ( Amer) Est GFR (Non-Af Amer) BUN/Creatinine Ratio Glucose POC Glucose 76 85 Estimat Average Glucose Hemoglobin A1c Calcium Magnesium Iron Transferrin Total Bilirubin AST ALT Alkaline Phosphatase Troponin I High Sens Total Protein Albumin Globulin Albumin/Globulin Ratio Triglycerides Cholesterol LDL Cholesterol, Calc VLDL Cholesterol, Calc HDL Cholesterol Cholesterol/HDL Ratio Vitamin B12 Folate Urine Color Yellow Urine Appearance Clear Urine pH 8.0 H Ur Specific [place] 1.027 Urine Protein Negative Urine Glucose (UA) Negative Urine Ketones Negative Urine Blood Negative Urine Nitrite Negative Urine Bilirubin Negative Urine Urobilinogen Negative Ur Leukocyte Esterase Negative Blood Type Blood Type Recheck Antibody Screen Crossmatch 03/04/24 03/05/24 03/05/24 22:33 05:45 06:00 WBC 3.34 L RBC 2.95 L Hgb 8.5 L 8.6 L Hct 26.8 L 27.2 L MCV 92.2 MCH 29.2 MCHC 31.6 L RDW Std Deviation 53.1 H RDW Coeff of Agustin 15.9 H Plt Count 100 L MPV 9.6 Immature Gran % (Auto) 0.3 Neut % (Auto) 54.1 Lymph % (Auto) 24.6 Lane % (Auto) 15.0 Eos % (Auto) 5.4 Baso % (Auto) 0.6 Neut # (Auto) 1.81 Lymph # (Auto) 0.[address] # (Auto) 0.50 Eos # (Auto) 0.18 Baso # (Auto) 0.02 Immature Gran # (Auto) 0.01 Absolute Nucleated RBC 0.02 Nucleated RBC % (auto) 0.6 Polychromasia Tear Drop Cells PT INR APTT PTT Ratio Sodium 142 Potassium 4.0 Chloride 113 H Carbon Dioxide 20 L Anion Gap 9 BUN 12 Creatinine 1.04 Est Cr Clr Drug Dosing 65.4 Est GFR ( Amer) 82.7 Est GFR (Non-Af Amer) 71.4 BUN/Creatinine Ratio 11.5 Glucose 92 POC Glucose 100 H Estimat Average Glucose 103 Hemoglobin A1c 5.2 Calcium 8.6 Magnesium Iron 59 Transferrin Total Bilirubin AST ALT Alkaline Phosphatase Troponin I High Sens Total Protein Albumin Globulin Albumin/Globulin Ratio Triglycerides 124 Cholesterol 99 LDL Cholesterol, Calc 42 VLDL Cholesterol, Calc 25 HDL Cholesterol 32 Cholesterol/HDL Ratio 3.1 Vitamin B12 331 Folate > 22.30 Urine Color Urine Appearance Urine pH Ur Specific [place] Urine Protein Urine Glucose (UA) Urine Ketones Urine Blood Urine Nitrite Urine Bilirubin Urine Urobilinogen Ur Leukocyte Esterase Blood Type Blood Type Recheck Antibody Screen Crossmatch Diagnostic Findings Chest X-Ray 03/04/24 10:16 XR chest 1V portable CLINICAL HISTORY: neuro deficit, acute stroke suspected TECHNIQUE: Single frontal radiograph of the chest was obtained. Comparison: Comparison is made to chest radiograph 12/23/2018 FINDINGS: No lines and tubes are seen. Calcified aortic knob is seen. The lungs are clear. No evidence of pleural effusion or pneumothorax. IMPRESSION: No acute chest disease. ACT 112: Negative or not required by law. Electronically signed by: Trell Dudley M.D. 03/04/2024 10:[address] 03/04/24 10:16 CT head/brain wo con CLINICAL HISTORY: neuro deficit, acute stroke suspected Technique: Contiguous axial CT images of the head were acquired from the base of the skull to the vertex without intravenous contrast administration. Images were viewed in brain, subdural and bone windows. Automated dose lowering techniques and/or adjustment according to patient size were utilized for this exam. Comparison: None available at the time of this dictation. Findings: Areas of decreased attenuation are present in the periventricular and subcortical white matter bilaterally consistent with small vessel ischemic disease. Generalized cerebral atrophy with commensurate enlargement of the ventricles, sulci, and cisterns is also present. There is no acute intracranial hemorrhage or evidence of acute territorial infarction. No shift of the midline structures, mass effect, or extra-axial abnormalities are shown. Atherosclerotic calcifications are present in the intracranial segments of the internal carotid arteries. Imaged portions of the paranasal sinuses and mastoid air cells are clear. The orbits appear normal. There are no acute fractures of the calvaria or scalp swelling. Impression: No acute intracranial hemorrhage, no evidence of acute territorial infarction or other acute intracranial disease process. ACT 112: Negative or not required by law. Electronically signed by: Trell Dudley M.D. 03/04/2024 10:38 AM Head CTA 03/04/24 10:16 CT ANGIOGRAM OF THE BRAIN CLINICAL HISTORY: Neurological deficit. Stroke like symptoms. COMPARISON STUDY: Unenhanced CT of the brain performed concurrently on 03/04/2024. TECHNIQUE: Following the IV administration of 112 cc of Optiray 320, CT angiogram of the brain was performed from the skull base to the vertex. Images are reviewed in the axial, sagittal, and coronal planes. 3-D MIPS images are created and assessed. IV contrast was administered without complication. A dose lowering technique was utilized adhering to the principles of ALARA. CT DOSE: 1322.69 mGy.cm FINDINGS: Brain parenchyma: There is age-related involutional change noting mild subcortical and periventricular microangiopathic disease. There is no evidence of hemorrhage, mass effect, or acute territorial ischemia noting angiographic phase technique. There is no evidence of enhancing mass lesion on the angiogram phase images. No extra-axial fluid collection is seen. Billingsley-white matter differentiation is preserved. Ventricles, sulci, and cisterns: Prominent secondary to involutional change. CT angiogram of the brain: There is atherosclerotic calcification of the cavernous carotid and vertebral arteries. The internal carotid arteries are widely patent, as are the anterior and middle cerebral arteries. The vertebrobasilar system and posterior cerebral arteries are widely patent. The vertebral arteries are codominant. There is no aneurysm, high-grade stenosis, or focal vessel cutoff identified throughout the intracranial circulation. Dural sinuses: Clear as visualized. Orbits: The bony orbits are intact. The orbital contents are normal as visualized noting bilateral ocular lens implants. Sinuses and mastoids: There is moderate mucosal thickening within the maxillary antra and ethmoid sinuses. Trace mucosal thickening is seen in the left frontal sinus and the sphenoid sinuses. The mastoid air cells are well pneumatized. Calvarium: The skeletal structures are osteopenic. The calvarium appears intact. IMPRESSION: 1. There is no evidence of hemorrhage, mass effect, or acute territorial ischemia noting angiographic phase technique. 2. Unremarkable CT angiogram of the brain. ACT 112: Negative or not required by law. Electronically signed by: Dom Mendoza M.D. 03/04/2024 11:06 AM Neck CTA 03/04/24 10:16 CT ANGIOGRAPHY OF THE NECK WITH CONTRAST CLINICAL HISTORY: neuro deficit, acute stroke suspected COMPARISON STUDY: CT of the neck February 17, 2018. Technique: CT angiography of the carotid and vertebral arteries was obtained using Optiray and 3D reconstruction on an independent workstation. NASCET criteria was utilized. Automated exposure control was utilized for the study. A dose lowering technique was utilized adhering to the principles of ALARA. Findings: Visualized portions of the lung apices are unremarkable. There is no cervical spine fracture. No cervical lymphadenopathy is identified. There is moderate plaque within the proximal bilateral internal carotid arteries. This results in mild stenosis of the proximal right internal carotid artery. Vessel measures 3.2 mm at site of narrowing and 4 mm distally. There is 30% stenosis. There is no significant stenosis of the cervical portion of the left internal carotid artery. The bilateral vertebral arteries are patent. There is no aneurysm or dissection within the neck. There is moderate plaque at the origin of the right subclavian artery without stenosis. IMPRESSION: 1. Moderate atherosclerotic plaque within the proximal bilateral internal carotid arteries. Mild stenosis of the proximal right internal carotid artery. No stenosis within the cervical left internal carotid artery. 2. No dissection or aneurysm within the neck. ACT 112: Negative or not required by law. Electronically signed by: Jamison Kirk M.D. 03/04/2024 10:41 AM
--- NOTE | 2024-03-05 09:16 | History & Physical Bridge Note ---
Date of Service March 05, 2024 History & Physical Bridge Note I have examined the patient, reviewed the History & Physical and in the interval since the performance of the History & Physical I have noted the following changes of clinical significance: no changes noted. Patient has had two enemas. passed mostly clear liquid but did have some smaller, brown stool. no further bleeding per patient. 03/05/24 hgb 8.6 (previously 8.5). he denies any nausea, vomiting, heartburn, abdominal pain, chest pain, or SOB. - will plan to proceed with flex sig today with APC.
--- NOTE | 2024-03-05 11:11 | Anesthesiology Consultation ---
Date of Service March 05, 2024 Assessment & Plan ASA ASA3E Proposed Anesthesia Anesthesia Type: MAC Risk / Benefits Reviewed With: PT / POA / Parent / Guardian, Accepts Plan and Informed Consent Obtained Additional Comments: pt has vision loss that could be from a cva, workup pending but most will happen as an outpatient. if dr tate feels it can not wait for stroke work up we will proceed and try to minimize bp swings. pt accepts the increased risk of procedure History Surgery Operation Date: 03/05/24 16:30 Proposed Procedures p Flexible Sigmoidoscopy Eduardo Clark MD Height/Weight Height: 5 ft 6 in Weight: 84.4 kg Allergies Allergy/AdvReac Type Severity Reaction Status Date / Time fentanyl AdvReac Intermediate Vomiting Verified 03/04/24 13:00 hydromorphone [From Dilaudid] AdvReac Intermediate vomiting Verified 03/04/24 13:00 oxycodone AdvReac Mild Nausea Verified 03/04/24 13:00 Medications Home Medications Medication Instructions Recorded Confirmed Last Taken allopurinol 100 mg tablet 100 mg PO QAM 11/18/18 03/04/24 03/04/24 atorvastatin 20 mg tablet 20 mg PO HS 11/18/18 03/04/24 03/03/24 coenzyme Q10 10 mg capsule 10 mg PO QAM 11/18/18 03/04/24 03/04/24 lisinopril 20 mg tablet 20 mg PO QAM 11/18/18 03/04/24 03/04/24 mometasone 50 mcg/actuation nasal 2 spray intranasal DAILY PRN 11/18/18 03/04/24 11/25/21 spray Allergy Symptoms multivitamin 1 tab PO QAM 11/18/18 03/04/24 03/04/24 vitamin B complex 1 tab PO QAM 11/18/18 03/04/24 03/04/24 cetirizine 10 mg tablet (Zyrtec) 10 mg PO DAILY PRN Allergy Symptoms 11/22/21 03/04/24 11/25/21 calcium carb-ergocalciferol (vit 1,000 tab PO DAILY 02/13/23 03/04/24 03/04/24 D2) 500 mg-125 unit tablet cholecalciferol (vitamin D3) 25 25 mcg PO DAILY 02/13/23 03/04/2424 mcg (1,000 unit) capsule vitamin E mixed 400 unit capsule 400 unit PO QAM 02/13/23 03/04/24 03/04/24 glimepiride 4 mg tablet 4 mg PO QAM 03/04/24 03/04/24 03/04/24 mesalamine 1,000 mg rectal 1,000 mg ND HS 03/04/24 03/04/24 03/03/24 suppository Active Medications Generic Name Dose Route Start Last Admin Trade Name Fartun PRN Reason Stop Dose Admin Sodium Chloride 1,000 mls @ 75 mls/hr 03/04/24 16:18 03/05/24 05:54 Nss IV 04/03/24 16:17 75 mls/hr .[id number] THIERRY Administration Pantoprazole Sodium 40 mg/ 10 mls @ 5 mls/min 03/04/24 16:18 03/05/24 08:05 Syringe IV 04/03/24 16:17 5 mls/min BID THIERRY Administration Insulin Aspart 0 units 03/04/24 18:00 03/05/24 06:00 Insulin Aspart Per Unit Charge SC 04/03/24 17:59 Not Given Q6 THIERRY NPO Date Last Intake of Fluids: 03/04/24 Time Last Intake of Fluids: 22:00 Date Last Intake of Solids: 03/03/24 Time Last Intake of Solids: 17:30 Past Medical History Medical History Anaplasmosis Thrombocytopenia Chronic- platelets baseline in the 90's per chart review dating back to at least 2017 ([facility]). Appears to have been initially noted during active anaplasmosis infection at that time which was treated. Exercise / Class Metabolic Activity II 4-5 Yardwork/Stairs/Walk up hill Past Family History Family History Mother Coronary heart disease Father No problems noted. Brother COPD (chronic obstructive pulmonary disease) Past Surgical History Surgical History History of umbilical hernia repair S/P cataract surgery right and left S/P cholecystectomy History of prostate surgery prostatectomy 2009 History of cystoscopy Past Anesthesia History No Hx of Anesthesia Complications and No Family Hx of Anesthesia Complications History of PONV No Hx of PONV and No Hx of Motion Sickness Social History Smoking Status: Never smoker Do You Dip or Chew Tobacco: No Hx Alcohol Use: No Alcohol type: beer and wine alcohol intake frequency: a few times a month Hx Substance Use: Yes substance use type: marijuana Last Used Substance: Days (ago) Last Used Substance Other:: Patient has a [employer] marijuana card. Last used 03/01/24. Review of Systems denies fever/cough/ colds/ chest pain/ SOB/ MODESTA denies MODESTA Physical Exam Vital Signs Last Vital Signs Temp 36.9 C 03/05/24 10:06 Pulse 86 03/05/24 10:17 Resp 20 03/05/24 10:06 BP 120/69 03/05/24 10:06 Pulse Ox 98 03/05/24 10:06 O2 Del Method Room Air 03/05/24 10:06 ENMT Mouth: no TMJ abnormality and no dentition abnormality Thyromental Distance: > or= 3.5 Finger Breadths Mallampati Class: II Neck neck extension not limited Respiratory normal respiratory effort; no respiratory distress Auscultation: lungs clear to auscultation bilaterally Cardiovascular Rate/Rhythm: regular rate and regular rhythm Neurologic moves all extremities Psychiatric Orientation: alert and oriented x 3 Testing Laboratory Results 03/05/24 05:45 03/05/24 05:45 PT 11.7 Seconds (9.0-12.0) 03/04/24 10:29 INR 1.1 (0.9-1.1) 03/04/24 10:29 APTT 23 Seconds (21-31) 03/04/24 10:29 Hemoglobin A1c 5.2 % (4.5-5.6) 03/05/24 05:45 Urine Color Yellow 03/04/24 17:00 Urine Appearance Clear (Clear) 03/04/24 17:00 Urine pH 8.0 (4.5-7.5) H 03/04/24 17:00 Ur Specific [place] 1.027 (1.000-1.030) 03/04/24 17:00 Urine Protein Negative (Negative) 03/04/24 17:00 Urine Glucose (UA) Negative (Negative) 03/04/24 17:00 Urine Ketones Negative (Negative) 03/04/24 17:00 Urine Nitrite Negative (Negative) 03/04/24 17:00 Ur Leukocyte Esterase Negative (Negative) 03/04/24 17:00 Blood Type A Positive 03/04/24 10:31 Antibody Screen NEGATIVE 03/04/24 10:31 03/05/24 06:00 POC Glucose 100 H
--- NOTE | 2024-03-05 11:42 | GI REPORT ---
[facility] Patient: KULWINDER LOTT : 1950 Sex at : Male Age: 73 Years Procedure: Flexible Sigmoidoscopy Date: 03/05/2024 Attending Physician: Gigi Clark MD Referring MD: Dougie Mccall Md Indications: - Rectal hemorrhage Medications: - See the Anesthesia note for documentation of the administered medications Complications: - No immediate complications. Estimated Blood Loss: - Estimated blood loss was minimal. Procedure: - The pediatric colonoscope was introduced through the anus and advanced to the sigmoid colon. - The flexible sigmoidoscopy was accomplished without difficulty. - The patient tolerated the procedure well. - The quality of the bowel preparation was adequate. Findings: - Diffuse vascular ectasia and a clean based rectal ulcer with active oozing. Treated with APC ablation and active bleeding controlled. Epinephrine bath also inserted into rectum. Impression: - Diffuse vascular ectasia and a clean based rectal ulcer with active oozing. Treated with APC ablation and active bleeding controlled. Epinephrine bath also inserted into rectum. - No specimens collected. Recommendation: Procedure Code(s): - 66076, Sigmoidoscopy, flexible; diagnostic, including collection of specimen(s) by brushing or washing, when performed (separate procedure) Diagnosis Code(s): - K62.5, Hemorrhage of anus and rectum CPT(R) - 2023 copyright [employer]. All Rights Reserved. The CPT codes, CCI edits and ICD codes generated are intended as suggestions and were generated based on input data. These codes are preliminary and upon information technology security manager review may be revised to meet current compliance and payer requirements. The provider is responsible for the final determination of appropriate codes, and modifiers. Gigi Clark MD This document has been electronically signed. Note Initiated:03/05/2024 Note Completed:03/05/2024 11:42 AM \\[id number]
--- NOTE | 2024-03-05 11:46 | Communication Note ---
Date of Service: March 05, 2024 POST PROCEDURE NOTE See Provation note for complete report. Summary: Diffuse vascular ectasia and single clean based ulcer in rectum. There was active oozing and touch bleeding. The area was lavaged and APC applied to vascular ectasia with hemostasis achieved. The area then was bathed with epinephrine and saline. Patient has a very friable rectum with vascular ectasia consistent with radiation proctitis. He should restart his mesalamine suppositories tomorrow. He may rebleed but no absolute contraindication from GI standpoint to use of anticoagulation if needed. Advance diet to soft. If rebleeds can attempt another flex sig.
--- NOTE | 2024-03-05 11:59 | Anesthesiology Progress Note ---
Date of Service March 05, 2024 Anesthesia Post Procedure Vital Signs Vital Signs: Temp Pulse Pulse Resp BP BP Pulse Ox 03/05/24 11:57 76 16 108/64 99 03/05/24 11:42 76 16 108/66 96 03/05/24 10:17 86 03/05/24 10:06 36.9 C 79 20 120/69 98 03/05/24 08:17 36.8 C 77 18 112/58 L 100 03/05/24 07:58 03/05/24 03:44 37.3 C 76 18 107/68 98 03/04/24 22:02 89 03/04/24 20:10 37.7 C H 75 18 113/69 99 03/04/24 18:00 03/04/24 17:51 36.9 C 80 18 136/64 98 03/04/24 17:19 36.9 C 73 18 129/70 100 03/04/24 17:15 129/70 03/04/24 17:15 129/70 03/04/24 17:15 129/70 03/04/24 17:15 129/70 03/04/24 17:15 79 18 100 03/04/24 17:00 78 18 116/86 100 03/04/24 16:57 72 18 100 03/04/24 16:48 75 18 100 03/04/24 16:45 123/65 03/04/24 16:45 123/65 03/04/24 16:30 124/71 03/04/24 16:30 124/71 03/04/24 16:24 74 15 100 03/04/24 16:16 115/77 03/04/24 16:12 78 12 100 03/04/24 16:00 121/70 03/04/24 16:00 121/70 03/04/24 16:00 121/70 03/04/24 16:00 77 18 127/92 100 03/04/24 15:45 127/72 03/04/24 15:45 127/72 03/04/24 15:42 70 18 100 03/04/24 15:36 71 20 100 03/04/24 15:30 120/76 03/04/24 15:30 74 18 120/76 100 03/04/24 15:30 36.8 C 75 14 120/76 100 03/04/24 15:15 122/66 03/04/24 15:15 73 18 122/66 100 03/04/24 15:12 36.8 C 71 12 121/64 100 03/04/24 15:07 121/64 03/04/24 14:45 76 18 117/65 99 03/04/24 14:41 76 03/04/24 14:00 69 18 104/61 100 03/04/24 13:30 70 20 101/61 100 03/04/24 13:15 36.6 C 75 18 115/70 03/04/24 12:59 36.7 C 77 18 117/62 100 03/04/24 12:15 76 15 98 03/04/24 12:00 110/61 03/04/24 12:00 110/61 O2 Del Method 03/05/24 11:57 Room Air 03/05/24 11:42 Room Air 03/05/24 10:17 03/05/24 10:06 Room Air 03/05/24 08:17 Room Air 03/05/24 07:58 Room Air 03/05/24 03:44 Room Air 03/04/24 22:02 03/04/24 20:10 Room Air 03/04/24 18:00 Room Air 03/04/24 17:51 Room Air 03/04/24 17:19 Room Air 03/04/24 17:15 03/04/24 17:15 03/04/24 17:15 03/04/24 17:15 03/04/24 17:15 03/04/24 17:00 03/04/24 16:57 03/04/24 16:48 03/04/24 16:45 03/04/24 16:45 03/04/24 16:30 03/04/24 16:30 03/04/24 16:24 03/04/24 16:16 03/04/24 16:12 03/04/24 16:00 03/04/24 16:00 03/04/24 16:00 03/04/24 16:00 03/04/24 15:45 03/04/24 15:45 03/04/24 15:42 03/04/24 15:36 03/04/24 15:30 03/04/24 15:30 03/04/24 15:30 03/04/24 15:15 03/04/24 15:15 03/04/24 15:12 03/04/24 15:07 03/04/24 14:45 03/04/24 14:41 03/04/24 14:00 03/04/24 13:30 03/04/24 13:15 03/04/24 12:59 03/04/24 12:15 03/04/24 12:00 03/04/24 12:00 Transfer of Care Handoff Completed per policy Notes Mental Status: alert / awake / arousable and participated in evaluation Patient Amnestic to Procedure: Yes Nausea / Vomiting: adequately controlled Pain: adequately controlled Airway Patency, RR, SpO2: stable & adequate BP & HR: stable & adequate Hydration State: stable & adequate Anesthetic Complications: no major complications apparent and Pt Satisfied with anesthetic care
[2024-03-05] MEDS ORDERED: Nursing to Pharmacy Communication SCH ×2 (13:00→17:45)
[2024-03-05] MEDS: EPINEPHrine INJ 1 MG/ML AMP ONE (13:02)
[2024-03-05] MEDS: PROPOFOL IV EMULSION 10 MG/ML 20 ML VIAL IV ONE (13:02)
[2024-03-05] MEDS: SODIUM CHLORIDE 0.9% 500 ML IV SCH (13:02)
[2024-03-05] MEDS: LIDOCAINE 2% 2 ML VIAL/AMP(20MG/ML) INFIL ONE (13:02)
[2024-03-05] MEDS ORDERED: CETIRIZINE HCL 10 MG TABLET PO PRN (14:20)
[2024-03-05] MEDS ORDERED: FLUTICASONE PROPIONATE NA SPR 16 GM BTL PRN (14:25)
--- NOTE | 2024-03-05 14:28 | Hospitalist Progress Note ---
Date of Service March 05, 2024 Assessment & Plan (1) Anemia: (2) Rectal bleeding: (3) Radiation proctitis: (4) Prostate cancer: (5) Stroke-like symptoms: Plan 73-year-old male with history of diabetes type 2, hypertension, metastatic prostate cancer, status post prostatectomy, radiation therapy, radiation proctitis presenting with dizziness. He is being managed for the following: Strokelike symptoms, left facial droop, left visual symptoms r/o TIA vs Acute CVA, in the setting of severe anemia CT head: No acute process CT angiogram head and neck: Atherosclerotic plaques of bilateral ICA, mild stenosis RCA Left facial droop not observed on my exam Mild left blurring of vision still present though per pt. LDL 42, c/w home lipitor. GI and Neuro evaluating, will start baby aspirin from jose. Monitor HnH closely. f/u MRI brain and echo. OP opthalmo eval recommended. Severe anemia secondary acute blood loss anemia secondary to hematochezia iso radiation proctitis Status post EGD and colonoscopy in February 28, 2024--->Positive for gastritis, radiation proctitis status post APC, positive for polyps and diverticulosis Mesalamine suppository and iron supplements started as an outpatient. Continue suppository from jose Admitting Hb 5.9, s/p 2 unit prbc --> Hb 8.6. S/p Sigmoidoscopy 03/05: Diffuse vascular ectasia and clean-based rectal ulcer with active oozing. Treated with APC ablation and active bleeding controlled. Epinephrine bath also inserted into the rectum. No specimen collected. GI on board, no c/i for anticoagulation. Adv diet to soft. monitor HnH. c/w protonix bid Iron panel - b12 low normal, supplement. Pancytopenia: PBS reviewed. monitor HnH. hematology as OP. Diabetes type 2: Hold glimepiride. Insulin sliding scale for now Hypertension: under control, resume as able. Metastatic prostate cancer: Status post prostatectomy in 2008, status post radiation therapy. Follows with urology as an outpatient and radiation clinic DVT prophylaxis: SCDs for now Full code Disposition: likely dc jose. Admission and Anticipated Discharge Date Admission Date: March 04, 2024 Subjective Patient was seen and examined at bedside. Patient was sitting up in bed, on room air, NAD, resting comfortably. Patient is a status post sigmoidoscopy, is eating okay, no bleeding and BM after the scope. Patient denies any febrile illness or chest pain or headache or dizziness or abdominal pain. Physical Exam Physical Exam: General- oriented x 3, not in distress, speaks in sentences with no effort or accessory muscle use Head- atraumatic Eyes- PERRL, EOMI, anicteric ENT- oropharynx clear Neck- supple, no JVD, no adenopathy, no thyromegaly; carotids +2/2, no bruits appreciated Lungs- clear to auscultation bilaterally, no rales/wheezes Heart- normal rate, regular rhythm; no murmur, no gallop, no rub appreciated Abdomen- normal bowel sounds, nondistended, soft, nontender, no masses or hepatosplenomegaly Extremities- no pretibial edema, no calf tenderness; peripheral pulses intact Neuro- alert, oriented x 3; CN 2-12 grossly intact except for mild blurring of vision in the left eye; motor 5/5 bilaterally;sensation 100% on all extremities; no other gross focal neurologic deficits Skin- warm & dry Results & Data Results & Data Vital Signs (Past 12 Hours) Vital Signs Temp Pulse Pulse Resp BP Pulse Ox O2 Del Method 03/05/24 12:16 77 16 119/68 96 Room Air 03/05/24 11:57 76 16 108/64 99 Room Air 03/05/24 11:42 76 16 108/66 96 Room Air 03/05/24 10:17 86 03/05/24 10:06 36.9 C 79 20 120/69 98 Room Air 03/05/24 08:17 36.8 C 77 18 112/58 L 100 Room Air 03/05/24 07:58 Room Air 03/05/24 03:44 37.3 C 76 18 107/68 98 Room Air (1) Anemia Anemia type: unspecified type Qualified Code(s): D64.9 - Anemia, unspecified
[2024-03-05] MEDS: CYANOCOBALAMIN (B-12) 500 MCG TABLET PO SCH (14:53)
[2024-03-05] MEDS ORDERED: LORazepam 0.5 MG TAB PO STA (15:02)
[2024-03-05] MEDS: INSULIN ASPART PER UNIT CHARGE SC SCH (17:29)
[2024-03-05] MEDS: LORazepam 0.5 MG TAB PO STA (17:46)
--- NOTE | 2024-03-05 19:16 | Magnetic Resonance Report ---
MR brain wo con CLINICAL HISTORY: left eye blurring of vision, r/o cva TECHNIQUE: Multiplanar and multisequence MR images of the brain were obtained without intravenous con trast. Comparison: None available at the time of this dictation. FINDINGS: No abnormal restricted diffusion is identified. The white matter is unremarkable. Ex vacuo ventriculo megaly and sulcal enlargement is noted compatible with diffuse volume loss. No mass is seen. There is no mass effect or midline shift. There is no evidence of acute intraparenchymal hemorrhage. No extra axial fluid collections are seen. The corpus callosum, pituitary gland, and cerebellar tonsils appea r grossly unremarkable. Flow voids of the major intracranial arterial vessels are identified. The imaged portions of the para nasal sinuses, mastoid air cells, and orbits are unremarkable. IMPRESSION: No acute abnormality and in particular no evidence of acute infarct. ACT 112: Negative or not required by law. Electronically signed by: Trell Dudley M.D. 03/05/2024 7:14 PM
[2024-03-05] MEDS: ATORVASTATIN 20 MG TAB PO SCH (20:50)
[2024-03-06 06:44] LABS: Basophils # (auto) 0.02 K/uL (0.00-0.20); Basophils % (auto) 0.6 %; Eosinophils # (auto) 0.17 K/uL (0.00-0.50); Eosinophils % (auto) 4.9 %; Hematocrit (blood only) 28.9 % (42.0-52.0); Hemoglobin 9.1 g/dl (14.0-18.0); Immature Granulocytes # (auto) 0.01 K/uL (0.01-0.20); Immature Granulocytes % (auto) 0.3 %; Lymphocytes # (auto) 0.87 K/uL (1.20-3.40); Mean Corpuscular Hemoglobin 29.4 pg (25.0-34.0); Mean Corpuscular Hgb Conc 31.5 g/dL (32.0-36.0); Mean Corpuscular Volume 93.5 fL (80.0-100.0); Mean Platelet Volume 9.7 fL (9.4-12.4); Monocytes # (auto) 0.46 K/uL (0.11-0.59); Monocytes % (auto) 13.2 %; Neutrophils # (auto) 1.95 K/uL (1.40-6.50); Platelet Count 101 K/uL (130-400); RDW Coefficient of Variation 15.5 % (11.5-14.5); RDW Standard Deviation 52.9 fL (36.4-46.3); Red Blood Count 3.09 M/uL (4.70-6.10); White Blood Count 3.48 K/ul (4.8-10.8)
[2024-03-06 07:02] LABS: BUN Creatinine Ratio 13.1 (10-20); Calcium 8.6 mg/dl (8.6-10.3); Creatinine Clr Calc Pharmacy 68.8 ml/min; Est GFR (African American) 87.8 ml/min; Est GFR (Non-African American) 75.8 ml/min; Phosphorus 3.9 mg/dl (2.5-4.9); Potassium 3.9 mmol/L (3.5-5.1)
[2024-03-06] MEDS: CHOLECALCIFEROL 25 MCG (1000 UNITS) TAB PO SCH (08:53)
[2024-03-06] MEDS: allopurinoL 100 MG TAB PO SCH (08:53)
[2024-03-06] MEDS: MULTIVITAMIN TAB PO SCH (08:55)
[2024-03-06] MEDS: lisinopril 20 MG TAB PO SCH (08:58)
--- NOTE | 2024-03-06 09:24 | Gastroenterology Progress Note ---
<Statement entered by Gigi Clark MD - 03/06/24 13:39> Patient seen and examined. Case discussed with David PYLE. Patient feels well. Tolerated solid food and had BMs with minute amount of dried blood. Rec: Mesalamine supp bid Soft diet Repeat Flex sig in 2-3 months as OP IP GI Service will sign off. Date of Service March 06, 2024 Assessment & Plan (1) Radiation proctitis: Plan Patient has had no further rectal bleeding. He feels well. He is hoping for discharge today. - he should start mesalamine suppository daily. he was prescribed previously by his primary GI team at [facility]. - he should follow up with his primary GI team on discharge at [facility]. Admission and Anticipated Discharge Date Admission Date: March 04, 2024 Subjective Patient tells me that he has had no further rectal bleeding. He has moved his bowels since procedure. rest of gi ros unremarkable. he tells me he is hopeful t o be discharged today. 03/06 hgb 9.1 (previously 8.6) Flex sig 03/05 Diffuse vascular ectasia and single clean based ulcer in rectum. There was active oozing and touch bleeding. The area was lavaged and APC applied to vascular ectasia with hemostasis achieved. The area then was bathed with epinephrine and saline. Review of Systems Review of Systems: All systems reviewed & are unremarkable except as noted in HPI & below Physical Exam Constitutional: WD/WN, vitals as above Respiratory: normal respiratory effort, lungs clear to auscultation Cardiovascular: RRR, no murmur, no edema Gastrointestinal (Abdomen): normal bowel sounds, soft, nontender, no hepatosplenomegaly Psychiatric: Orientation: alert and oriented x 3 Affect: euthymic affect Results & Data Results & Data Vital Signs (Past 12 Hours) Vital Signs Temp Pulse Pulse Resp BP Pulse Ox O2 Del Method 03/06/24 09:03 103/68 03/06/24 08:07 98.1 F 98 H 18 95/56 L 96 Room Air 03/06/24 07:29 67 03/06/24 02:41 98.4 F 75 18 100/61 96 Room Air 03/05/24 22:42 98.1 F 60 20 116/63 98 Room Air 03/05/24 21:56 75 Coding Level of Care Code 59716 SUB INP/OBS CARE 09/14MIN Diagnoses Radiation proctitis K62.7
--- NOTE | 2024-03-06 12:57 | Pharmacy Report ---
- Date of Service March 06, 2024 - Pharmacy CVA/TIA Medication Review Medications to Prevent Stroke handout has been added to the patients discharge packet. Antiplatelet(s) * Per neurology documentation not a candidate for antiplatelets/anticoagulation d/t severe recurrent episodes of anemia but is recommending asa 81 mg when safe Cholesterol * Statin: atorvastatin 20 mg daily DVT Prophylaxis * Pharmacologic prophylaxis deferred due to anemia Therapeutic Anticoagulation * No history of Afib/Aflutter noted Type 2 Diabetes * Patient has T2DM, a diabetes medication with proven CVD benefit may be deferred to their outpatient provider due to familiarity with risks/benefits of such therapies. "Medications to prevent stroke" handout has already been added to the patient's discharge packet, which instructs the patient to follow up with their outpatient provider to evaluate which diabetes medication with proven CVD benefit is best for them. Most recent A1c 5.2%.
[2024-03-06] MEDS ORDERED: STROKE PATIENT DISCHARGE STA (13:08)
--- NOTE | 2024-03-06 13:11 | Discharge Summary ---
Date of Service March 06, 2024 Admission HPI Per Admitting Provider 73-year-old male with history of diabetes type 2, hypertension, metastatic prostate cancer, status post prostatectomy, radiation therapy, radiation proctitis presenting with persistent hematochezia, left eye blurring of vision. Patient has a history of metastatic prostate cancer status post prostatectomy in 2008 and radiation therapy last session March 2023. For the past 3 months, he has been having progressive hematochezia. He underwent an EGD and colonoscopy February 28, 2024 which showed gastritis, radiation proctitis status post APC, polyps and diverticulosis. He was started on mesalamine suppository and iron supplements. Patient still reports persistent frequent hematochezia 2-3 times per day. Today, patient noted that he was having blurring of vision on the left eye, prompting consult to the ER. At the ER, blood pressure 123/71, pulse rate 86, saturating 100% on room air. At the triage area, patient was noted to have left-sided facial droop and left eye visual disturbance. CT head no acute process CT angiogram head and neck showing plaques at the bilateral ICA, mild stenosis of the right ICA Hemoglobin 5.6. 2 units of packed RBCs ordered In light of patient's severe anemia, suspected GI bleeding secondary to radiation proctitis, stroke alert canceled as patient is not a candidate for tPA and patient's left facial droop and visual symptoms are chronic per ER MD's assessment On exam, patient seen resting in bed, comfortable, not in distress, very pleasant gentleman Denies active shortness of breath, chest pain, palpitations, dizziness No hematochezia so far while in the ER Reports mild blurring of vision, left eye No other neurologic symptoms Admission Exam Per Admitting Provider General- oriented x 3, not in distress, speaks in sentences with no effort or accessory muscle use Head- atraumatic Eyes- PERRL, EOMI, anicteric ENT- oropharynx clear Neck- supple, no JVD, no adenopathy, no thyromegaly; carotids +2/2, no bruits appreciated Lungs- clear to auscultation bilaterally, no rales/wheezes Heart- normal rate, regular rhythm; no murmur, no gallop, no rub appreciated Abdomen- normal bowel sounds, nondistended, soft, nontender, no masses or hepatosplenomegaly Extremities- no pretibial edema, no calf tenderness; peripheral pulses intact Neuro- alert, oriented x 3; CN 2-12 grossly intact except for mild blurring of vision in the left eye; motor 5/5 bilaterally;sensation 100% on all extremities; no other gross focal neurologic deficits Skin- warm & dry Principal Diagnosis Strokelike symptoms, left facial droop, left visual symptoms Severe anemia secondary to acute blood loss anemia secondary to hematochezia in the setting of radiation proctitis Pancytopenia Discharge Exam General- oriented x 3, not in distress, speaks in sentences with no effort or accessory muscle use Head- atraumatic Eyes- PERRL, EOMI, anicteric ENT- oropharynx clear Neck- supple, no JVD, no adenopathy, no thyromegaly; carotids +2/2, no bruits appreciated Lungs- clear to auscultation bilaterally, no rales/wheezes Heart- normal rate, regular rhythm; no murmur, no gallop, no rub appreciated Abdomen- normal bowel sounds, nondistended, soft, nontender, no masses or hepatosplenomegaly Extremities- no pretibial edema, no calf tenderness; peripheral pulses intact Neuro- alert, oriented x 3; CN 2-12 grossly intact except for mild blurring of vision in the left eye; motor 5/5 bilaterally;sensation 100% on all extremities; no other gross focal neurologic deficits Skin- warm & dry Discharge Data Allergies Allergy/AdvReac Type Severity Reaction Status Date / Time fentanyl AdvReac Intermediate Vomiting Verified 03/04/24 13:00 hydromorphone [From Dilaudid] AdvReac Intermediate vomiting Verified 03/04/24 13:00 oxycodone AdvReac Mild Nausea Verified 03/04/24 13:00 Consultations 03/04/24 11:37 ED Decision to Admit Stat 03/04/24 16:18 Consult Gastroenterology Routine Consult Neurology Routine Procedures Performed Operation Date: 03/05/24 16:30 Actual Procedures p Flexible Sigmoidoscopy Hemostasis - Gigi Clark MD Ordered Studies 03/04/24 10:16 CT angio head w con Stat CT angio neck with con Stat CT head/brain wo con Stat 03/05/24 00:46 MR brain wo con Routine Hospital Course (1) Anemia: (2) Rectal bleeding: (3) Radiation proctitis: (4) Prostate cancer: (5) Stroke-like symptoms: Plan 73-year-old male with history of diabetes type 2, hypertension, metastatic prostate cancer, status post prostatectomy, radiation therapy, radiation proctitis presenting with dizziness. He was managed for the following: Strokelike symptoms, left facial droop, left visual symptoms r/o TIA vs Acute CVA, in the setting of severe anemia CT head: No acute process CT angiogram head and neck: Atherosclerotic plaques of bilateral ICA, mild stenosis RCA Left facial droop not observed on my exam Mild left blurring of vision still present though per pt. LDL 42, c/w home lipitor. GI and Neuro evaled, start baby aspirin. f/u MRI brain and echo ---> no acute findings. OP opthalmo eval recommended. Severe anemia secondary acute blood loss anemia secondary to hematochezia iso radiation proctitis Status post EGD and colonoscopy in February 28, 2024--->Positive for gastritis, radiation proctitis status post APC, positive for polyps and diverticulosis Mesalamine suppository and iron supplements started as an outpatient. Continue suppository as prior Admitting Hb 5.9, s/p 2 unit prbc --> Hb 8.6. S/p Sigmoidoscopy 03/05: Diffuse vascular ectasia and clean-based rectal ulcer with active oozing. Treated with APC ablation and active bleeding controlled. Epinephrine bath also inserted into the rectum. No specimen collected. GI on board, no c/i for anticoagulation. Tolerating diet well, decreased GI bleed w/ BM, HnH getting better. Protonix dc'd since it is rectal bleed. Iron panel - b12 low normal, supplement. Pancytopenia: PBS reviewed. monitor HnH. hematology as OP. Diabetes type 2: Hold glimepiride. Insulin sliding scale for now Hypertension: under control, resume as able. Metastatic prostate cancer: Status post prostatectomy in 2008, status post radiation therapy. Follows with urology as an outpatient and radiation clinic DVT prophylaxis: SCDs for now Full code patient is being discharged home with following instruction at the point of discharge: Follow-up with your primary care physician within a week time and likely you will need labs CBC/CMP/magnesium/phosphorus. For your left facial droop and left visual symptoms, you were evaluated by neurology. You are being started on baby aspirin daily. Follow-up with ophthalmology as an outpatient in a week or 2 weeks time. Coordinate with your PCP office to set up the referral. You underwent sigmoidoscopy and APC ablation of the bleeding site. You can continue your mesalamine suppository from today. Follow-up with GI in 2 to 4 weeks time upon discharge. You also have pancytopenia meaning all 3 blood cell lines are lower than normal. You will benefit from being evaluated by hematology as an outpatient. Coordinate with your PCP office to set up the referral. Follow-up with your urology as prior. Take your medications as prescribed. Please make sure that you are able to get your medications today by calling your pharmacy before you leave the hospital so that your treatment continuity is not broken. Home Health Attestation I certify that this patient is under my care and that I, or a physicians training and development assistant working with me, had a face to-face encounter that meets the home health [id number] encounter requirements with this patient. The encounter with the patient was in whole, or in part, for the following medical condition, which is the primary reason for home health care (list medical condition): I certify that, based on my findings, the following services are medically necessary home health services: My clinical findings support the need for the above services because: Further, I certify that my clinical findings support that this patient is homebound (i.e. absences from home require considerable and taxing effort and are for medical reasons or [facility]aritan services or infrequently or of short duration when for other reasons) because: Certification for Home Health Services: Based on the above findings, I certify that this patient is confined to the home and needs intermittent mcc care, physical therapy and/or speech therapy or continues to need occupational therapy. The patient is under my care, and I have initiated the establishment of the plan of care. This patient will be followed by a physician who will periodically review the plan of care. Total Time Total Time Spent Total Time Spent (In Minutes): 45 Discharge Plan Discharge Items Patient Disposition: Home - Self-Care Reason For Visit: SEVERE ANEMIA, STROKE LIKE SYMPTOMS Discharge Diagnosis: Strokelike symptoms, left facial droop, left visual symptoms Severe anemia secondary to acute blood loss anemia secondary to hematochezia in the setting of radiation proctitis Pancytopenia Activity: Resume your previous activity Non-emergency contact: Primary Care Provider Call non-emergency contact if: you have any medication questions Follow-up/Referrals: Shorty Gonzales, DO [Primary Care Provider] - (Date & Time 03/14/2024 1:00 PM Provider Flaco Pineda MD Department [facility] ) Diet: Carb Consistent or DM2 Diet Texture: Dental soft (bite-sized) Addtl Attending Provider Instructions: Follow-up with your primary care physician within a week time and likely you will need labs CBC/CMP/magnesium/phosphorus. For your left facial droop and left visual symptoms, you were evaluated by neuro logy. You are being started on baby aspirin daily. Follow-up with ophthalmology as an outpatient in a week or 2 weeks time. Coordinate with your PCP office to set up the referral. You underwent sigmoidoscopy and APC ablation of the bleeding site. You can continue your mesalamine suppository from today. Follow-up with GI in 2 to 4 weeks time upon discharge. You also have pancytopenia meaning all 3 blood cell lines are lower than normal. You will benefit from being evaluated by hematology as an outpatient. Coordinate with your PCP office to set up the referral. Follow-up with your urology as prior. Take your medications as prescribed. Please make sure that you are able to get your medications today by calling your pharmacy before you leave the hospital so that your treatment continuity is not broken. Pending Studies at Discharge: No Stand-Alone Forms: My [facility] [employer], Smoking Cessation, Medications to Prevent Stroke Medications and DC Order Prescriptions: New cyanocobalamin (vitamin B-12) 500 mcg Tablet 500 mcg PO QAM Qty: 30 0RF aspirin 81 mg tablet,delayed release (DR/EC) 81 mg PO DAILY Qty: 30 0RF Continued vitamin E mixed 400 unit capsule 400 unit PO QAM calcium carbonate-vitamin D2 500-125 mg-unit tablet 1,000 tab PO DAILY cholecalciferol (vitamin D3) 25 mcg (1,000 unit) capsule 25 mcg PO DAILY multivitamin Tablet 1 tab PO QAM atorvastatin 20 mg tablet 20 mg PO HS lisinopril 20 mg tablet 20 mg PO QAM coenzyme Q10 10 mg Capsule 10 mg PO QAM allopurinol 100 mg tablet 100 mg PO QAM mometasone 50 mcg/actuation spray,non-aerosol 2 spray intranasal DAILY PRN (Reason: Allergy Symptoms) vitamin B complex Tablet 1 tab PO QAM cetirizine [Zyrtec] 10 mg Tablet 10 mg PO DAILY PRN (Reason: Allergy Symptoms) glimepiride 4 mg tablet 4 mg PO QAM mesalamine 1,000 mg suppository 1,000 mg MO HS Discharge Orders: Discharge Order (Routine); Ordered 03/06/24 Ordered By: Dougie Mccall Admission Data Admit Date/Time: 03/04/24 12:02 Attending Provider: Dougie Mccall Admit Provider: New Chin Primary Care Provider: Shorty Gonzales Other Providers: [place]; Gigi Clark; Nanci Azar; Markus Montes De Oca; Nanci Torres; Joon Mcdonald; Isaiah Rios; Gerald Sellers; Lam Lima; Raegan Goodman; Gee Nguyen; Mekhi Vu; Leslie Hernandez; Michael Langley; Milvia Ferrera; Melissa Navarro; Lam Landaverde
--- NOTE | 2024-03-07 14:47 | Pharmacy Report ---
Pharmacist Stroke Counseling - Date of Service March 07, 2024 - Scope: Pharmacy has been consulted to provide medication discharge counseling for this patient admitted with stroke-like symptoms as per the Pharmacist Discharge Counseling for Stroke Patients Protocol. - Medications on Discharge: Home Medications Medication Instructions Recorded Confirmed allopurinol 100 mg tablet 100 mg PO QAM 11/18/18 03/04/24 atorvastatin 20 mg tablet 20 mg PO HS 11/18/18 03/04/24 coenzyme Q10 10 mg capsule 10 mg PO QAM 11/18/18 03/04/24 lisinopril 20 mg tablet 20 mg PO QAM 11/18/18 03/04/24 mometasone 50 mcg/actuation nasal 2 spray intranasal DAILY PRN 11/18/18 03/04/24 spray Allergy Symptoms multivitamin 1 tab PO QAM 11/18/18 03/04/24 vitamin B complex 1 tab PO QAM 11/18/18 03/04/24 cetirizine 10 mg tablet (Zyrtec) 10 mg PO DAILY PRN Allergy Symptoms 11/22/21 03/04/24 calcium carb-ergocalciferol (vit 1,000 tab PO DAILY 02/13/23 03/04/24 D2) 500 mg-125 unit tablet cholecalciferol (vitamin D3) 25 25 mcg PO DAILY 02/13/23 03/04/24 mcg (1,000 unit) capsule vitamin E mixed 400 unit capsule 400 unit PO QAM 02/13/23 03/04/24 glimepiride 4 mg tablet 4 mg PO QAM 03/04/24 03/04/24 mesalamine 1,000 mg rectal 1,000 mg ID HS 03/04/24 03/04/24 suppository New Rx's Medication Instructions Recorded aspirin 81 mg tablet,delayed 81 mg PO DAILY #30 tabs 03/06/24 release cyanocobalamin (vitamin B-12) 500 500 mcg PO QAM #30 tabs 03/06/24 mcg tablet - Action: The above medications, specifically ones for stroke treatment/prophylaxis, have been reviewed in detail with the patient via telephone post discharge. This includes indication, common adverse reactions, drug interactions, and medication administration. Medication counseling has been employed using the teach-back method to ensure understanding. - Outcome: The patient demonstrated understanding of the medications. Additional comments: -Patient had questions regarding ongoing rectal bleeding and use of baby aspirin. Referred him to consult his oncologist/PCP for further guidance or discuss with neurology office. Thank you for allowing pharmacy to be involved in the care of this patient. Please call [phone] with any additional questions
== END 2024-03-06 14:40 | disposition home or self-care (01) | DRG 394 ==
LOC: ED 09:53 → EDINP 12:02 → SUATTDRO 12:02 → 2E 17:19